=== PATIENT | female | born 1945 | race African-American/Black ===

== ENCOUNTER 2017-01-26 19:53 | Emergency (ER) | payer OTHER ==
[2017-01-26 20:06] VITALS: TEMP 98; BMI 29.7
[2017-01-26] MEDS ORDERED: OXYCODONE/APAP 5/325MG COMBO TABLET PO ONE ×2 (20:45→21:51)
[2017-01-26] MEDS ORDERED: OXYCODONE/APAP 5/325MG COMBO TABLET ONE ×2 (20:48→22:04)
--- NOTE | 2017-01-26 21:12 | PDOC ---
[id number] No Limitations - History of Present Illness Initial Comments: 01/26/17 21:29 The patient is a 71 year old female with past medical history of hypertension, hyperlipidemia, type 2 diabetes, ESRD (on dialysis TTS) who presents to the ED with complaints of left foot pain which began today. She locates the pain to the base of 5th metatarsal. She states she usually experiences left foot pain, but pain that began today is different today. She denies any recent trauma/ surgeries. She denies any recent illness, fever, chills, nausea, vomiting, diarrhea, cough, shortness of breath, chest pain or urinary symptoms. PCP: Shawn Bansal <Mel Mcgowan - Last Filed: 01/26/17 23:08> <Phill Reveles - Last Filed: 02/05/17 01:23> - General Chief Complaint: Pain Stated Complaint: FOOT PAIN Time Seen by Provider: 01/26/17 20:34 Past History <Mel Mcgowan - Last Filed: 01/26/17 23:08> - Past Medical History Anemia: No Asthma: Yes Cancer: No Cardiac Disorders: No CVA: No COPD: No CHF: No Dementia: No Diabetes: Yes (steriod induced) Dialysis: Yes GI Disorders: No Disorders: No HTN: Yes Hypercholesterolemia: No Liver Disease: No Seizures: No Thyroid Disease: No - Surgical History Abdominal Surgery: No Appendectomy: No Cardiac Surgery: No Cholecystectomy: No Lung Surgery: No Neurologic Surgery: No Orthopedic Surgery: No - Immunization History Immunization Up to Date: Yes - Psycho/Social/Smoking Cessation Hx Anxiety: No Suicidal Ideation: No Smoking History: Never smoked Have you smoked in the past 12 months: No Information on smoking cessation initiated: No Hx Alcohol Use: No Drug/Substance Use Hx: No Substance Use Type: None Hx Substance Use Treatment: No <Phill Reveles - Last Filed: 02/05/17 01:23> - Past Medical History Allergies/Adverse Reactions: Allergies Allergy/AdvReac Type Severity Reaction Status Date / Time Penicillins Allergy "UNSURE-I Verified 01/26/17 20:06 WAS A CHILD" ciprofloxacin AdvReac Verified 01/26/17 20:06 Home Medications: Ambulatory Orders Atenolol [Tenormin -] 25 mg PO DAILY 12/14/15 Pantoprazole Sodium [Protonix -] 40 mg PO DAILY 12/14/15 Folic Acid/Vit Bcomp,C [Dialyvite 800 Tablet] 0.8 mg PO DAILY 01/27/16 Sevelamer Carbonate [Renvela] 800 mg PO TID 01/27/16 Cinacalcet HCl [Sensipar] 30 mg PO DAILY 01/26/17 Oxycodone HCl/Acetaminophen [Percocet 10-325 mg Tablet] 1 each PO TID PRN #6 tablet MDD 3 01/26/17 Review of Systems - Review of Systems Able to Perform ROS?: Yes Comments:: 01/26/17 21:29 GENERAL/CONSTITUTIONAL: No fever or chills. No weakness. HEAD, EYES, EARS, NOSE AND THROAT: No change in vision. No ear pain or discharge. No sore throat. CARDIOVASCULAR: No chest pain or shortness of breath. RESPIRATORY: No cough, wheezing, or hemoptysis. GASTROINTESTINAL: No nausea, vomiting, diarrhea or constipation. GENITOURINARY: No dysuria, frequency, or change in urination. MUSCULOSKELETAL: Present: left foot pain No neck or back pain. SKIN: No rash NEUROLOGIC: No headache, vertigo, loss of consciousness, or change in strength/ sensation. ENDOCRINE: No increased thirst. No abnormal weight change. HEMATOLOGIC/LYMPHATIC: No anemia, easy bleeding, or history of blood clots. ALLERGIC/IMMUNOLOGIC: No hives or skin allergy. All Other Systems: Reviewed and Negative <Mel Mcgowan - Last Filed: 01/26/17 23:08> *Physical Exam - Vital Signs Last Vital Signs Temp Pulse Resp BP Pulse Ox 98.0 F 76 17 145/74 99 01/26/17 20:03 01/26/17 20:03 01/26/17 20:03 01/26/17 20:03 01/26/17 20:03 - Physical Exam Comments: 01/26/17 21:30 GENERAL: Awake, alert, and fully oriented, in no acute distress HEAD: No signs of trauma EYES: PERRLA, EOMI, sclera anicteric, conjunctiva clear ENT: Auricles normal inspection, hearing grossly normal, nares patent, oropharynx clear without exudates. Moist mucosa NECK: Normal ROM, supple, no lymphadenopathy, JVD, or masses LUNGS: Breath sounds equal, clear to auscultation bilaterally. No wheezes, and no crackles HEART: Regular rate and rhythm, normal S1 and S2, no murmurs, rubs or gallops ABDOMEN: Soft, nontender, normoactive bowel sounds. No guarding, no rebound. No masses EXTREMITIES: Pain on palpation to 5th metatarsal. Normal range of motion, no edema. No clubbing or cyanosis. No cords, no erythema. NEUROLOGICAL: Cranial nerves II through XII grossly intact. Normal speech, normal gait SKIN: Warm, Dry, normal turgor, no rashes or lesions noted. <Mel Mcgowan - Last Filed: 01/26/17 23:08> - Vital Signs Last Vital Signs Temp Pulse Resp BP Pulse Ox 98.0 F 76 17 145/74 99 01/26/17 20:03 01/26/17 20:03 01/26/17 20:03 01/26/17 20:03 01/26/17 20:03 <Phill Reveles - Last Filed: 02/05/17 01:23> ED Treatment Course - RADIOLOGY Radiograph Interpretation: 01/26/17 23:08 Referring Physician: Phill Reveles Patient Name: Leonela Ricsk THIS IS A PRELIMINARY REPORT FROM IMAGING VIDEOTAPE RECORDING ENGINEER IMAGES: 3 EXAM DATE AND TIME: 21:12:17.0 EXAM: X-RAY LEFT FOOT Periosteal reaction fifth metatarsal and cuboid bone, possibly due to chronic soft tissue inflammation but cannot exclude osteomyelitis. Degenerative chagnes ankle, midfoot and forefoot. Contour deformities multiple toes and metatarsals. Probable amputations fourth and fifth toes. No acute fracture or dislocation. THIS DOCUMENT HAS BEEN ELECTRONICALLY SIGNED Suzette Mcknight M.D. 01/26/2017 22:52 DEJUAN Crawford Please call Imaging Cylinder Sander Operator [phone] ([phone]) with questions. - Medications Given in the ED: ED Medications Discontinued Medications Generic Name Dose Route Start Last Admin Trade Name Freq PRN Reason Stop Dose Admin Oxycodone/Acetaminophen 1 combo 01/26/17 20:45 01/26/17 20:51 Percocet 5/325 - PO 01/26/17 20:46 1 combo ONCE ONE Administration <Mel Mcgowan - Last Filed: 01/26/17 23:08> - RADIOLOGY Radiology Studies Ordered: Category Date Time Status FOOT-LEFT [RAD] Stat Radiology 01/26/17 21:08 Ordered - Medications Given in the ED: ED Medications Discontinued Medications Generic Name Dose Route Start Last Admin Trade Name Cristiana PRN Reason Stop Dose Admin Oxycodone/Acetaminophen 1 combo 01/26/17 20:45 01/26/17 20:51 Percocet 5/325 - PO 01/26/17 20:46 1 combo ONCE ONE Administration <Phill Reveles - Last Filed: 02/05/17 01:23> Medical Decision Making - Medical Decision Making 01/26/17 23:05 This is a 71yo F with h/o leprosy who presents with breakthrough of her chronic pain. She denies trauma and has constitutional symptoms. She reports the pain is identical to her typical breakthrough pain. She is given analgesia with percocet and will be given Rx for same. The image shows significant bony dystruction which is chronic and she has no suggestion clinically or objectively of infection. Also, I have suggested her return if there is any change otherwise and to follow up with the PMD within the next 24 hours for reevaluation. She ambulates well without any assistance. 01/28/17 02:07 She is feeling improved and has no current symptoms; She is given analgesia and instructed to return to the ED if there is any change otherwise in symptoms. The XR shows chronic destruction secondary to remote issue. 02/05/17 01:23 <Phill Reveles - Last Filed: 02/05/17 01:23> *DC/Admit/Observation/Transfer - Attestations Scribe Attestion: 01/26/17 21:36 Documentation prepared by Mel Mcgowan, acting as medical pathologist for Phill Reveles MD. <Mel Mcgowan - Last Filed: 01/26/17 23:08> - Discharge Dispostion Admit: No Decision to Admit order Date/Time: 01/26/17 23:02 <Phill Reveles - Last Filed: 02/05/17 01:23> Diagnosis at time of Disposition: Foot pain, bilateral, Foot pain, left - Discharge Dispostion Disposition: HOME Condition at time of disposition: Good - Prescriptions Prescriptions: Oxycodone HCl/Acetaminophen [Percocet 10-325 mg Tablet] 1 each PO TID PRN #6 tablet MDD 3 PRN Reason: Pain - Referrals Referrals: Shawn Bansal MD [Primary Care Provider] - - Patient Instructions Additional Instructions: At this time, the symptoms are likely breakthrough pain from your chronic foot issues. Please follow up with a laborer [facility] and your PMD within the next 24 hours for reevaluation. If there is any change otherwise in your symptoms, please return immediately to the ED.
[2017-01-26] MEDS ORDERED: traMADol HCL 50 MG TABLET PO ONE (23:03)
[2017-01-26] MEDS ORDERED: traMADol HCL 50 MG TABLET ONE (23:06)
[2017-01-26 23:09] VITALS: BP 138/76; PULSE 77
== END 2017-01-26 23:10 | disposition home or self-care (01) ==
LOC: JER 19:53 → JERFT 19:53 → JER 23:10
DX: M79.672 Pain in left foot (principal); M79.671 Pain in right foot; A30.9 Leprosy, unspecified; J45.909 Unspecified asthma, uncomplicated; I10 Essential (primary) hypertension; Z99.2 Dependence on renal dialysis
CPT/HCPCS: 73630-TC-LT; 99282-25

== ENCOUNTER 2017-03-31 09:47 | Inpatient (IN) | payer OTHER ==
--- NOTE | 2017-03-31 10:49 | PDOC ---
History of Present Illness <Marquita Mason - Last Filed: 03/31/17 12:17> - General History Source: Patient Exam Limitations: No Limitations - History of Present Illness Initial Comments: 03/31/17 10:58 The patient is a 71 year old female with past medical history of hypertension, hyperlipidemia, type 2 diabetes, ESRD (on dialysis TTS) who presents to the ED with a possible upper right extremity fistula clot. She states she was unable to get her dialysis today because the venous needle couldn't flush. She denies fever, chills, nausea, vomiting, diarrhea, dysuria, frequency. Patient has had the right upper arm extremity fistula for 1 year. She recently had a clot extraction for upper vein thrombus 4 days ago. Fistula was working fine after. Patients last dialysis two days ago No fever chills nausea vomiting Vascular surgeon: Dr. Maldonado PCP: Dr. Shawn Bansal <Blaise Beverly - Last Filed: 03/31/17 12:22> - General Chief Complaint: Dialysis Shunt Problem Stated Complaint: AV GRAFT COMPLICATIONS (DIALYSIS) Past History - Past Medical History Anemia: No Asthma: Yes Cancer: No Cardiac Disorders: No CVA: No COPD: No CHF: No Dementia: No Diabetes: Yes (steriod induced) Dialysis: Yes (tues, th, sat) GI Disorders: No Disorders: No HTN: Yes Hypercholesterolemia: No Liver Disease: No Seizures: No Thyroid Disease: No - Surgical History Abdominal Surgery: No Appendectomy: No Cardiac Surgery: No Cholecystectomy: No Lung Surgery: No Neurologic Surgery: No Orthopedic Surgery: Yes (LEFT HAND MANY YEARS AGO) - Immunization History Immunization Up to Date: Yes - Psycho/Social/Smoking Cessation Hx Anxiety: No Suicidal Ideation: No Smoking History: Never smoked Have you smoked in the past 12 months: No Information on smoking cessation initiated: No Hx Alcohol Use: No Drug/Substance Use Hx: No Substance Use Type: None Hx Substance Use Treatment: No <Marquita Mason - Last Filed: 03/31/17 12:17> <Blaise Beverly - Last Filed: 03/31/17 12:22> - Past Medical History Allergies/Adverse Reactions: Allergies Allergy/AdvReac Type Severity Reaction Status Date / Time Penicillins Allergy "UNSURE-I Verified 03/31/17 09:52 WAS A CHILD" ciprofloxacin AdvReac Severe Verified 03/31/17 09:52 Home Medications: Ambulatory Orders Atenolol [Tenormin -] 25 mg PO DAILY 12/14/15 Pantoprazole Sodium [Protonix -] 40 mg PO DAILY 12/14/15 Folic Acid/Vit Bcomp,C [Dialyvite 800 Tablet] 0.8 mg PO DAILY 01/27/16 Sevelamer Carbonate [Renvela] 800 mg PO TID 01/27/16 Cinacalcet HCl [Sensipar] 30 mg PO DAILY 01/26/17 Review of Systems - Review of Systems Able to Perform ROS?: Yes Comments:: 03/31/17 10:58 GENERAL/CONSTITUTIONAL: No fever or chills. No weakness. HEAD, EYES, EARS, NOSE AND THROAT: No change in vision. No ear pain or discharge. No sore throat. CARDIOVASCULAR: No chest pain or shortness of breath. RESPIRATORY: No cough, wheezing, or hemoptysis. GASTROINTESTINAL: No nausea, vomiting, diarrhea or constipation. GENITOURINARY: No dysuria, frequency, or change in urination. MUSCULOSKELETAL: No joint or muscle swelling or pain. No neck or back pain. SKIN: No rash NEUROLOGIC: No headache, vertigo, loss of consciousness, or change in strength/ sensation. ENDOCRINE: No increased thirst. No abnormal weight change. Upper right extremity fistula. HEMATOLOGIC/LYMPHATIC: No anemia, easy bleeding, or history of blood clots. ALLERGIC/IMMUNOLOGIC: No hives or skin allergy. <Blaise Beverly - Last Filed: 03/31/17 12:22> *Physical Exam - Vital Signs Last Vital Signs Temp Pulse Resp BP Pulse Ox 97.5 F L 68 18 156/70 100 03/31/17 09:53 03/31/17 09:53 03/31/17 09:53 03/31/17 09:53 03/31/17 09:53 <Marquita Mason - Last Filed: 03/31/17 12:17> - Vital Signs Last Vital Signs Temp Pulse Resp BP Pulse Ox 97.5 F L 68 18 156/70 100 03/31/17 09:53 03/31/17 09:53 03/31/17 09:53 03/31/17 09:53 03/31/17 09:53 - Physical Exam Comments: 03/31/17 10:59 GENERAL: Awake, alert, and fully oriented, in no acute distress HEAD: No signs of trauma EYES: PERRLA, EOMI, sclera anicteric, conjunctiva clear ENT: Auricles normal inspection, hearing grossly normal, nares patent, oropharynx clear without exudates. Moist mucosa NECK: Normal ROM, supple, no lymphadenopathy, JVD, or masses LUNGS: Breath sounds equal, clear to auscultation bilaterally. No wheezes, and no crackles HEART: Regular rate and rhythm, normal S1 and S2, no murmurs, rubs or gallops ABDOMEN: Soft, nontender, normoactive bowel sounds. No guarding, no rebound. No masses EXTREMITIES: right upper extremity fistula is good, thrill, bruin, no erythema , no palpable clot. Normal range of motion, no edema. No clubbing or cyanosis. No cords, erythema, or tenderness NEUROLOGICAL: Normal speech, normal gait SKIN: Warm, Dry, normal turgor, no rashes or lesions noted. <Blaise Beverly - Last Filed: 03/31/17 12:22> Heart Score/ECG Review - ECG Intrepretation Rhythm: Regular Rhythm Comment:: 03/31/17 12:14 rate 69 bpm, normal axis. no st elevation or depression <Marquita Mason - Last Filed: 03/31/17 12:17> ED Treatment Course - LABORATORY CBC & Chemistry Diagram: 03/31/17 11:20 03/31/17 11:20 <Marquita Mason - Last Filed: 03/31/17 12:17> - LABORATORY CBC & Chemistry Diagram: 03/31/17 11:20 03/31/17 11:20 <Blaise Beverly - Last Filed: 03/31/17 12:22> Medical Decision Making - Medical Decision Making 03/31/17 10:45 71 yo F ESRD TRS here with fistula not working. states had venoplasty on right arm for upper arm clot 4 days ago. fistula was working day following. today not working. no sob. no chills. no n/v last dialysis 2 [address]. vascular surgeon Dr. maldonado on exam awake alert, no acute distress. lungs clear no wheeze. heart RRR no m/r/ b. abd soft nt. skin warm and dry. RUE fistula good bruit, thrill. plan : d/w dr. maldonado, vascular surgeon, r/o hyperkalemia, ekg labs . will possible require us RUQ r/o upper ext DVT. 03/31/17 11:07 03/31/17 12:15 d/w dr. maldonado, believes fistulal working, good bruit, ultrasound shows patent fistula. will d/w dr. mcfarlane, arrange for dialysis today. d/w dr. hzeng for admission <Marquita Mason - Last Filed: 03/31/17 12:17> - Medical Decision Making 03/31/17 11:[address] Stefano Maldonado. <Blaise Beverly - Last Filed: 03/31/17 12:22> *DC/Admit/Observation/Transfer - Discharge Dispostion Admit: Yes <Marquita Mason - Last Filed: 03/31/17 12:17> - Attestations Scribe Attestion: 03/31/17 11:00 Documentation prepared by Blaise Beverly, acting as medical office secretary for Marquita Mason MD, MD. <Blaise Beverly - Last Filed: 03/31/17 12:22> Diagnosis at time of Disposition: AV fistula, Dialysis AV fistula malfunction - Referrals Referrals: Shawn Bansal MD [Primary Care Provider] -
[2017-03-31 11:45] LABS: BASOPHIL 0.7 % (0-2.0); EOSINOPHIL 4.3 % (0-4.5); MCH 34.7 pg (25.7-33.7); MCHC 33.4 g/dl (32.0-36.0); MEAN CELL VOLUME 104.1 fl (80-96); MEAN PLT VOLUME 8.3 fl (7.5-11.1); PLATELET COUNT 179 K/MM3 (134-434); RDW 17.1 % (11.6-15.6); WHITE BLOOD COUNT 5.9 K/mm3 (4.0-10.0)
[2017-03-31 11:55] LABS: CALCIUM 8.4 mg/dL (8.5-10.1)
[2017-03-31 12:01] LABS: ALBUMIN 3.8 g/dl (3.4-5.0); BILIRUBIN,TOTAL 0.7 mg/dL (0.2-1.0); COCKROFT - GAULT 5.678
--- NOTE | 2017-03-31 12:01 | EKG ---
Test Reason : Blood Pressure : / mmHG Vent. Rate : 069 BPM Atrial Rate : 069 BPM P-R Int : 178 ms QRS Dur : 086 ms QT Int : 420 ms P-R-T Axes : 020 009 057 degrees QTc Int : 450 ms NORMAL SINUS RHYTHM NORMAL ECG WHEN COMPARED WITH ECG OF 01-JAN-2016 08:21, NO SIGNIFICANT CHANGE WAS FOUND Confirmed by MD FRANTZ, AFUA ([id number]) on 03/31/2017 12:01:26 PM Referred By: Confirmed By:AFUA LANDRY MD
[2017-03-31 12:06] LABS: CREATININE 10.7 mg/dL (0.55-1.02)
[2017-03-31] MEDS ORDERED: EPOETIN ALFA 10,000 UNIT/1 ML VIAL SQ ONE (12:45)
--- NOTE | 2017-03-31 14:47 | CONSULT ---
Consult Consult Specialty:: Nephrology ( Drs. Rashid/ Giuseppe) Referred by:: Dr. Mason Reason for Consultation:: Malfunctining AV Fistula. The patient came for dialysis to the HD unit, and the AVF was not functioning well. Cannulation was not possible. 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, secondary to ANCA vasculitis ) Infectious Disease: Yes: Other (leprosy at age 18 treated for four years) Musculoskeletal: Yes: Other (digital amp) Dermatology: Yes: Other (leprosy related scarring) - Past Surgical History Past Surgical History: Yes: None - Alcohol/Substance Use Hx Alcohol Use: No History of Substance Use: reports: None - Smoking History Smoking history: Never smoked Have you smoked in the past 12 months: No - Social History Usual Living Arrangement: With Child ADL: Independent History of Recent Travel: No Home Medications - Allergies Allergies/Adverse Reactions: Allergies Allergy/AdvReac Type Severity Reaction Status Date / Time Penicillins Allergy "UNSURE-I Verified 03/31/17 09:52 WAS A CHILD" ciprofloxacin AdvReac Severe Verified 03/31/17 09:52 - Home Medications Home Medications: Ambulatory Orders Atenolol [Tenormin -] 25 mg PO DAILY 12/14/15 Pantoprazole Sodium [Protonix -] 40 mg PO DAILY 12/14/15 Folic Acid/Vit Bcomp,C [Dialyvite 800 Tablet] 0.8 mg PO DAILY 01/27/16 Sevelamer Carbonate [Renvela] 800 mg PO TID 01/27/16 Cinacalcet HCl [Sensipar] 30 mg PO DAILY 01/26/17 Review of Systems - Review of Systems Constitutional: denies: Fever, Lethargy, Loss of Appetite Respiratory: denies: Cough, Hemoptysis Genitourinary: denies: Burning Musculoskeletal: denies: Back Pain Physical Exam Vital Signs: Vital Signs Temperature 97.7 F 03/31/17 13:26 Pulse Rate 62 03/31/17 13:26 Respiratory Rate 20 03/31/17 13:26 Blood Pressure 157/71 03/31/17 13:26 O2 Sat by Pulse Oximetry (%) 100 03/31/17 13:26 Constitutional: Yes: Well Nourished, No Distress HENT: Yes: Normocephalic Neck: Yes: Trachea Midline Cardiovascular: Yes: S1, S2 Respiratory: Yes: CTA Bilaterally. No: Rales, Rhonchi, SOB Gastrointestinal: Yes: Normal Bowel Sounds, Soft Extremities: Yes: Other (right arm AVF with good bruit) Problem List - Problems (1) AV fistula Code(s): I77.0 - ARTERIOVENOUS FISTULA, ACQUIRED (2) Dialysis AV fistula malfunction Code(s): T82.590A - [facility] COMPL OF SURGICALLY CREATED ARTERIOVENOUS FISTULA, INIT (3) Hyperkalemia Code(s): E87.5 - HYPERKALEMIA (4) Suzanne's granulomatosis with renal involvement Code(s): M31.31 - SUZANNE'S GRANULOMATOSIS WITH RENAL INVOLVEMENT (5) End stage chronic kidney disease Code(s): N18.6 - END STAGE RENAL DISEASE Z99.2 - DEPENDENCE ON RENAL DIALYSIS Assessment/Plan 71 y/o female with ESRD, on HD, admitted with malfunctoning right arm AVF. The Patient's AVF was cannulated withoutincident. Most likely problem in the HD unit was vascular spasm , with inability to cannulate the fistula The AVF is working well. The patient receiving HD. Goood blood flow. No objection to discharge after dialysis. Thank you. Joy Rashid MD
[2017-03-31 17:59] VITALS: BMI 30.9
--- NOTE | 2017-03-31 18:40 | HP ---
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, secondary to ANCA vasculitis ) Heme/Onc: Yes: Anemia Infectious Disease: Yes: Other (leprosy at age 18 treated for four years) Musculoskeletal: Yes: Other (digital amp) Dermatology: Yes: Other (leprosy related scarring) - Past Surgical History Past Surgical History: Yes: None - Smoking History Smoking history: Never smoked Have you smoked in the past 12 months: No - Alcohol/Substance Use Hx Alcohol Use: No History of Substance Use: reports: None - Social History ADL: Independent History of Recent Travel: No Home Medications - Allergies Allergies/Adverse Reactions: Allergies Allergy/AdvReac Type Severity Reaction Status Date / Time Penicillins Allergy "UNSURE-I Verified 03/31/17 09:52 WAS A CHILD" ciprofloxacin AdvReac Severe Verified 03/31/17 09:52 - Home Medications Home Medications: Ambulatory Orders Atenolol [Tenormin -] 25 mg PO DAILY 12/14/15 Pantoprazole Sodium [Protonix -] 40 mg PO DAILY 12/14/15 Folic Acid/Vit Bcomp,C [Dialyvite 800 Tablet] 0.8 mg PO DAILY 01/27/16 Sevelamer Carbonate [Renvela] 800 mg PO TID 01/27/16 Cinacalcet HCl [Sensipar] 30 mg PO DAILY 01/26/17 Physical Examination Vital Signs: Vital Signs Temperature 97.6 F 03/31/17 18:00 Pulse Rate 76 03/31/17 18:00 Respiratory Rate 18 03/31/17 18:00 Blood Pressure 114/72 03/31/17 18:00 O2 Sat by Pulse Oximetry (%) 96 03/31/17 17:51
[2017-03-31] MEDS: SEVELAMER CARBONATE 800 MG TAB (FP) PO SCH (21:34)
[2017-04-01] MEDS: SEVELAMER CARBONATE 800 MG TAB (FP) PO SCH (08:15)
[2017-04-01 08:55] VITALS: BP 152/69; PULSE 66; TEMP 98
[2017-04-01] MEDS ORDERED: VITAMIN B COMP W-C 1 EA TABLET PO SCH (10:00)
[2017-04-01] MEDS ORDERED: CINACALCET HCL 30 MG TAB (FP) PO SCH (10:00)
[2017-04-01] MEDS ORDERED: PANTOPRAZOLE 40 MG TABLET (FP) PO SCH (10:00)
[2017-04-02 14:12] LABS: HEP B SURFACE AB Reactive (.)
== END 2017-04-01 09:14 | disposition home or self-care (01) | DRG 314 ==
LOC: JER 09:47 → JERBED 12:20 → J5S 18:13
PROVIDERS: ADMIT Internal Medicine; ATTEND Internal Medicine
PROC: 5A1D00Z (ICD-10-PCS; principal; 2017-03-31)
DX: T82.590A Other mechanical complication of surgically created arteriovenous fistula, initial encounter (principal); N18.6 End stage renal disease; M31.31 Wegener's granulomatosis with renal involvement; I12.0 Hypertensive chronic kidney disease with stage 5 chronic kidney disease or end stage renal disease; Y83.8 Other surgical procedures as the cause of abnormal reaction of the patient, or of later complication, without mention of misadventure at the time of the procedure; Y92.89 Other specified places as the place of occurrence of the external cause; K21.9 Gastro-esophageal reflux disease without esophagitis; D64.9 Anemia, unspecified; E78.5 Hyperlipidemia, unspecified; E09.9 Drug or chemical induced diabetes mellitus without complications; T38.0X5A Adverse effect of glucocorticoids and synthetic analogues, initial encounter; Z99.2 Dependence on renal dialysis; Z89.029 Acquired absence of unspecified finger(s)
CPT/HCPCS: 36415; 80053; 85025; 86704; 86706; 86708; 86803; 87340; 93005; 93010; 93971; 94760; 99284-25; J0885

== ENCOUNTER 2017-12-05 05:46 | Emergency (ER) | payer OTHER ==
[2017-12-05 06:31] VITALS: TEMP 97.9; BMI 30.3
--- NOTE | 2017-12-05 07:37 | PDOC ---
History of Present Illness - General History Source: Patient Exam Limitations: No Limitations - History of Present Illness Initial Comments: 12/05/17 08:11 The patient is a 71 year old female, with a significant past medical history of asthma, diabetes, hypertension, ESRD(on dialysis T, , S, last completed dialysis yesterday; blood work was done which was negative), who presents to the emergency department complaining of nose bleeds for approximately 4 days. The patient reports intermittent nose bleeds for the past 4 days with episodes lasting about 15 minutes. However, this morning patient reports sudden onset of epistaxis when she woke up and her episode lasted about 45 minutes. She describes her bleeding as clots from the left nostril. Patient reports she has been applying pressure to her nose, ice to her forehead, and nasal saline solution with mild relief of symptoms. She denies any associated fever, chills, cough, headache, dizziness, or lightheadedness. She denies any nausea, vomiting , hemoptysis, diarrhea, or constipation. Patient reports her room gets really warm at night and she occasionally experiences a dried nose. She denies any recent trauma. She denies any chest pain, shortness of breath, diaphoresis, or palpitations. She denies any recent travel or sick contacts. Allergies: Penicillins, Ciprofloxacin Past Surgical History: Amputation of left hand metacarpals Social History: Non smoker. No ETOH or recreational drug use. PCP: Dr. Bansal <Nehal Welch - Last Filed: 12/05/17 08:11> - General History Source: Patient Exam Limitations: No Limitations <Marcy Wharton - Last Filed: 12/05/17 11:40> - General Chief Complaint: Nasal Bleeding Stated Complaint: NOSEBLEED Time Seen by Provider: 12/05/17 07:36 Past History <Nehal Welch - Last Filed: 12/05/17 08:11> - Past Medical History Anemia: No Asthma: Yes Cancer: No Cardiac Disorders: No CVA: No COPD: No CHF: No Dementia: No Diabetes: Yes (steriod induced) Dialysis: Yes (, , sun) GI Disorders: No Disorders: No HTN: Yes Hypercholesterolemia: No Liver Disease: No Seizures: No Thyroid Disease: No - Surgical History Abdominal Surgery: No Appendectomy: No Cardiac Surgery: No Cholecystectomy: No Lung Surgery: No Neurologic Surgery: No Orthopedic Surgery: Yes (LEFT HAND MANY YEARS AGO) - Immunization History Immunization Up to Date: Yes - Suicide/Smoking/Psychosocial Hx Smoking History: Never smoked Have you smoked in the past 12 months: No Information on smoking cessation initiated: No Hx Alcohol Use: No Drug/Substance Use Hx: No Substance Use Type: None Hx Substance Use Treatment: No <Marcy Wharton - Last Filed: 12/05/17 11:40> - Past Medical History Allergies/Adverse Reactions: Allergies Allergy/AdvReac Type Severity Reaction Status Date / Time Penicillins Allergy "UNSURE-I Verified 12/05/17 06:28 WAS A CHILD" ciprofloxacin AdvReac Severe Verified 12/05/17 06:28 Home Medications: Ambulatory Orders Pantoprazole Sodium [Protonix -] 40 mg PO DAILY 12/14/15 Sevelamer Carbonate [Renvela -] 800 mg PO TID 01/27/16 Cinacalcet HCl [Sensipar] 30 mg PO DAILY 01/26/17 Review of Systems - Review of Systems Able to Perform ROS?: Yes Comments:: 12/05/17 08:11 GENERAL/CONSTITUTIONAL: No: fever, chills, weakness, loss of appetite. HEAD, EYES, EARS, NOSE AND THROAT: Yes: epistaxis. No: change in vision, ear pain, discharge, sore throat, throat swelling. CARDIOVASCULAR: No: chest pain, lightheadedness, palpitations, syncope RESPIRATORY: No: cough, shortness of breath, wheezing, hemoptysis, stridor. GASTROINTESTINAL: No: nausea, vomiting, abdominal cramping, diarrhea, rectal bleeding, constipation. GENITOURINARY: No: dysuria, hematuria, frequency, urgency, flank pain. MUSCULOSKELETAL: No: back pain, neck pain, joint pain, muscle swelling or pain SKIN AND BREASTS: No: lesions, pallor, rash or easy bruising. NEUROLOGIC: No: headache, vertigo, paresthesias, weakness ENDOCRINE: No: unexplained weight gain or loss HEMATOLOGIC/LYMPHATIC: No: anemia, easy bleeding, swelling nodes <Welch,Giomilsy - Last Filed: 12/05/17 08:11> *Physical Exam - Vital Signs Last Vital Signs Temp Pulse Resp BP Pulse Ox 97.9 F 85 14 150/87 100 12/05/17 06:29 12/05/17 06:29 12/05/17 06:29 12/05/17 06:29 12/05/17 06:29 - Physical Exam Comments: 12/05/17 08:11 GENERAL: The patient is in no acute distress. HEAD: Normal with no signs of trauma. EYES: PERRLA, EOMI, sclera anicteric, conjunctiva clear. ENT: Dried blood in the left nares. No blood in the pharynx, Ears normal, oropharynx clear without exudates. NECK: Normal range of motion, supple without lymphadenopathy, JVD, or masses. LUNGS: Breath sounds equal, clear to auscultation bilaterally. No wheezes, and no crackles. HEART:Regular rate and rhythm, normal S1 and S2 without murmur, rub or gallop. ABDOMEN: Soft, nontender, normoactive bowel sounds. No guarding, no rebound. EXTREMITIES: Normal range of motion, no edema. No clubbing or cyanosis. No erythema, or tenderness. NEUROLOGICAL: Cranial nerves II through XII grossly intact. Normal speech. No focal neurological deficits. MUSCULOSKELETAL: Back non-tender to palpation, no CVA tenderness SKIN: Warm, Dry, normal turgor, no rashes or lesions noted. <Nehal Welch - Last Filed: 12/05/17 08:11> - Vital Signs Last Vital Signs Temp Pulse Resp BP Pulse Ox 97.9 F 85 14 150/87 100 12/05/17 06:29 12/05/17 06:29 12/05/17 06:29 12/05/17 06:29 12/05/17 06:29 <Marcy Wharton - Last Filed: 12/05/17 11:40> ED Treatment Course - LABORATORY CBC & Chemistry Diagram: 12/05/17 08:30 12/05/17 08:30 <Marcy Wharton - Last Filed: 12/05/17 11:40> Medical Decision Making - Medical Decision Making 12/05/17 10:18 71-year-old female, history of Kelly's disease, history of end-stage renal disease on dialysis Tuesdays, , Saturdays Patient has had recurrent nosebleeds which spontaneously stopped himself. This morning her nosebleed lasted probably 45 minutes. No headache, no trauma Bleeding is mostly from the left naris Differential diagnosis: Thrombocytosis, rated INR, uremia, trauma Kesselbach's plexus Patient repeatedly assessed in emergency department. No bleeding noted. 12/05/17 10:26 Laboratory Tests 12/05/17 12/05/17 08:30 08:30 WBC 7.1 RBC 3.65 Hgb 11.9 Hct 37.0 Plt Count 190 Neutrophils % 67.9 Lymphocytes % 19.1 D INR 0.96 12/05/17 10:27 Into to be discharge. Will ask patient follow up with ENT Pt also should use humidifier 12/05/17 11:28 No additional bleeding noted Will discharge to home ENT appointment made for tomorrow morning Clinical Impression: epistaxis, initial presentation <Marcy Wharton - Last Filed: 12/05/17 11:40> *DC/Admit/Observation/Transfer - Attestations Scribe Attestion: 12/05/17 08:12 Documentation prepared by Nehal Welch, acting as senior medical technologist for Marcy Wharton MD. <Nehal Welch - Last Filed: 12/05/17 08:11> - Discharge Dispostion Admit: No <Marcy Wharton - Last Filed: 12/05/17 11:40> Diagnosis at time of Disposition: Epistaxis - Discharge Dispostion Disposition: HOME Condition at time of disposition: Stable - Referrals Referrals: Shawn Bansal MD [Primary Care Provider] - Phill Meraz MD [Staff Physician] - - Patient Instructions Printed Discharge Instructions: DI for Nosebleed, Nosebleeds (Alternative Therapy), Nosebleed Additional Instructions: Ms. Ricks Thanks for coming in to the ER today Please avoid blowing your nose Please return to the ER for any bleeding, dizziness, lightheadedness, any other concerns or complaints Please be sure to go to your appointment with the ENT doctor tomorrow - Post Discharge Activity
[2017-12-05 08:21] VITALS: PULSE 83
[2017-12-05 09:06] LABS: BASO % 0.8 % (0-2.0); EOS % 3.3 % (0-4.5); HEMOGLOBIN 11.9 GM/dL (10.7-15.3); LYMPH % 19.1 % (8-40); MCH 32.5 pg (25.7-33.7); MCHC 32.1 g/dl (32.0-36.0); MEAN CELL VOLUME 101.4 fl (80-96); MEAN PLT VOLUME 8.8 fl (7.5-11.1); MONO % 8.9 % (3.8-10.2); NEUT % 67.9 % (42.8-82.8); PLATELET COUNT 190 K/MM3 (134-434); RBC 3.65 M/mm3 (3.60-5.2); RDW 15.6 % (11.6-15.6); WHITE BLOOD COUNT 7.1 K/mm3 (4.0-10.0)
[2017-12-05 09:25] LABS: INR 0.96 (0.82-1.09); PROTHROMBIN TIME (PATIENT) 10.9 SEC (9.98-11.88)
[2017-12-05 09:39] LABS: ANION GAP 12 (8-16); BILIRUBIN,TOTAL 0.6 mg/dL (0.2-1.0); BLOOD UREA NITROGEN 50 mg/dL (7-18); CALCIUM 8.7 mg/dL (8.5-10.1); CHLORIDE 98 mmol/L (98-107); CO2 27 mmol/L (21-32); GLUCOSE,RANDOM 105 mg/dL (74-106); POTASSIUM 5.1 mmol/L (3.5-5.1); SGOT/AST 12 U/L (15-37); SGPT/ALT 17 U/L (12-78); SODIUM 137 mmol/L (136-145); TOT PROT 7.5 g/dl (6.4-8.2)
[2017-12-05 11:01] LABS: CREATININE 8.5 mg/dL (0.55-1.02)
[2017-12-05 11:11] LABS: ALK PHOS 161 U/L (45-117)
[2017-12-05 11:59] VITALS: BP 156/85
== END 2017-12-05 11:59 | disposition home or self-care (01) ==
LOC: JER 05:46
DX: R04.0 Epistaxis (principal); I12.0 Hypertensive chronic kidney disease with stage 5 chronic kidney disease or end stage renal disease; E09.22 Drug or chemical induced diabetes mellitus with diabetic chronic kidney disease; N18.6 End stage renal disease; T38.0X5A Adverse effect of glucocorticoids and synthetic analogues, initial encounter; N17.8 Other acute kidney failure; Z99.2 Dependence on renal dialysis; J45.909 Unspecified asthma, uncomplicated; Z89.112 Acquired absence of left hand; A30 Leprosy [Hansen's disease]
CPT/HCPCS: 36415; 80053; 85025; 85610; 99284-25

== ENCOUNTER 2018-02-23 16:48 | Inpatient (IN) | payer OTHER ==
[2018-02-24 00:49] VITALS: BMI 28.1
[2018-03-04 10:38] VITALS: BP 151/70; PULSE 90; TEMP 98.5
== END 2018-03-04 14:03 | disposition home or self-care (01) | DRG 871 ==
LOC: JER 16:48 → JERBED 19:41 → J8W 23:27
PROVIDERS: ADMIT Internal Medicine; ATTEND Nurse Practitioner Family
PROC: 5A1D70Z Performance of Urinary Filtration, Intermittent, Less than 6 Hours Per Day (ICD-10-PCS; principal; 2018-02-26)
DX: A41.9 Sepsis, unspecified organism (principal); N18.6 End stage renal disease; I12.0 Hypertensive chronic kidney disease with stage 5 chronic kidney disease or end stage renal disease; M86.8X7 Other osteomyelitis, ankle and foot; A30.9 Leprosy, unspecified; J45.909 Unspecified asthma, uncomplicated; Z88.0 Allergy status to penicillin; E11.22 Type 2 diabetes mellitus with diabetic chronic kidney disease; Z99.2 Dependence on renal dialysis; E78.5 Hyperlipidemia, unspecified; L03.032 Cellulitis of left toe; Z89.421 Acquired absence of other right toe(s); M06.9 Rheumatoid arthritis, unspecified; I73.9 Peripheral vascular disease, unspecified; M79.672 Pain in left foot; E11.51 Type 2 diabetes mellitus with diabetic peripheral angiopathy without gangrene; E11.69 Type 2 diabetes mellitus with other specified complication
CPT/HCPCS: 36415; 71045-TC-FY; 73718-LT; 75635-TC; 80048; 80053; 82565; 82803; 83605; 83735; 84100; 84484; 84520; 85025; 85027; 85610; 85651; 85730; 86704; 86706; 86708; 87040; 87070; 87186; 87205; 87340; 93005; 93010; 99284-25; G0480; J0885; J1644

== ENCOUNTER 2019-02-24 19:13 | Emergency (ER) | payer OTHER ==
--- NOTE | 2019-02-24 19:29 | PDOC ---
Rapid Medical Evaluation Time Seen by Provider: 02/24/19 19:26 Medical Evaluation: Allergies Allergy/AdvReac Type Severity Reaction Status Date / Time Penicillins Allergy "UNSURE-I Verified 02/23/18 16:58 WAS A CHILD" ciprofloxacin AdvReac Severe Verified 02/23/18 16:58 02/24/19 19:26 I have performed a brief in-person evaluation of this patient. The patient presents with a chief complaint of: left toe pain Pertinent physical exam findings: multiple toe amputations to left foot. Hematoma to 3rd digit stump. I have ordered the following: xray The patient will proceed to the ED for further evaluation. Discharge Disposition - Diagnosis Swelling of foot joint - Referrals - Patient Instructions - Post Discharge Activity
[2019-02-24 19:30] VITALS: BP 121/92; PULSE 92; TEMP 98; BMI 28.6
--- NOTE | 2019-02-24 20:06 | PDOC ---
History of Present Illness - General Chief Complaint: Injury Stated Complaint: SWOLLEN TOE Time Seen by Provider: 02/24/19 19:26 - History of Present Illness Initial Comments: 02/24/19 20:03 73-year-old female with a past medical history significant for leprosy presents for evaluation of a blister on her left stump fourth toe. This is been present for one day. She has no systemic symptoms. She is a kidney transplant patient. Past History - Past Medical History Allergies/Adverse Reactions: Allergies Allergy/AdvReac Type Severity Reaction Status Date / Time Penicillins Allergy "UNSURE-I Verified 02/24/19 19:29 WAS A CHILD" ciprofloxacin AdvReac Severe Verified 02/24/19 19:29 Home Medications: Ambulatory Orders Pantoprazole Sodium [Protonix -] 40 mg PO DAILY 12/14/15 Sevelamer Carbonate [Renvela -] 1,600 mg PO TID 01/27/16 Cinacalcet HCl [Sensipar] 30 mg PO HS 01/26/17 Folic Acid/Vit B Complex and C [Dialyvite 800 Tablet] 0.8 mg PO DAILY 02/23/18 Budesonide/Formeterol Fumarate [SYMBICORT 160/4.5mcg -] 1 puff PO BID 02/25/18 Benzethonium Chloride [Saline Wound Wash] 210 ml TP DAILY #1 cleanser 03/04/18 Gauze Bandage 1 each TP DAILY #1 box 03/04/18 Anemia: No Asthma: Yes CVA: No COPD: No CHF: No Dementia: No Diabetes: No Dialysis: Yes GI Disorders: No Disorders: No HTN: Yes Hypercholesterolemia: No Liver Disease: No Seizures: No Thyroid Disease: No - Surgical History Abdominal Surgery: No Appendectomy: No Cardiac Surgery: No Cholecystectomy: No Lung Surgery: No Neurologic Surgery: No Orthopedic Surgery: No - Immunization History Immunization Up to Date: Yes - Suicide/Smoking/Psychosocial Hx Smoking History: Never smoked Have you smoked in the past 12 months: No Hx Alcohol Use: No Drug/Substance Use Hx: No Substance Use Type: None Hx Substance Use Treatment: No Review of Systems - Review of Systems Integumentary: Yes: See HPI *Physical Exam - Vital Signs Last Vital Signs Temp Pulse Resp BP Pulse Ox 98.0 F 92 H 18 121/92 100 02/24/19 19:27 02/24/19 19:27 02/24/19 19:27 02/24/19 19:27 02/24/19 19:27 - Physical Exam Comments: 02/24/19 20:04 With the exception of the great toe the remainder of the digits are stumped or absent. There is a small blister at the tip of the stump of the third toe with normal surrounding skin color and temperature. The blisters closed. Medical Decision Making - Medical Decision Making 02/24/19 20:05 Nothing to do. I've advised the patient to keep the area clean and dry and leave the blister as it is and follow-up with her kidney doctor. *DC/Admit/Observation/Transfer Diagnosis at time of Disposition: Blister Diagnosis at time of Disposition: (Ruled Out): Swelling of foot joint - Discharge Dispostion Disposition: HOME Condition at time of disposition: Stable Decision to Admit order: No - Referrals Referrals: Shawn Bansal MD [Primary Care Provider] - - Patient Instructions Additional Instructions: Please keep the blister covered and protected. Do not pop the blister. Please follow-up with your security nurse in one to 2 days for further evaluation and treatment options. There is no indication of infection today. - Post Discharge Activity
== END 2019-02-24 20:15 | disposition home or self-care (01) ==
LOC: JERFT 19:13
DX: S90.425A Blister (nonthermal), left lesser toe(s), initial encounter (principal); X58.XXXA Exposure to other specified factors, initial encounter; Y93.89 Activity, other specified; Y92.018 Other place in single-family (private) house as the place of occurrence of the external cause; Y99.8 Other external cause status; Z89.422 Acquired absence of other left toe(s); B92 Sequelae of leprosy
CPT/HCPCS: 73630-TC-LT; 99281-25

== ENCOUNTER 2019-12-01 12:57 | Inpatient (IN) | payer OTHER ==
--- NOTE | 2019-12-01 13:00 | PDOC ---
Rapid Medical Evaluation Time Seen by Provider: 12/01/19 13:00 Medical Evaluation: Allergies Allergy/AdvReac Type Severity Reaction Status Date / Time Penicillins Allergy "UNSURE-I Verified 12/01/19 12:59 WAS A CHILD" ciprofloxacin AdvReac Severe Verified 12/01/19 12:59 12/01/19 13:01 I performed a brief in-person evaluation of this patient. 73-year-old female with ESRD s/p kidney transplant at [facility] 11/2018, NIDDM, leprosy , rheumatic fever, HLD, asthma, HTN, and b/l foot infections with amp of Rt 5th toe, Lt 4/5th toe presenting with ulcer to plantar aspect of left foot for 3 wks , concerned because of temp 99.1 at home. Pertinent physical exam findings: Alert, oriented, no distress. Afebrile but mildly tachycardic to 109 bpm. I have ordered the following: Basic labs, blood cultures Foot xray Patient to proceed to ED for further evaluation. Discharge Disposition - Diagnosis Foot ulcer, Immunocompromised - Referrals - Patient Instructions - Post Discharge Activity
[2019-12-01 14:30] LABS: BASO % 0.4 % (0-2.0); EOS % 0.1 % (0-4.5); HEMOGLOBIN 10.4 GM/dL (10.7-15.3); LYMPH % 3.4 % (8-40); MCH 30.7 pg (25.7-33.7); MCHC 32.6 g/dl (32.0-36.0); MEAN CELL VOLUME 94.3 fl (80-96); MONO % 5.7 % (3.8-10.2); NEUT % 90.4 % (42.8-82.8); PLATELET COUNT 325 K/MM3 (134-434); WHITE BLOOD COUNT 15.3 K/mm3 (4.0-10.0)
[2019-12-01 14:49] LABS: ALBUMIN 3.4 g/dl (3.4-5.0); BILIRUBIN,TOTAL 0.5 mg/dL (0.2-1); CALCIUM 9.3 mg/dL (8.5-10.1); CREATININE 1.4 mg/dL (0.55-1.3); POTASSIUM 4.6 mmol/L (3.5-5.1)
[2019-12-01] MEDS ORDERED: VANCOMYCIN 1,000 MG in DEXTROSE 5%-WATER - 250 ML IVPB ONE (14:50)
--- NOTE | 2019-12-01 15:08 | PDOC ---
History of Present Illness - General Chief Complaint: Wound Stated Complaint: LT FOOT WOUND Time Seen by Provider: 12/01/19 13:00 History Source: Patient, Family Exam Limitations: No Limitations - History of Present Illness Initial Comments: 73F PMH ESRD s/p R Renal Transplant (11/2018, [facility]; prograft, myfortic), NIDDM , Asthma sent in by jewel supervisor for foot ulcer. left foot ulcer present for approximately 1 month now. Pt endorses mild swelling of the foot but no pain. There is no pain radiating up the leg or edema or streaking of the leg. Pt states she had a temperature of 99F this AM but denies f/c. Denies joint pain. Denies cp/sob, n/v, abd pain, dysuria, diarrhea. PCP - Dr Shawn Bansal Renal - Dr Chin Cardiology - Dr. Brewster Podiatry - Dr. Kurt Conway Allergies to PCN (childhood, unknown), ciprofloxacin Denies tobacco, etoh, and drugs Past History - Past Medical History Allergies/Adverse Reactions: Allergies Allergy/AdvReac Type Severity Reaction Status Date / Time Penicillins Allergy "UNSURE-I Verified 12/01/19 12:59 WAS A CHILD" ciprofloxacin AdvReac Severe Verified 12/01/19 12:59 Home Medications: Ambulatory Orders Pantoprazole Sodium [Protonix -] 40 mg PO DAILY 12/14/15 Cinacalcet HCl [Sensipar] 30 mg PO HS 01/26/17 Budesonide/Formeterol Fumarate [SYMBICORT 160/4.5mcg -] 1 puff PO BID 02/25/18 Aspirin 81 mg PO DAILY 12/01/19 Atovaquone 10 ml PO DAILY 12/01/19 Gentamicin Sulfate 1 appful TD BID 12/01/19 Mycophenolate Sodium [Myfortic] 360 mg PO ASDIR 12/01/19 Nifedipine ER [Procardia Xl -] 30 mg PO DAILY 12/01/19 Pravastatin Sodium 10 mg PO HS 12/01/19 Prednisone 5 mg PO DAILY 12/01/19 Sitagliptin Phosphate [Januvia] 50 mg PO DAILY 12/01/19 Tacrolimus 5 mg PO BID 12/01/19 Atovaquone [Mepron Oral Solution -] 1,500 mg PO DAILY 12/03/19 Anemia: No Asthma: Yes CVA: No COPD: No CHF: No Dementia: No Diabetes: Yes (DUE TO STEROIDS) Dialysis: Yes (NO LONGER ON) GI Disorders: No Disorders: No HTN: Yes Hypercholesterolemia: No Liver Disease: No Seizures: No Thyroid Disease: No - Surgical History Abdominal Surgery: Yes (renal transplant 2019) Appendectomy: No Cardiac Surgery: No Cholecystectomy: No Lung Surgery: No Neurologic Surgery: No Orthopedic Surgery: No - Immunization History Immunization Up to Date: Yes - Psycho Social/Smoking Cessation Hx Smoking History: Never smoked Have you smoked in the past 12 months: No Hx Alcohol Use: No Drug/Substance Use Hx: No Substance Use Type: None Hx Substance Use Treatment: No Review of Systems - Review of Systems Able to Perform ROS?: Yes Comments:: CONSTITUTIONAL: Denies F / C HEENT: Denies sore throat, rhinorrhea RESP: Denies SOB, cough CARD: Denies chest pain GI: Denies N / V / D, abdominal pain, bloody stool, inability to tolerate PO : Denies dysuria SKIN: Endorses ulcer NEURO: Denies numbness, tingling, weakness MSK: Denies foot, joint pain Is the patient limited Romanian proficient: No *Physical Exam - Vital Signs Last Vital Signs Temp Pulse Resp BP Pulse Ox 97.8 F 109 H 18 122/74 100 12/01/19 12:59 12/01/19 12:59 12/01/19 12:59 12/01/19 12:59 12/01/19 12:59 - Physical Exam GEN: Well appearing, NAD, comfortable. AAOx3. HEENT: NC/AT. Normal voice. Supple neck w/ FROM. CV: S1/S2, RRR, no m/r/g LUNG: CTAB, no wheezes, crackles, rales, rhonchi. GI: Soft, ndnt, +BS, no guarding, no rebound. EXTREMITIES: left foot is s/p multiple digital amputations. There is a small approximately 2-3mm ulcer of the base of the foot (medial-lateral, ball), ulcer has minimal drainage (?purulent?). No tenderness of the area. Pt has deformities of her fingers and toes that appear chronic in nature. SKIN: Warm, no streaking, erythema. PSYCH: Normal mood and affect. NEURO: Moving all extremities. Ambulates w/ normal gait. Sensation intact. ED Treatment Course - LABORATORY CBC & Chemistry Diagram: 12/08/19 08:00 12/08/19 08:00 - ADDITIONAL ORDERS Additional order review: Laboratory Results 12/01/19 14:00 Sodium 137 Potassium 4.6 Chloride 107 Carbon Dioxide 22 Anion Gap 8 BUN 25.0 H Creatinine 1.4 H Est GFR (CKD-EPI)AfAm 43.70 Est GFR (CKD-EPI)NonAf 37.71 Random Glucose 184 H Calcium 9.3 Total Bilirubin 0.5 AST 8 L ALT 16 Alkaline Phosphatase 94 Total Protein 7.0 Albumin 3.4 12/01/19 14:00 RBC 3.40 L MCV 94.3 MCHC 32.6 RDW 13.0 D MPV 8.0 Neutrophils % 90.4 H Lymphocytes % 3.4 L D Monocytes % 5.7 Eosinophils % 0.1 D Basophils % 0.4 Medical Decision Making - Medical Decision Making 12/01/19 14:53 73F PMH ESRD s/p R Renal Transplant (11/2018, [facility]; prograft, myalexic) sent in by jewel supervisor for admission and evaluation of the foot ulcer. 2-3 mm ulcer with minimal drainage (?purulent). Nontender exam. DDx - OM, cellulitis - CBC, CMP, ESR, CRP - CX - ID c/s - Podiatry c/s - admit d/w Dr. Vernon - admitted d/w Dr. Mason regarding allergies and appropriate coverage - he will eval pt ADMITTED Discharge - Discharge Information Problems reviewed: Yes Clinical Impression/Diagnosis: Immunocompromised Foot ulcer Qualifiers: Laterality: unspecified laterality Non-pressure ulcer stage: unspecified non- pressure ulcer stage Qualified Code(s): L97.509 - Non-pressure chronic ulcer of other part of unspecified foot with unspecified severity - Admission Yes - Follow up/Referral - Patient Discharge Instructions - Post Discharge Activity
[2019-12-01] MEDS ORDERED: VANCOMYCIN 1 GRAM (PRE-DOCKED) 1,000 MG/250 ML BAG IVPB ONE (15:31)
--- NOTE | 2019-12-01 16:43 | PDOC ---
Attending Attestation - Resident Resident Name: Glen Cox - ED Attending Attestation I have performed the following: I have examined & evaluated the patient, The case was reviewed & discussed with the resident, I agree w/resident's findings & plan, Exceptions are as noted - HPI HPI: 12/05/19 14:51 Agree with residents PE - Physicial Exam PE: 12/05/19 14:52 Agree with residents PE - Medical Decision Making 12/01/19 16:43 73 years old kidney transplant immunocompromised sent for small foot ulcer for antibiotics ID consultation MRI and podiatry consultation We will admit to medicine for further evaluation
[2019-12-01] MEDS ORDERED: MYCOPHENOLATE SODIUM 360 MG PO SCH (21:30)
[2019-12-01] MEDS: ATORVASTATIN CA 10 MG TABLET (FP) PO SCH (22:46)
[2019-12-01] MEDS: HEPARIN NA (PORCINE) 5,000 UNITS/ML 1ML VIAL SQ SCH (22:46)
[2019-12-01] MEDS: INSULIN SLIDING SCALE (NOVOLOG) 1 VIAL SQ SCH (22:47)
[2019-12-01] MEDS: BUDESONIDE/FORMETEROL FUMARATE 160/4.5 mcg INHALER IH SCH (22:47)
[2019-12-01] MEDS: TACROLIMUS ANHYDROUS 5 MG CAPSULE PO SCH (22:48)
[2019-12-01] MEDS: CINACALCET HCL 30 MG TAB (FP) PO SCH (22:49)
[2019-12-02] MEDS ORDERED: VANCOMYCIN 1 GRAM (PRE-DOCKED) 1,000 MG/250 ML BAG IVPB ONE (03:00)
[2019-12-02] MEDS: sitaGLIPtin PHOSPHATE 50 MG TABLET PO SCH (06:19)
[2019-12-02] MEDS: INSULIN SLIDING SCALE (NOVOLOG) 1 VIAL SQ SCH ×4 (06:20→21:27)
[2019-12-02] MEDS ORDERED: PT OWN MED DRAWER 7, Y5N ONE (09:15)
[2019-12-02 09:19] LABS: BASO % 0.5 % (0-2.0); EOS % 0.6 % (0-4.5); HEMATOCRIT 31.8 % (32.4-45.2); HEMOGLOBIN 10.4 GM/dL (10.7-15.3); LYMPH % 5.8 % (8-40); MCH 30.9 pg (25.7-33.7); MCHC 32.7 g/dl (32.0-36.0); MEAN CELL VOLUME 94.7 fl (80-96); MONO % 8.7 % (3.8-10.2); NEUT % 84.4 % (42.8-82.8); PLATELET COUNT 304 K/MM3 (134-434); RBC 3.36 M/mm3 (3.60-5.2); RDW 13.1 % (11.6-15.6); WHITE BLOOD COUNT 10.5 K/mm3 (4.0-10.0)
[2019-12-02] MEDS: ASPIRIN 81 MG CHEWABLE TABLETS PO SCH (09:26)
[2019-12-02] MEDS: PANTOPRAZOLE 40 MG TABLET PO SCH (09:26)
[2019-12-02] MEDS: HEPARIN NA (PORCINE) 5,000 UNITS/ML 1ML VIAL SQ SCH ×2 (09:41→21:28)
[2019-12-02] MEDS: predniSONE 5 MG TABLET (UD) PO SCH (09:41)
[2019-12-02] MEDS: BUDESONIDE/FORMETEROL FUMARATE 160/4.5 mcg INHALER IH SCH ×2 (09:43→21:28)
[2019-12-02] MEDS: TACROLIMUS ANHYDROUS 5 MG CAPSULE PO SCH ×2 (09:43→21:26)
[2019-12-02 09:56] LABS: ALBUMIN 3.1 g/dl (3.4-5.0); BILIRUBIN,TOTAL 0.6 mg/dL (0.2-1); BLOOD UREA NITROGEN 20.4 mg/dL (7-18); CALCIUM 9.4 mg/dL (8.5-10.1); CREATININE 1.4 mg/dL (0.55-1.3); POTASSIUM 4.1 mmol/L (3.5-5.1); TOT PROT 6.5 g/dl (6.4-8.2)
[2019-12-02] MEDS ORDERED: NIFEdipine E.R. 30 MG TABLET PO SCH ×2 (10:00→22:00)
--- NOTE | 2019-12-02 12:09 | HP ---
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, secondary to ANCA vasculitis ) ...: No Heme/Onc: Yes: Anemia Infectious Disease: Yes: Other (leprosy at age 18 treated for four years) Musculoskeletal: Yes: Other (digital amp) Dermatology: Yes: Other (leprosy related scarring) - Past Surgical History Past Surgical History: Yes: None - Smoking History Smoking history: Never smoked Have you smoked in the past 12 months: No - Alcohol/Substance Use Hx Alcohol Use: No History of Substance Use: reports: None - Social History ADL: Independent History of Recent Travel: No Home Medications - Allergies Allergies/Adverse Reactions: Allergies Allergy/AdvReac Type Severity Reaction Status Date / Time Penicillins Allergy "UNSURE-I Verified 12/01/19 12:59 WAS A CHILD" ciprofloxacin AdvReac Severe Verified 12/01/19 12:59 - Home Medications Home Medications: Ambulatory Orders Pantoprazole Sodium [Protonix -] 40 mg PO DAILY 12/14/15 Cinacalcet HCl [Sensipar] 30 mg PO HS 01/26/17 Budesonide/Formeterol Fumarate [SYMBICORT 160/4.5mcg -] 1 puff PO BID 02/25/18 Aspirin 81 mg PO DAILY 12/01/19 Atovaquone 10 ml PO DAILY 12/01/19 Gentamicin Sulfate 1 appful TD BID 12/01/19 Mycophenolate Sodium [Myfortic] 360 mg PO ASDIR 12/01/19 Nifedipine ER [Procardia Xl -] 30 mg PO DAILY 12/01/19 Pravastatin Sodium 10 mg PO HS 12/01/19 Prednisone 5 mg PO DAILY 12/01/19 Sitagliptin Phosphate [Januvia] 50 mg PO DAILY 12/01/19 Tacrolimus 5 mg PO BID 12/01/19 Physical Examination Vital Signs: Vital Signs Temperature 98.5 F 12/02/19 07:43 Pulse Rate 94 H 12/02/19 07:43 Respiratory Rate 18 12/02/19 07:43 Blood Pressure 146/79 12/02/19 07:43 O2 Sat by Pulse Oximetry (%) 100 12/02/19 04:01 Labs: CBC, BMP 12/02/19 08:54 12/02/19 08:54
--- NOTE | 2019-12-02 12:35 | CON.ID ---
Consult Consult Specialty:: infectious diseases Referred by:: Reason for Consultation:: foot ulcer - History of Present Illness Chief Complaint: non healing ulcer of the foot History of Present Illness: 73F PMH ESRD s/p R Renal Transplant (11/2018, [facility]; [facility], [facility]), NIDDM , Asthma sent in by thermoplastic technician for foot ulcer. left foot ulcer present for approximately 1 month now. Pt endorses mild swelling of the foot but no pain. There is no pain radiating up the leg or edema or streaking of the leg. Pt states she had a temperature of 99F . Denies joint pain. Denies cp/sob, n/v, abd pain, dysuria, diarrhea. 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) Musculoskeletal: Yes: Other (digital amp) Dermatology: Yes: Other (leprosy related scarring) - Past Surgical History Past Surgical History: Yes: None - Alcohol/Substance Use Hx Alcohol Use: No History of Substance Use: reports: None - Smoking History Smoking history: Never smoked Have you smoked in the past 12 months: No - Social History Usual Living Arrangement: With Child ADL: Independent History of Recent Travel: No Home Medications - Allergies Allergies/Adverse Reactions: Allergies Allergy/AdvReac Type Severity Reaction Status Date / Time Penicillins Allergy "UNSURE-I Verified 12/01/19 12:59 WAS A CHILD" ciprofloxacin AdvReac Severe Verified 12/01/19 12:59 - Home Medications Home Medications: Ambulatory Orders Pantoprazole Sodium [Protonix -] 40 mg PO DAILY 12/14/15 Cinacalcet HCl [Sensipar] 30 mg PO HS 01/26/17 Budesonide/Formeterol Fumarate [SYMBICORT 160/4.5mcg -] 1 puff PO BID 02/25/18 Aspirin 81 mg PO DAILY 12/01/19 Atovaquone 10 ml PO DAILY 12/01/19 Gentamicin Sulfate 1 appful TD BID 12/01/19 Mycophenolate Sodium [Myfortic] 360 mg PO ASDIR 12/01/19 Nifedipine ER [Procardia Xl -] 30 mg PO DAILY 12/01/19 Pravastatin Sodium 10 mg PO HS 12/01/19 Prednisone 5 mg PO DAILY 12/01/19 Sitagliptin Phosphate [Januvia] 50 mg PO DAILY 12/01/19 Tacrolimus 5 mg PO BID 12/01/19 Review of Systems - Review of Systems Constitutional: reports: No Symptoms Eyes: reports: No Symptoms HENT: reports: No Symptoms Neck: reports: No Symptoms Cardiovascular: reports: No Symptoms Respiratory: reports: No Symptoms Gastrointestinal: reports: No Symptoms Musculoskeletal: reports: Other Integumentary: reports: Wound Neurological: reports: No Symptoms Endocrine: reports: No Symptoms Hematology/Lymphatic: reports: No Symptoms Psychiatric: reports: No Symptoms Physical Exam Vital Signs: Vital Signs Temperature 98.5 F 12/02/19 07:43 Pulse Rate 94 H 12/02/19 07:43 Respiratory Rate 18 12/02/19 07:43 Blood Pressure 146/79 12/02/19 07:43 O2 Sat by Pulse Oximetry (%) 100 12/02/19 04:01 Constitutional: Yes: Well Nourished, Calm, Mild Distress Cardiovascular: Yes: Regular Rate and Rhythm Respiratory: Yes: Regular, CTA Bilaterally Gastrointestinal: Yes: Normal Bowel Sounds, Soft Musculoskeletal: Yes: WNL Extremities: Yes: Erythema (of the foot), Other Wound/Incision: Yes: Dressing Removed, Draining Neurological: Yes: Alert, Oriented Psychiatric: Yes: Alert, Oriented Labs: CBC, BMP 12/02/19 08:54 12/02/19 08:54 Imaging - Results X-ray: Report Reviewed, Image Reviewed Assessment/Plan this patient with kidney transplant coming in with drainage from the foot wound i think patient has osteo patient has received vanco will start ceftriaxone from tomorrow with vanco
--- NOTE | 2019-12-02 12:39 | PN ---
Progress Note, Physician History of Present Illness: wound evaluated wound goes deep pus expressed from the wound send for culture - Current Medication List Current Medications: Active Medications Aspirin (Asa -) 81 mg PO DAILY [facility] Last Admin: 12/02/19 09:26 Dose: 81 mg Atorvastatin Calcium (Lipitor -) 10 mg PO HS [facility] Last Admin: 12/01/19 22:46 Dose: Not Given Budesonide/Formoterol Fumarate (Symbicort 160/4.5mcg -) 1 puff IH BID [facility] Last Admin: 12/02/19 09:43 Dose: 1 puff Cinacalcet (Sensipar -) 30 mg PO HS [facility] Last Admin: 12/01/19 22:49 Dose: Not Given Heparin Sodium (Porcine) (Heparin -) 5,000 unit SQ BID [facility] Last Admin: 12/02/19 09:41 Dose: Not Given Vancomycin HCl (Vancomycin 1 Gm Premix -) 1 gm in 200 mls @ 133.333 mls/hr IVPB Q12H [facility] Insulin Aspart (Novolog Vial Sliding Scale -) 1 vial SQ ACHS [facility]; Protocol Last Admin: 12/02/19 12:05 Dose: Not Given Nifedipine (Procardia Xl -) 30 mg PO DAILY [facility] Last Admin: 12/02/19 09:44 Dose: Not Given Non-Formulary Medication (Mycophenolate Sodium [Myfortic]) 360 mg PO ASDIR [facility] Pantoprazole Sodium (Protonix -) 40 mg PO DAILY [facility] Last Admin: 12/02/19 09:26 Dose: 40 mg Prednisone (Deltasone -) 5 mg PO DAILY [facility] Last Admin: 12/02/19 09:41 Dose: Not Given Sitagliptin Phosphate (Januvia -) 50 mg PO DAILY@0700 [facility] Last Admin: 12/02/19 06:19 Dose: 50 mg Tacrolimus (Prograf) 5 mg PO BID [facility] Last Admin: 12/02/19 09:43 Dose: Not Given - Objective Vital Signs: Vital Signs Temperature 98.5 F 12/02/19 07:43 Pulse Rate 94 H 12/02/19 07:43 Respiratory Rate 18 12/02/19 07:43 Blood Pressure 146/79 12/02/19 07:43 O2 Sat by Pulse Oximetry (%) 100 12/02/19 04:01 Constitutional: Yes: No Distress, Calm Cardiovascular: Yes: S1, S2 Respiratory: Yes: Regular, CTA Bilaterally Gastrointestinal: Yes: Normal Bowel Sounds, Soft Musculoskeletal: Yes: WNL Extremities: Yes: Other Wound/Incision: Yes: Draining (pus drained from the foot cx ordered) Neurological: Yes: Alert, Oriented Psychiatric: Yes: Alert, Oriented Labs: CBC, BMP 12/02/19 08:54 12/02/19 08:54 Assessment/Plan pus expressed from the foot send for cx await for cx report patient going for mri will see the findings
[2019-12-02] MEDS: VANCOMYCIN 1 GM PREMIX - 1 GM/200 ML BAG IVPB SCH (13:37)
[2019-12-02] MEDS ORDERED: DEXTROSE 5%-WATER - 50 ML IVPB ONE (15:27)
[2019-12-02] MEDS ORDERED: cefTRIAXone SODIUM 1 GM VIAL ONE (15:27)
[2019-12-02] MEDS: CEFTRIAXONE 1 GM in DEXTROSE 5%-WATER - 50 ML IVPB SCH (15:37)
--- NOTE | 2019-12-02 19:37 | CONSULT ---
Consult Consult Specialty:: Podiatric surgery Reason for Consultation:: draining wound left foot - History of Present Illness History of Present Illness: pt of dr garsia. referred to me for tx of infection and possible surgical intervention. 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) Musculoskeletal: Yes: Other (digital amp) Dermatology: Yes: Other (leprosy related scarring) - Past Surgical History Past Surgical History: Yes: None - Alcohol/Substance Use Hx Alcohol Use: No History of Substance Use: reports: None - Smoking History Smoking history: Never smoked Have you smoked in the past 12 months: No - Social History Usual Living Arrangement: With Child ADL: Independent History of Recent Travel: No Home Medications - Allergies Allergies/Adverse Reactions: Allergies Allergy/AdvReac Type Severity Reaction Status Date / Time Penicillins Allergy "UNSURE-I Verified 12/01/19 12:59 WAS A CHILD" ciprofloxacin AdvReac Severe Verified 12/01/19 12:59 - Home Medications Home Medications: Ambulatory Orders Pantoprazole Sodium [Protonix -] 40 mg PO DAILY 12/14/15 Cinacalcet HCl [Sensipar] 30 mg PO HS 01/26/17 Budesonide/Formeterol Fumarate [SYMBICORT 160/4.5mcg -] 1 puff PO BID 02/25/18 Aspirin 81 mg PO DAILY 12/01/19 Atovaquone 10 ml PO DAILY 12/01/19 Gentamicin Sulfate 1 appful TD BID 12/01/19 Mycophenolate Sodium [Myfortic] 360 mg PO ASDIR 12/01/19 Nifedipine ER [Procardia Xl -] 30 mg PO DAILY 12/01/19 Pravastatin Sodium 10 mg PO HS 12/01/19 Prednisone 5 mg PO DAILY 12/01/19 Sitagliptin Phosphate [Januvia] 50 mg PO DAILY 12/01/19 Tacrolimus 5 mg PO BID 12/01/19 Physical Exam Vital Signs: Vital Signs Temperature 99.0 F 12/02/19 14:50 Pulse Rate 95 H 12/02/19 14:50 Respiratory Rate 20 01/21/20 14:50 Blood Pressure 133/59 L 12/02/19 14:50 O2 Sat by Pulse Oximetry (%) 100 12/02/19 12:30 Extremities: Yes: Other (+draining wound plantar left foot, -mal odor, abscess? , om?) Labs: CBC, BMP 12/02/19 08:54 12/02/19 08:54 Imaging - Results X-ray: Image Reviewed (+exostosis 3rd toe left,) Assessment/Plan exostosis abscess om? Discussed with patient and daughter Eryn. Possible I&D with debridement of bone and soft tissue. Awaiting MRI. Awaiting vascular eval. Will follow. Betadine dressing left foot.
[2019-12-02] MEDS: ATORVASTATIN CA 10 MG TABLET (FP) PO SCH (21:26)
[2019-12-02] MEDS: CINACALCET HCL 30 MG TAB (FP) PO SCH ×2 (21:27→21:32)
[2019-12-02] MEDS: NIFEdipine E.R. 30 MG TABLET PO SCH (22:32)
[2019-12-03] MEDS: VANCOMYCIN 1 GRAM (PRE-DOCKED) 1,000 MG/250 ML BAG IVPB SCH (02:17)
[2019-12-03] MEDS: INSULIN SLIDING SCALE (NOVOLOG) 1 VIAL SQ SCH ×4 (06:48→22:06)
[2019-12-03] MEDS: sitaGLIPtin PHOSPHATE 50 MG TABLET PO SCH (06:49)
[2019-12-03] MEDS ORDERED: PT OWN MED DRAWER 7, Y5N ONE (09:30)
[2019-12-03] MEDS ORDERED: cefTRIAXone SODIUM 1 GM VIAL ONE (09:30)
[2019-12-03] MEDS ORDERED: DEXTROSE 5%-WATER - 50 ML IVPB ONE (09:30)
[2019-12-03] MEDS: CEFTRIAXONE 1 GM in DEXTROSE 5%-WATER - 50 ML IVPB SCH (09:52)
[2019-12-03] MEDS: ASPIRIN 81 MG CHEWABLE TABLETS PO SCH (09:54)
[2019-12-03] MEDS: NIFEdipine E.R. 30 MG TABLET PO SCH ×2 (09:54→22:02)
[2019-12-03] MEDS: PANTOPRAZOLE 40 MG TABLET PO SCH (09:54)
[2019-12-03] MEDS: HEPARIN NA (PORCINE) 5,000 UNITS/ML 1ML VIAL SQ SCH ×2 (09:54→22:00)
[2019-12-03] MEDS: predniSONE 5 MG TABLET (UD) PO SCH (09:55)
[2019-12-03] MEDS: TACROLIMUS ANHYDROUS 5 MG CAPSULE PO SCH ×2 (09:55→22:02)
[2019-12-03] MEDS: BUDESONIDE/FORMETEROL FUMARATE 160/4.5 mcg INHALER IH SCH ×2 (09:55→22:03)
--- NOTE | 2019-12-03 11:06 | PN ---
Progress Note, Physician History of Present Illness: stable 'no new issues wound growing staph awaiting for mri result - Current Medication List Current Medications: Active Medications Aspirin (Asa -) 81 mg PO DAILY [facility] Last Admin: 12/03/19 09:54 Dose: 81 mg Atorvastatin Calcium (Lipitor -) 10 mg PO HS [facility] Last Admin: 12/02/19 21:26 Dose: 10 mg Budesonide/Formoterol Fumarate (Symbicort 160/4.5mcg -) 1 puff IH BID [facility] Last Admin: 12/03/19 09:55 Dose: 1 puff Heparin Sodium (Porcine) (Heparin -) 5,000 unit SQ BID [facility] Last Admin: 12/03/19 09:54 Dose: Not Given Ceftriaxone Sodium 1 gm/ (Dextrose) 50 mls @ 100 mls/hr IVPB DAILY [facility]; Protocol Last Admin: 12/03/19 09:52 Dose: 100 mls/hr Vancomycin HCl (Vancomycin (Pre-Docked)) 1,000 mg in 250 mls @ 200 mls/hr IVPB Q24H [facility]; Protocol Last Admin: 12/03/19 02:17 Dose: 200 mls/hr Insulin Aspart (Novolog Vial Sliding Scale -) 1 vial SQ ACHS [facility]; Protocol Last Admin: 12/03/19 06:48 Dose: Not Given Nifedipine (Procardia Xl -) 30 mg PO BID [facility] Last Admin: 12/03/19 09:54 Dose: 30 mg Non-Formulary Medication (Mycophenolate Sodium [Myfortic]) 360 mg PO ASDIR [facility] Pantoprazole Sodium (Protonix -) 40 mg PO DAILY [facility] Last Admin: 12/03/19 09:54 Dose: 40 mg Prednisone (Deltasone -) 5 mg PO DAILY [facility] Last Admin: 12/03/19 09:55 Dose: 5 mg Sitagliptin Phosphate (Januvia -) 50 mg PO DAILY@0700 [facility] Last Admin: 12/03/19 06:49 Dose: 50 mg Tacrolimus (Prograf) 5 mg PO BID [facility] Last Admin: 12/03/19 09:55 Dose: 5 mg - Objective Vital Signs: Vital Signs Temperature 98.2 F 12/03/19 06:00 Pulse Rate 97 H 12/03/19 06:00 Respiratory Rate 18 12/03/19 06:00 Blood Pressure 145/66 12/03/19 06:00 O2 Sat by Pulse Oximetry (%) 100 12/02/19 21:00 Constitutional: Yes: No Distress, Calm Cardiovascular: Yes: S1, S2 Respiratory: Yes: Regular, CTA Bilaterally Gastrointestinal: Yes: Normal Bowel Sounds, Soft Musculoskeletal: Yes: WNL Extremities: Yes: Other Neurological: Yes: Alert, Oriented Psychiatric: Yes: Alert, Oriented Labs: CBC, BMP 12/02/19 08:54 12/02/19 08:54 Assessment/Plan await for cx report await for mri conitnue abx podiatry on case
--- NOTE | 2019-12-03 12:04 | PN ---
Progress Note, Physician History of Present Illness: pt of dr garsia. referred to me for tx of infection and possible surgical intervention. - Current Medication List Current Medications: Active Medications Aspirin (Asa -) 81 mg PO DAILY [facility] Last Admin: 12/03/19 09:54 Dose: 81 mg Atorvastatin Calcium (Lipitor -) 10 mg PO HS [facility] Last Admin: 12/02/19 21:26 Dose: 10 mg Budesonide/Formoterol Fumarate (Symbicort 160/4.5mcg -) 1 puff IH BID [facility] Last Admin: 12/03/19 09:55 Dose: 1 puff Heparin Sodium (Porcine) (Heparin -) 5,000 unit SQ BID [facility] Last Admin: 12/03/19 09:54 Dose: Not Given Ceftriaxone Sodium 1 gm/ (Dextrose) 50 mls @ 100 mls/hr IVPB DAILY [facility]; Protocol Last Admin: 12/03/19 09:52 Dose: 100 mls/hr Vancomycin HCl (Vancomycin (Pre-Docked)) 1,000 mg in 250 mls @ 200 mls/hr IVPB Q24H [facility]; Protocol Last Admin: 12/03/19 02:17 Dose: 200 mls/hr Insulin Aspart (Novolog Vial Sliding Scale -) 1 vial SQ ACHS [facility]; Protocol Last Admin: 12/03/19 11:16 Dose: Not Given Nifedipine (Procardia Xl -) 30 mg PO BID [facility] Last Admin: 12/03/19 09:54 Dose: 30 mg Non-Formulary Medication (Mycophenolate Sodium [Myfortic]) 360 mg PO ASDIR [facility] Pantoprazole Sodium (Protonix -) 40 mg PO DAILY [facility] Last Admin: 12/03/19 09:54 Dose: 40 mg Prednisone (Deltasone -) 5 mg PO DAILY [facility] Last Admin: 12/03/19 09:55 Dose: 5 mg Sitagliptin Phosphate (Januvia -) 50 mg PO DAILY@0700 [facility] Last Admin: 12/03/19 06:49 Dose: 50 mg Tacrolimus (Prograf) 5 mg PO BID [facility] Last Admin: 12/03/19 09:55 Dose: 5 mg - Objective Vital Signs: Vital Signs Temperature 98.2 F 12/03/19 06:00 Pulse Rate 97 H 12/03/19 06:00 Respiratory Rate 18 12/03/19 06:00 Blood Pressure 145/66 12/03/19 06:00 O2 Sat by Pulse Oximetry (%) 100 12/02/19 21:00 Extremities: Yes: Other (+draining wound left foot with OM 3rd toe stump,) Labs: CBC, BMP 12/02/19 08:54 12/02/19 08:54 Assessment/Plan exostosis abscess om I&D with debridement of bone and soft tissue tomorrow. Please maximize for OR. Awaiting vascular eval. Will follow. Betadine dressing left foot. Pt to be consented for I&D and debridement of bone and soft tissue left foot. NPO after midnight. INR ordered.
[2019-12-03] MEDS: ATORVASTATIN CA 10 MG TABLET (FP) PO SCH (22:01)
--- NOTE | 2019-12-03 23:42 | PN ---
Progress Note, Physician History of Present Illness: No new complaints - Current Medication List Current Medications: Active Medications Aspirin (Asa -) 81 mg PO DAILY [facility] Last Admin: 12/03/19 09:54 Dose: 81 mg Atorvastatin Calcium (Lipitor -) 10 mg PO HS [facility] Last Admin: 12/03/19 22:01 Dose: 10 mg Budesonide/Formoterol Fumarate (Symbicort 160/4.5mcg -) 1 puff IH BID [facility] Last Admin: 12/03/19 22:03 Dose: 1 puff Heparin Sodium (Porcine) (Heparin -) 5,000 unit SQ BID [facility] Last Admin: 12/03/19 22:00 Dose: Not Given Ceftriaxone Sodium 1 gm/ (Dextrose) 50 mls @ 100 mls/hr IVPB DAILY [facility]; Protocol Last Admin: 12/03/19 09:52 Dose: 100 mls/hr Vancomycin HCl (Vancomycin (Pre-Docked)) 1,000 mg in 250 mls @ 200 mls/hr IVPB Q24H [facility]; Protocol Last Admin: 12/03/19 02:17 Dose: 200 mls/hr Insulin Aspart (Novolog Vial Sliding Scale -) 1 vial SQ ACHS [facility]; Protocol Last Admin: 12/03/19 22:06 Dose: Not Given Nifedipine (Procardia Xl -) 30 mg PO BID [facility] Last Admin: 12/03/19 22:02 Dose: 30 mg Non-Formulary Medication (Mycophenolate Sodium [Myfortic]) 360 mg PO ASDIR [facility] Pantoprazole Sodium (Protonix -) 40 mg PO DAILY [facility] Last Admin: 12/03/19 09:54 Dose: 40 mg Prednisone (Deltasone -) 5 mg PO DAILY [facility] Last Admin: 12/03/19 09:55 Dose: 5 mg Sitagliptin Phosphate (Januvia -) 50 mg PO DAILY@0700 [facility] Last Admin: 12/03/19 06:49 Dose: 50 mg Tacrolimus (Prograf) 5 mg PO BID [facility] Last Admin: 12/03/19 22:02 Dose: 5 mg - Objective Vital Signs: Vital Signs Temperature 98.8 F 12/03/19 22:00 Pulse Rate 92 H 12/03/19 22:00 Respiratory Rate 20 12/03/19 22:00 Blood Pressure 148/73 12/03/19 22:00 O2 Sat by Pulse Oximetry (%) 100 12/03/19 09:00 Neck: Yes: WNL, Supple Cardiovascular: Yes: WNL, Regular Rate and Rhythm Respiratory: Yes: WNL, Regular, CTA Bilaterally Gastrointestinal: Yes: WNL, Normal Bowel Sounds, Soft Extremities: Yes: WNL, Other (Lt foot in dressing) Edema: No Labs: CBC, BMP 12/02/19 08:54 12/02/19 08:54 Problem List - Problems (1) Osteomyelitis Assessment/Plan: Cont IV vanco/ceftriaxone MRI showed osteo of 3rd toe No medical contraindication for surgery at this time Code(s): M86.9 - OSTEOMYELITIS, UNSPECIFIED (2) Kidney transplant recipient Assessment/Plan: Renal consult Code(s): Z94.0 - KIDNEY TRANSPLANT STATUS (3) Asthma Assessment/Plan: Cont inhalers Code(s): J45.909 - UNSPECIFIED ASTHMA, UNCOMPLICATED Qualifiers: Asthma severity: mild intermittent (4) Diabetes Assessment/Plan: Cont januvia Cont sliding scale w/ coverage Code(s): E11.9 - TYPE 2 DIABETES MELLITUS WITHOUT COMPLICATIONS Qualifiers: Diabetes mellitus complication status: with diabetic arthropathy (5) Hyperlipidemia Assessment/Plan: Cont lipitor Code(s): E78.5 - HYPERLIPIDEMIA, UNSPECIFIED (6) Rheumatoid arthritis Code(s): M06.9 - RHEUMATOID ARTHRITIS, UNSPECIFIED
[2019-12-04] MEDS: VANCOMYCIN 1 GRAM (PRE-DOCKED) 1,000 MG/250 ML BAG IVPB SCH (03:44)
[2019-12-04] MEDS: INSULIN SLIDING SCALE (NOVOLOG) 1 VIAL SQ SCH ×4 (06:15→22:16)
[2019-12-04] MEDS: sitaGLIPtin PHOSPHATE 50 MG TABLET PO SCH (07:50)
[2019-12-04 08:50] LABS: BASO % 0.3 % (0-2.0); EOS % 0.9 % (0-4.5); HEMATOCRIT 32.9 % (32.4-45.2); HEMOGLOBIN 10.6 GM/dL (10.7-15.3); LYMPH % 6.3 % (8-40); MCH 30.4 pg (25.7-33.7); MCHC 32.3 g/dl (32.0-36.0); MEAN CELL VOLUME 94.1 fl (80-96); MEAN PLT VOLUME 7.8 fl (7.5-11.1); MONO % 7.6 % (3.8-10.2); NEUT % 84.9 % (42.8-82.8); PLATELET COUNT 332 K/MM3 (134-434); RBC 3.49 M/mm3 (3.60-5.2); RDW 13.1 % (11.6-15.6); WHITE BLOOD COUNT 8.3 K/mm3 (4.0-10.0)
[2019-12-04 09:15] LABS: ALBUMIN 3.2 g/dl (3.4-5.0); BILIRUBIN,TOTAL 0.7 mg/dL (0.2-1); BLOOD UREA NITROGEN 19.1 mg/dL (7-18); CALCIUM 9.5 mg/dL (8.5-10.1); CREATININE 1.3 mg/dL (0.55-1.3); POTASSIUM 4.3 mmol/L (3.5-5.1); TOT PROT 6.9 g/dl (6.4-8.2)
[2019-12-04 09:24] LABS: INR 1.06 (0.83-1.09); PROTHROMBIN TIME (PATIENT) 12.5 SEC (9.7-13.0)
--- NOTE | 2019-12-04 09:45 | CONSULT ---
Consultation: REQUESTING PROVIDER: Dr Vernon CONSULT REQUEST: history of renal transplant HISTORY OF PRESENT ILLNESS: 73 y.o female with PMH of renal transplant (1 yr ago at [facility]) HTN HLD GERD presents with complaints of a left toe wound that has been present for the last 3 weeks- patient states that she has had wounds before but never this severe she noticed increasing redness and drainage of the third toe on the left foot so she came to the ED- MRI shows cellulitis of the left foot and third toe with osteomyelitis fragmentation of the phalanges of 3rd toe- patient started on ceftriaxone/vanc and will be going to the OR today for I and D . patients baseline Cr is 1.3-1.4 and this AM Cr was 1.3 REVIEW OF SYSTEMS: CONSTITUTIONAL: Absent: fever, chills, diaphoresis, generalized weakness, malaise, loss of appetite, weight change HEENT: Absent: rhinorrhea, nasal congestion, throat pain, throat swelling, difficulty swallowing, mouth swelling, ear pain, eye pain, visual changes CARDIOVASCULAR: Absent: chest pain, syncope, palpitations, irregular heart rate, lightheadedness , peripheral edema RESPIRATORY: Absent: cough, shortness of breath, dyspnea with exertion, orthopnea, wheezing, stridor, hemoptysis GASTROINTESTINAL: Absent: abdominal pain, abdominal distension, nausea, vomiting, diarrhea, constipation, melena, hematochezia GENITOURINARY: Absent: dysuria, frequency, urgency, hesitancy, hematuria, flank pain, genital pain MUSCULOSKELETAL: Absent: myalgia, arthralgia, joint swelling, back pain, neck pain SKIN: Absent: rash, itching, pallor HEMATOLOGIC/IMMUNOLOGIC: Absent: easy bleeding, easy bruising, lymphadenopathy, frequent infections ENDOCRINE: Absent: unexplained weight gain, unexplained weight loss, heat intolerance, cold intolerance NEUROLOGIC: Absent: headache, focal weakness or paresthesias, dizziness, unsteady gait, seizure, mental status changes, bladder or bowel incontinence PSYCHIATRIC: Absent: anxiety, depression, suicidal or homicidal ideation, hallucinations. PHYSICAL EXAMINATION Vital Signs - 24 hr 12/03/19 12/03/19 12/03/19 10:00 14:00 18:00 Temperature 98.1 F 98.2 F 98 F Pulse Rate 84 105 H 97 H Respiratory 20 20 20 Rate Blood Pressure 141/66 133/71 141/66 O2 Sat by Pulse Oximetry (%) 12/03/19 12/03/19 12/04/19 21:00 22:00 07:04 Temperature 98.8 F 98.3 F Pulse Rate 92 H 99 H Respiratory 20 20 Rate Blood Pressure 148/73 161/70 O2 Sat by Pulse 100 Oximetry (%) GENERAL: Awake, alert, and fully oriented, in no acute distress. EYES: PEERLA:EOMI no scleral icterus NECK: no JVD; no lymphadenopathy LUNGS: CTA B/L; no rales, rhonchi or wheezing HEART: RRR s1; s2 no murmurs/rubs/gallops ABDOMEN: Soft, NT/ND +BS in all 4 quadrants MUSCULOSKELETAL:no CVA tenderness EXTREMITIES: warm; well-perfused no clubbing/cyanosis or edema- Left foot dressing c/d/i PSYCHIATRIC: Cooperative. Good eye contact. Appropriate mood and affect. SKIN: Warm, dry, normal turgor, no rashes or lesions noted. Laboratory Results - last 24 hr 12/03/19 12/03/19 12/03/19 11:15 16:59 22:06 WBC RBC Hgb Hct MCV MCH MCHC RDW Plt Count MPV Absolute Neuts (auto) Neutrophils % Lymphocytes % Monocytes % Eosinophils % Basophils % Nucleated RBC % PT with INR INR Sodium Potassium Chloride Carbon Dioxide Anion Gap BUN Creatinine Est GFR (CKD-EPI)AfAm Est GFR (CKD-EPI)NonAf POC Glucometer 159 171 112 Random Glucose Calcium Total Bilirubin AST ALT Alkaline Phosphatase Total Protein Albumin 12/04/19 12/04/19 12/04/19 06:13 08:20 08:20 WBC 8.3 RBC 3.49 L Hgb 10.6 L Hct 32.9 MCV 94.1 MCH 30.4 MCHC 32.3 RDW 13.1 Plt Count 332 MPV 7.8 Absolute Neuts (auto) 7.1 Neutrophils % 84.9 H Lymphocytes % 6.3 L Monocytes % 7.6 Eosinophils % 0.9 Basophils % 0.3 Nucleated RBC % 0 PT with INR 12.50 INR 1.06 Sodium Potassium Chloride Carbon Dioxide Anion Gap BUN Creatinine Est GFR (CKD-EPI)AfAm Est GFR (CKD-EPI)NonAf POC Glucometer 172 Random Glucose Calcium Total Bilirubin AST ALT Alkaline Phosphatase Total Protein Albumin 12/04/19 08:20 WBC RBC Hgb Hct MCV MCH MCHC RDW Plt Count MPV Absolute Neuts (auto) Neutrophils % Lymphocytes % Monocytes % Eosinophils % Basophils % Nucleated RBC % PT with INR INR Sodium 137 Potassium 4.3 Chloride 107 Carbon Dioxide 21 Anion Gap 9 BUN 19.1 H Creatinine 1.3 Est GFR (CKD-EPI)AfAm 47.80 Est GFR (CKD-EPI)NonAf 41.24 POC Glucometer Random Glucose 157 H Calcium 9.5 Total Bilirubin 0.7 AST 9 L ALT 16 Alkaline Phosphatase 87 Total Protein 6.9 Albumin 3.2 L Active Medications Generic Name Dose Route Start Last Admin Trade Name Freq PRN Reason Stop Dose Admin Aspirin 81 mg 12/02/19 10:00 12/03/19 09:54 Asa - PO 81 mg DAILY [facility] Administration Atorvastatin Calcium 10 mg 12/01/19 22:00 12/03/19 22:01 Lipitor - PO 10 mg HS [facility] Administration Budesonide/Formoterol Fumarate 1 puff 12/01/19 22:00 12/03/19 22:03 Symbicort 160/4.5mcg - IH 1 puff BID [facility] Administration Heparin Sodium (Porcine) 5,000 unit 12/01/19 22:00 12/03/19 22:00 Heparin - SQ Not Given BID [facility] Ceftriaxone Sodium 1 gm/ 50 mls @ 100 mls/hr 12/02/19 14:15 12/03/19 09:52 Dextrose IVPB 100 mls/hr DAILY [facility] Administration Protocol Vancomycin HCl 1,000 mg in 250 mls @ 200 mls/hr 12/03/19 03:00 12/04/19 03:44 Vancomycin (Pre-Docked) IVPB 200 mls/hr Q24H [facility] Administration Protocol Insulin Aspart 1 vial 12/01/19 22:00 12/04/19 06:15 Novolog Vial Sliding Scale - SQ Not Given ACHS [facility] Protocol Nifedipine 30 mg 12/02/19 22:00 12/03/19 22:02 Procardia Xl - PO 30 mg BID [facility] Administration Non-Formulary Medication 360 mg 12/01/19 21:30 Mycophenolate Sodium [Myfortic] PO ASDIR [facility] Pantoprazole Sodium 40 mg 12/02/19 10:00 12/03/19 09:54 Protonix - PO 40 mg DAILY [facility] Administration Prednisone 5 mg 12/02/19 10:00 12/03/19 09:55 Deltasone - PO 5 mg DAILY [facility] Administration Sitagliptin Phosphate 50 mg 12/02/19 07:00 12/04/19 07:50 Januvia - PO Not Given DAILY@0700 [facility] Tacrolimus 5 mg 12/01/19 22:00 12/03/19 22:02 Prograf PO 5 mg BID [facility] Administration ASSESSMENT/PLAN: 73 y.o female with PMH of renal transplant (1 yr ago at [facility]) HTN HLD GERD presents with complaints of a left toe wound that has been present for the last 3 weeks found to have osteomyelitis of left third toe #Renal transplant #Osteomyelitis hold mycophenolate mofetil; c/w tacrolimus and prednisone IV abx monitor BMP in AM avoid nephrotoxic drugs; avoid NSAIDS Dispo: We will continue to follow the patient. Thank you for this consultative opportunity. Problem List - Problems (1) Foot ulcer Code(s): L97.509 - NON-PRESSURE CHRONIC ULCER OTH PRT UNSP FOOT W UNSP SEVERITY (2) Immunocompromised Code(s): D89.9 - DISORDER INVOLVING THE IMMUNE MECHANISM, UNSPECIFIED (3) Kidney transplant recipient Code(s): Z94.0 - KIDNEY TRANSPLANT STATUS (4) Osteomyelitis Code(s): M86.9 - OSTEOMYELITIS, UNSPECIFIED Visit type - Emergency Visit Emergency Visit: Yes ED Registration Date: 12/01/19 Care time: The patient presented to the Emergency Department on the above date and was hospitalized for further evaluation of their emergent condition. - New Patient This patient is new to me today: Yes Date on this admission: 12/04/19 - Critical Care Critical Care patient: No ATTENDING PHYSICIAN STATEMENT I saw and evaluated the patient. I reviewed the resident's note and discussed the case with the resident. I agree with the resident's findings and plan as documented. SUBJECTIVE: OBJECTIVE: ASSESSMENT AND PLAN:
--- NOTE | 2019-12-04 09:52 | PN ---
Progress Note (short form) - Note Progress Note: Vascular Surgery Pt seen and examined. Pt's left foot is warm, and pink. Pt has dopplerable DP pulse. Pt is cleared for podiatry intervention. Stefano Torres DO
[2019-12-04] MEDS ORDERED: MIDAZOLAM HCL 2 MG/2 ML SINGLE DOSE VIAL ONE ×3 (09:55→10:14)
[2019-12-04] MEDS ORDERED: LIDOCAINE HCL 1%, 10 MG/ML (20ML VIAL) PNB ONE (09:56)
[2019-12-04] MEDS ORDERED: BUPIVACAINE HCL/PF 0.5% (5 MG/ML) 30 ML VIAL IJ ONE (09:56)
[2019-12-04] MEDS ORDERED: BACITRACIN 50,000 UNITS VIAL TP ONE (09:58)
[2019-12-04] MEDS ORDERED: LIDOCAINE HCL 1%, 10 MG/ML (20ML VIAL) ONE (10:02)
--- NOTE | 2019-12-04 10:29 | PN ---
Progress Note, Physician History of Present Illness: stable no new issues - Current Medication List Current Medications: Active Medications Aspirin (Asa -) 81 mg PO DAILY [facility] Last Admin: 12/03/19 09:54 Dose: 81 mg Atorvastatin Calcium (Lipitor -) 10 mg PO HS [facility] Last Admin: 12/03/19 22:01 Dose: 10 mg Budesonide/Formoterol Fumarate (Symbicort 160/4.5mcg -) 1 puff IH BID [facility] Last Admin: 12/03/19 22:03 Dose: 1 puff Heparin Sodium (Porcine) (Heparin -) 5,000 unit SQ BID [facility] Last Admin: 12/03/19 22:00 Dose: Not Given Ceftriaxone Sodium 1 gm/ (Dextrose) 50 mls @ 100 mls/hr IVPB DAILY [facility]; Protocol Last Admin: 12/03/19 09:52 Dose: 100 mls/hr Vancomycin HCl (Vancomycin (Pre-Docked)) 1,000 mg in 250 mls @ 200 mls/hr IVPB Q24H [facility]; Protocol Last Admin: 12/04/19 03:44 Dose: 200 mls/hr Insulin Aspart (Novolog Vial Sliding Scale -) 1 vial SQ ACHS [facility]; Protocol Last Admin: 12/04/19 06:15 Dose: Not Given Nifedipine (Procardia Xl -) 30 mg PO BID [facility] Last Admin: 12/03/19 22:02 Dose: 30 mg Non-Formulary Medication (Mycophenolate Sodium [Myfortic]) 360 mg PO ASDIR [facility] Pantoprazole Sodium (Protonix -) 40 mg PO DAILY [facility] Last Admin: 12/03/19 09:54 Dose: 40 mg Prednisone (Deltasone -) 5 mg PO DAILY [facility] Last Admin: 12/03/19 09:55 Dose: 5 mg Sitagliptin Phosphate (Januvia -) 50 mg PO DAILY@0700 [facility] Last Admin: 12/04/19 07:50 Dose: Not Given Tacrolimus (Prograf) 5 mg PO BID [facility] Last Admin: 12/03/19 22:02 Dose: 5 mg - Objective Vital Signs: Vital Signs Temperature 98.3 F 12/04/19 07:04 Pulse Rate 99 H 12/04/19 07:04 Respiratory Rate 20 12/04/19 07:04 Blood Pressure 161/70 12/04/19 07:04 O2 Sat by Pulse Oximetry (%) 100 12/03/19 21:00 Constitutional: Yes: No Distress, Calm Cardiovascular: Yes: S1, S2 Respiratory: Yes: Regular, CTA Bilaterally Gastrointestinal: Yes: Normal Bowel Sounds, Soft Musculoskeletal: Yes: WNL Extremities: Yes: Erythema, Other Neurological: Yes: Alert, Oriented Psychiatric: Yes: Alert, Oriented Labs: CBC, BMP 12/04/19 08:20 12/04/19 08:20 INR, PTT INR 1.06 (0.83-1.09) 12/04/19 08:20 Assessment/Plan Problem List - Problems (1) Osteomyelitis Code(s): M86.9 - OSTEOMYELITIS, UNSPECIFIED (2) Kidney transplant recipient Code(s): Z94.0 - KIDNEY TRANSPLANT STATUS (3) Asthma Code(s): J45.909 - UNSPECIFIED ASTHMA, UNCOMPLICATED Qualifiers: Asthma severity: mild intermittent (4) Diabetes Code(s): E11.9 - TYPE 2 DIABETES MELLITUS WITHOUT COMPLICATIONS Qualifiers: Diabetes mellitus complication status: with diabetic arthropathy (5) Hyperlipidemia Code(s): E78.5 - HYPERLIPIDEMIA, UNSPECIFIED (6) Rheumatoid arthritis Code(s): M06.9 - RHEUMATOID ARTHRITIS, UNSPECIFIED plan continue abx mri results noted osteo cx sensitivities awaited rest as per the team
[2019-12-04 12:01] LABS: MAGNESIUM 1.8 mg/dL (1.8-2.4); PHOSPHOROUS 3.7 mg/dL (2.5-4.9)
--- NOTE | 2019-12-04 12:03 | PN ---
Progress Note, Physician Chief Complaint: follow up left foot - Current Medication List Current Medications: Active Medications Aspirin (Asa -) 81 mg PO DAILY [facility] Last Admin: 12/03/19 09:54 Dose: 81 mg Atorvastatin Calcium (Lipitor -) 10 mg PO HS [facility] Last Admin: 12/03/19 22:01 Dose: 10 mg Budesonide/Formoterol Fumarate (Symbicort 160/4.5mcg -) 1 puff IH BID [facility] Last Admin: 12/03/19 22:03 Dose: 1 puff Heparin Sodium (Porcine) (Heparin -) 5,000 unit SQ BID [facility] Last Admin: 12/03/19 22:00 Dose: Not Given Ceftriaxone Sodium 1 gm/ (Dextrose) 50 mls @ 100 mls/hr IVPB DAILY [facility]; Protocol Last Admin: 12/03/19 09:52 Dose: 100 mls/hr Vancomycin HCl (Vancomycin (Pre-Docked)) 1,000 mg in 250 mls @ 200 mls/hr IVPB Q24H [facility]; Protocol Last Admin: 12/04/19 03:44 Dose: 200 mls/hr Insulin Aspart (Novolog Vial Sliding Scale -) 1 vial SQ ACHS [facility]; Protocol Last Admin: 12/04/19 06:15 Dose: Not Given Nifedipine (Procardia Xl -) 30 mg PO BID [facility] Last Admin: 12/03/19 22:02 Dose: 30 mg Non-Formulary Medication (Mycophenolate Sodium [Myfortic]) 360 mg PO ASDIR [facility] Pantoprazole Sodium (Protonix -) 40 mg PO DAILY [facility] Last Admin: 12/03/19 09:54 Dose: 40 mg Prednisone (Deltasone -) 5 mg PO DAILY [facility] Last Admin: 12/03/19 09:55 Dose: 5 mg Sitagliptin Phosphate (Januvia -) 50 mg PO DAILY@0700 [facility] Last Admin: 12/04/19 07:50 Dose: Not Given Tacrolimus (Prograf) 5 mg PO BID [facility] Last Admin: 12/03/19 22:02 Dose: 5 mg - Objective Vital Signs: Vital Signs Temperature 98.3 F 12/04/19 07:04 Pulse Rate 99 H 12/04/19 07:04 Respiratory Rate 20 12/04/19 07:04 Blood Pressure 161/70 12/04/19 07:04 O2 Sat by Pulse Oximetry (%) 100 12/03/19 21:00 Extremities: Yes: Other (+om with wound plantar left 3rd metatrsal) Labs: CBC, BMP 12/04/19 08:20 12/04/19 08:20 INR, PTT INR 1.06 (0.83-1.09) 12/04/19 08:20 Assessment/Plan exostosis abscess om I&D with debridement of bone and soft tissue today. Please maximize for OR. Vascular clearance done. Pt consented for I&D and debridement of bone and soft tissue left foot with resection 3rd met head. Pt and daughter Eryn fully understood all risks benefits and alternatives and consented to surgical intervention today. Reviewed xray with pt and daughter.
--- NOTE | 2019-12-04 12:07 | OP ---
Operative Note - Note: Operative Date: 12/04/19 Pre-Operative Diagnosis: OM and wound with abscess left foot Operation: Amputation of proximal phalanx with partial met head resection left 3rd mpj. Revision of wound and /" iodoform packing and retention sutures.. Findings: soft bone and necrotic tissue Post-Operative Diagnosis: Same as Pre-op Surgeon: [employer] Supervisor: Yvon Bowden Anesthesia: Local, MAC Specimens Removed: bone soft tissue Estimated Blood Loss (mls): 20 Instrument used (Debridements only): 15 blade Operative Report Dictated: No
[2019-12-04] MEDS ORDERED: cefTRIAXone SODIUM 1 GM VIAL ONE (12:17)
[2019-12-04] MEDS ORDERED: PT OWN MED DRAWER 7, Y5N ONE ×2 (12:17→21:41)
[2019-12-04] MEDS ORDERED: DEXTROSE 5%-WATER - 50 ML IVPB ONE (12:17)
[2019-12-04] MEDS: HEPARIN NA (PORCINE) 5,000 UNITS/ML 1ML VIAL SQ SCH ×2 (12:21→22:08)
[2019-12-04] MEDS: predniSONE 5 MG TABLET (UD) PO SCH (12:21)
[2019-12-04] MEDS: NIFEdipine E.R. 30 MG TABLET PO SCH ×2 (12:21→22:09)
[2019-12-04] MEDS: ASPIRIN 81 MG CHEWABLE TABLETS PO SCH (12:21)
[2019-12-04] MEDS: PANTOPRAZOLE 40 MG TABLET PO SCH (12:21)
[2019-12-04] MEDS: TACROLIMUS ANHYDROUS 5 MG CAPSULE PO SCH ×2 (12:22→22:09)
[2019-12-04] MEDS: CEFTRIAXONE 1 GM in DEXTROSE 5%-WATER - 50 ML IVPB SCH (12:22)
[2019-12-04] MEDS: BUDESONIDE/FORMETEROL FUMARATE 160/4.5 mcg INHALER IH SCH ×2 (12:22→22:10)
[2019-12-04] MEDS ORDERED: MYCOPHENOLATE SODIUM 360 MG PO SCH (12:29)
--- NOTE | 2019-12-04 15:32 | PN ---
Progress Note (short form) - Note Progress Note: Post op check. Pt seen sitting in chair against medical advice. +dressing clean dry and intact, Violeta post op Advised to go back to bed. No BRP. Do not remove dressing. Will be changed on Sunday by Podiatry. Dr. Bowden covering this weekend.
--- NOTE | 2019-12-04 18:46 | PN ---
Teaching Attending Note Name of Resident: Luh Araujo (Nephrology) ATTENDING PHYSICIAN STATEMENT I saw and evaluated the patient. I reviewed the resident's note and discussed the case with the resident. I agree with the resident's findings and plan as documented. Renal Pt is a 73 year old female with pmhx of kidney transplant about 1 year ago who presents to the ER with left toe wound that she has had for 3 weeks. SHe had low grade fevers at home. She denies chills. She was taken to the OR for I and D. 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 pmhx kidney transplant htn hld gerd alleriges pcn cipro fam hx non contrib social hx neg ros neg Laboratory Tests 12/04/19 08:20 BUN 19.1 H Creatinine 1.3 Current Medications Generic Name Dose Route Start Last Admin Trade Name Freq PRN Reason Stop Dose Admin Aspirin 81 mg 12/05/19 10:00 Asa - PO DAILY [facility] Atorvastatin Calcium 10 mg 12/04/19 22:00 Lipitor - PO HS [facility] Atovaquone 750 mg 12/05/19 10:00 Mepron - PO DAILY [facility] Budesonide/Formoterol Fumarate 1 puff 12/04/19 22:00 Symbicort 160/4.5mcg - IH BID [facility] Heparin Sodium (Porcine) 5,000 unit 12/04/19 22:00 Heparin - SQ BID [facility] Ceftriaxone Sodium 1 gm/ 50 mls @ 100 mls/hr 12/05/19 10:00 Dextrose IVPB DAILY [facility] Protocol Vancomycin HCl 1,000 mg in 250 mls @ 200 mls/hr 12/05/19 03:00 Vancomycin (Pre-Docked) IVPB Q24H [facility] Protocol Insulin Aspart 1 vial 12/04/19 16:30 12/04/19 17:33 Novolog Vial Sliding Scale - SQ Not Given ACHS [facility] Protocol Nifedipine 30 mg 12/04/19 22:00 Procardia Xl - PO BID [facility] Non-Formulary Medication 360 mg 12/04/19 12:29 Mycophenolate Sodium [Myfortic] PO ASDIR [facility] Pantoprazole Sodium 40 mg 12/05/19 10:00 Protonix - PO DAILY [facility] Prednisone 5 mg 12/05/19 10:00 Deltasone - PO DAILY [facility] Sitagliptin Phosphate 50 mg 12/05/19 07:00 Januvia - PO DAILY@0700 [facility] Tacrolimus 5 mg 12/04/19 22:00 Prograf PO BID [facility] cardio s1s2 pulm cleat GI soft gu graft soft and non tender, neg bruit ext neg edema, chonic hand deformity neuro awake and alert Impression 1. kidney transplant 2. htn 3. hld 4. gerd 5. cellulitis 6. s/p part left toe ampuation Plan - cont tacrolimus and mycophenylate - cont prednisone - monitor renal function - check ua - check prograf level - pt was seen by Dr Chin in the past, I called him and will change consult over to him
[2019-12-04] MEDS: ATORVASTATIN CA 10 MG TABLET (FP) PO SCH (22:08)
[2019-12-04] MEDS ORDERED: ACETAMINOPHEN 325 MG TABLET (FP) PO PRN (22:49)
--- NOTE | 2019-12-04 22:50 | PN ---
Progress Note, Physician History of Present Illness: Pt tolerated surgery - Current Medication List Current Medications: Active Medications Aspirin (Asa -) 81 mg PO DAILY [facility] Atorvastatin Calcium (Lipitor -) 10 mg PO HS [facility] Last Admin: 12/04/19 22:08 Dose: 10 mg Atovaquone (Mepron -) 750 mg PO DAILY [facility] Budesonide/Formoterol Fumarate (Symbicort 160/4.5mcg -) 1 puff IH BID [facility] Last Admin: 12/04/19 22:10 Dose: 1 puff Heparin Sodium (Porcine) (Heparin -) 5,000 unit SQ BID [facility] Last Admin: 12/04/19 22:08 Dose: Not Given Ceftriaxone Sodium 1 gm/ (Dextrose) 50 mls @ 100 mls/hr IVPB DAILY [facility]; Protocol Vancomycin HCl (Vancomycin (Pre-Docked)) 1,000 mg in 250 mls @ 200 mls/hr IVPB Q24H [facility]; Protocol Insulin Aspart (Novolog Vial Sliding Scale -) 1 vial SQ ACHS [facility]; Protocol Last Admin: 12/04/19 22:16 Dose: Not Given Nifedipine (Procardia Xl -) 30 mg PO BID [facility] Last Admin: 12/04/19 22:09 Dose: 30 mg Non-Formulary Medication (Mycophenolate Sodium [Myfortic]) 360 mg PO ASDIR [facility] Pantoprazole Sodium (Protonix -) 40 mg PO DAILY [facility] Prednisone (Deltasone -) 5 mg PO DAILY [facility] Sitagliptin Phosphate (Januvia -) 50 mg PO DAILY@0700 [facility] Tacrolimus (Prograf) 5 mg PO BID [facility] Last Admin: 12/04/19 22:09 Dose: 5 mg - Objective Vital Signs: Vital Signs Temperature 98.0 F 12/04/19 22:00 Pulse Rate 91 H 12/04/19 22:00 Respiratory Rate 18 12/04/19 22:00 Blood Pressure 142/79 12/04/19 22:00 O2 Sat by Pulse Oximetry (%) 100 12/04/19 15:39 Cardiovascular: Yes: WNL, Regular Rate and Rhythm Respiratory: Yes: WNL, Regular, CTA Bilaterally Gastrointestinal: Yes: WNL, Normal Bowel Sounds, Soft Extremities: Yes: Other ((+) LT foot in dressing) Labs: CBC, BMP 12/04/19 08:20 12/04/19 08:20 INR, PTT INR 1.06 (0.83-1.09) 12/04/19 08:20 Problem List - Problems (1) Osteomyelitis Assessment/Plan: Cont IV vanco/ceftriaxone MRI showed osteo of 3rd toe S/P amputation/debridement/resection of 3rd lt toe Code(s): M86.9 - OSTEOMYELITIS, UNSPECIFIED (2) Kidney transplant recipient Assessment/Plan: Renal consult noted Cont prednisone/myfortic/prograf Code(s): Z94.0 - KIDNEY TRANSPLANT STATUS (3) Asthma Assessment/Plan: Cont inhalers Code(s): J45.909 - UNSPECIFIED ASTHMA, UNCOMPLICATED Qualifiers: Asthma severity: mild intermittent (4) Diabetes Assessment/Plan: Cont januvia Cont sliding scale w/ coverage Code(s): E11.9 - TYPE 2 DIABETES MELLITUS WITHOUT COMPLICATIONS Qualifiers: Diabetes mellitus complication status: with diabetic arthropathy (5) Hyperlipidemia Assessment/Plan: Cont lipitor Code(s): E78.5 - HYPERLIPIDEMIA, UNSPECIFIED (6) Rheumatoid arthritis Code(s): M06.9 - RHEUMATOID ARTHRITIS, UNSPECIFIED
[2019-12-05] MEDS: VANCOMYCIN 1 GRAM (PRE-DOCKED) 1,000 MG/250 ML BAG IVPB SCH ×2 (03:32→15:37)
[2019-12-05] MEDS: INSULIN SLIDING SCALE (NOVOLOG) 1 VIAL SQ SCH ×4 (06:49→22:36)
[2019-12-05] MEDS: sitaGLIPtin PHOSPHATE 50 MG TABLET PO SCH (06:50)
[2019-12-05] MEDS ORDERED: PT OWN MED DRAWER 7, Y5N ONE ×2 (07:50→09:05)
--- NOTE | 2019-12-05 08:46 | PN ---
Progress Note (short form) - Note Progress Note: 73F s/p Left foot debridement under MAC. No new c/o. Vital Signs Temp 98.8 F 12/05/19 06:53 Pulse 94 H 12/05/19 06:53 Resp 18 12/05/19 06:53 BP 109/70 12/05/19 06:53 Pulse Ox 100 12/04/19 21:00 Intake & Output 12/04/19 12/04/19 12/05/19 11:59 23:59 11:59 Intake Total 500 50 Output Total 0 Balance 500 50 Intake: IV 250 IVPB 250 50 Output: Urine 0 Other: Voiding Method Bedside Commode Bedside Commode # Unmeasured Voids Void 2 1 1 Bowel Movement No No Current Medications Generic Name Dose Route Start Last Admin Trade Name Freq PRN Reason Stop Dose Admin Acetaminophen 650 mg 12/04/19 22:49 Tylenol - PO Q6H PRN PAIN LEVEL 1 - 3 Aspirin 81 mg 12/05/19 10:00 Asa - PO DAILY [facility] Atorvastatin Calcium 10 mg 12/04/19 22:00 12/04/19 22:08 Lipitor - PO 10 mg HS [facility] Administration Atovaquone 750 mg 12/05/19 10:00 Mepron - PO DAILY [facility] Budesonide/Formoterol Fumarate 1 puff 12/04/19 22:00 12/04/19 22:10 Symbicort 160/4.5mcg - IH 1 puff BID [facility] Administration Heparin Sodium (Porcine) 5,000 unit 12/04/19 22:00 12/04/19 22:08 Heparin - SQ Not Given BID [facility] Ceftriaxone Sodium 1 gm/ 50 mls @ 100 mls/hr 12/05/19 10:00 Dextrose IVPB DAILY [facility] Protocol Vancomycin HCl 1,000 mg in 250 mls @ 200 mls/hr 12/05/19 03:00 Vancomycin (Pre-Docked) IVPB Q24H [facility] Protocol Insulin Aspart 1 vial 12/04/19 16:30 12/05/19 06:49 Novolog Vial Sliding Scale - SQ Not Given ACHS [facility] Protocol Nifedipine 30 mg 12/04/19 22:00 12/04/19 22:09 Procardia Xl - PO 30 mg BID [facility] Administration Non-Formulary Medication 360 mg 12/04/19 12:29 Mycophenolate Sodium [Myfortic] PO ASDIR [facility] Pantoprazole Sodium 40 mg 12/05/19 10:00 Protonix - PO DAILY [facility] Prednisone 5 mg 12/05/19 10:00 Deltasone - PO DAILY [facility] Sitagliptin Phosphate 50 mg 12/05/19 07:00 12/05/19 06:50 Januvia - PO 50 mg DAILY@0700 [facility] Administration Tacrolimus 5 mg 12/04/19 22:00 12/04/19 22:09 Prograf PO 5 mg BID [facility] Administration AM Labs pending - No anesthesia complications
[2019-12-05 08:50] LABS: BASO % 0.2 % (0-2.0); EOS % 0.7 % (0-4.5); HEMATOCRIT 30.8 % (32.4-45.2); LYMPH % 7.1 % (8-40); MCH 30.6 pg (25.7-33.7); MCHC 32.6 g/dl (32.0-36.0); MEAN CELL VOLUME 93.7 fl (80-96); MEAN PLT VOLUME 7.7 fl (7.5-11.1); MONO % 7.7 % (3.8-10.2); NEUT % 84.3 % (42.8-82.8); PLATELET COUNT 294 K/MM3 (134-434); RBC 3.28 M/mm3 (3.60-5.2); RDW 13.1 % (11.6-15.6); WHITE BLOOD COUNT 7.9 K/mm3 (4.0-10.0)
[2019-12-05] MEDS ORDERED: cefTRIAXone SODIUM 1 GM VIAL ONE (09:06)
[2019-12-05] MEDS ORDERED: DEXTROSE 5%-WATER - 50 ML IVPB ONE (09:07)
[2019-12-05] MEDS: PANTOPRAZOLE 40 MG TABLET PO SCH (09:11)
[2019-12-05] MEDS: ASPIRIN 81 MG CHEWABLE TABLETS PO SCH (09:11)
[2019-12-05] MEDS: NIFEdipine E.R. 30 MG TABLET PO SCH ×2 (09:11→22:29)
[2019-12-05] MEDS: HEPARIN NA (PORCINE) 5,000 UNITS/ML 1ML VIAL SQ SCH ×2 (09:12→22:36)
[2019-12-05] MEDS: predniSONE 5 MG TABLET (UD) PO SCH (09:12)
[2019-12-05 09:13] LABS: ALBUMIN 2.8 g/dl (3.4-5.0); BILIRUBIN,TOTAL 0.5 mg/dL (0.2-1); BLOOD UREA NITROGEN 23.3 mg/dL (7-18); CALCIUM 9.2 mg/dL (8.5-10.1); CREATININE 1.3 mg/dL (0.55-1.3); POTASSIUM 4.3 mmol/L (3.5-5.1); TOT PROT 6.1 g/dl (6.4-8.2)
[2019-12-05] MEDS: TACROLIMUS ANHYDROUS 5 MG CAPSULE PO SCH ×2 (09:13→22:29)
[2019-12-05] MEDS: ATOVAQUONE 750 MG/5 ML (UNIT-DOSE PACKAGING) PO SCH (09:18)
[2019-12-05] MEDS: CEFTRIAXONE 1 GM in DEXTROSE 5%-WATER - 50 ML IVPB SCH (11:05)
[2019-12-05] MEDS: BUDESONIDE/FORMETEROL FUMARATE 160/4.5 mcg INHALER IH SCH ×2 (11:05→22:41)
--- NOTE | 2019-12-05 11:32 | PN ---
Progress Note, Physician Chief Complaint: Patient seen at bedside and feels good Pre-op OM and wound with abscess left foot.Post op- Amputation of proximal phalanx with partial met head resection left 3rd mpj Dressing dry, clean and intact Patient told to stay in bed Will follow Dr Bowden - Current Medication List Current Medications: Active Medications Acetaminophen (Tylenol -) 650 mg PO Q6H PRN PRN Reason: PAIN LEVEL 1 - 3 Aspirin (Asa -) 81 mg PO DAILY [facility] Last Admin: 12/05/19 09:11 Dose: 81 mg Atorvastatin Calcium (Lipitor -) 10 mg PO HS [facility] Last Admin: 12/04/19 22:08 Dose: 10 mg Atovaquone (Mepron -) 750 mg PO DAILY [facility] Last Admin: 12/05/19 09:18 Dose: 750 mg Budesonide/Formoterol Fumarate (Symbicort 160/4.5mcg -) 1 puff IH BID [facility] Last Admin: 12/05/19 11:05 Dose: Not Given Heparin Sodium (Porcine) (Heparin -) 5,000 unit SQ BID [facility] Last Admin: 12/05/19 09:12 Dose: Not Given Ceftriaxone Sodium 1 gm/ (Dextrose) 50 mls @ 100 mls/hr IVPB DAILY [facility]; Protocol Last Admin: 12/05/19 11:05 Dose: Not Given Vancomycin HCl (Vancomycin (Pre-Docked)) 1,000 mg in 250 mls @ 200 mls/hr IVPB Q24H [facility]; Protocol Insulin Aspart (Novolog Vial Sliding Scale -) 1 vial SQ ACHS [facility]; Protocol Last Admin: 12/05/19 11:02 Dose: Not Given Nifedipine (Procardia Xl -) 30 mg PO BID [facility] Last Admin: 12/05/19 09:11 Dose: 30 mg Non-Formulary Medication (Mycophenolate Sodium [Myfortic]) 360 mg PO ASDIR [facility] Pantoprazole Sodium (Protonix -) 40 mg PO DAILY [facility] Last Admin: 12/05/19 09:11 Dose: 40 mg Prednisone (Deltasone -) 5 mg PO DAILY [facility] Last Admin: 12/05/19 09:12 Dose: 5 mg Sitagliptin Phosphate (Januvia -) 50 mg PO DAILY@0700 [facility] Last Admin: 12/05/19 06:50 Dose: 50 mg Tacrolimus (Prograf) 5 mg PO BID [facility] Last Admin: 12/05/19 09:13 Dose: 5 mg - Objective Vital Signs: Vital Signs Temperature 98.8 F 12/05/19 06:53 Pulse Rate 94 H 12/05/19 06:53 Respiratory Rate 18 12/05/19 06:53 Blood Pressure 109/70 12/05/19 06:53 O2 Sat by Pulse Oximetry (%) 100 12/04/19 21:00 Labs: CBC, BMP 12/05/19 07:45 12/05/19 07:45 INR, PTT INR 1.06 (0.83-1.09) 12/04/19 08:20
--- NOTE | 2019-12-05 11:53 | PN ---
Progress Note, Physician History of Present Illness: stable no new issues - Current Medication List Current Medications: Active Medications Acetaminophen (Tylenol -) 650 mg PO Q6H PRN PRN Reason: PAIN LEVEL 1 - 3 Aspirin (Asa -) 81 mg PO DAILY [facility] Last Admin: 12/05/19 09:11 Dose: 81 mg Atorvastatin Calcium (Lipitor -) 10 mg PO HS [facility] Last Admin: 12/04/19 22:08 Dose: 10 mg Atovaquone (Mepron -) 750 mg PO DAILY [facility] Last Admin: 12/05/19 09:18 Dose: 750 mg Budesonide/Formoterol Fumarate (Symbicort 160/4.5mcg -) 1 puff IH BID [facility] Last Admin: 12/05/19 11:05 Dose: Not Given Heparin Sodium (Porcine) (Heparin -) 5,000 unit SQ BID [facility] Last Admin: 12/05/19 09:12 Dose: Not Given Ceftriaxone Sodium 1 gm/ (Dextrose) 50 mls @ 100 mls/hr IVPB DAILY [facility]; Protocol Last Admin: 12/05/19 11:05 Dose: Not Given Vancomycin HCl (Vancomycin (Pre-Docked)) 1,000 mg in 250 mls @ 200 mls/hr IVPB Q24H [facility]; Protocol Insulin Aspart (Novolog Vial Sliding Scale -) 1 vial SQ ACHS [facility]; Protocol Last Admin: 12/05/19 11:02 Dose: Not Given Nifedipine (Procardia Xl -) 30 mg PO BID [facility] Last Admin: 12/05/19 09:11 Dose: 30 mg Non-Formulary Medication (Mycophenolate Sodium [Myfortic]) 360 mg PO ASDIR [facility] Pantoprazole Sodium (Protonix -) 40 mg PO DAILY [facility] Last Admin: 12/05/19 09:11 Dose: 40 mg Prednisone (Deltasone -) 5 mg PO DAILY [facility] Last Admin: 12/05/19 09:12 Dose: 5 mg Sitagliptin Phosphate (Januvia -) 50 mg PO DAILY@0700 [facility] Last Admin: 12/05/19 06:50 Dose: 50 mg Tacrolimus (Prograf) 5 mg PO BID [facility] Last Admin: 12/05/19 09:13 Dose: 5 mg - Objective Vital Signs: Vital Signs Temperature 98.8 F 12/05/19 06:53 Pulse Rate 94 H 12/05/19 06:53 Respiratory Rate 18 12/05/19 06:53 Blood Pressure 109/70 12/05/19 06:53 O2 Sat by Pulse Oximetry (%) 100 12/04/19 21:00 Constitutional: Yes: No Distress, Calm Cardiovascular: Yes: S1, S2 Respiratory: Yes: Regular, CTA Bilaterally Gastrointestinal: Yes: Normal Bowel Sounds, Soft Musculoskeletal: Yes: WNL Extremities: Yes: Other Wound/Incision: Yes: Dressing Dry and Intact Neurological: Yes: Alert, Oriented Psychiatric: Yes: Alert, Oriented Labs: CBC, BMP 12/05/19 07:45 12/05/19 07:45 INR, PTT INR 1.06 (0.83-1.09) 12/04/19 08:20 Assessment/Plan Problem List - Problems (1) Osteomyelitis Code(s): M86.9 - OSTEOMYELITIS, UNSPECIFIED (2) Kidney transplant recipient Code(s): Z94.0 - KIDNEY TRANSPLANT STATUS (3) Asthma Code(s): J45.909 - UNSPECIFIED ASTHMA, UNCOMPLICATED Qualifiers: Asthma severity: mild intermittent (4) Diabetes Code(s): E11.9 - TYPE 2 DIABETES MELLITUS WITHOUT COMPLICATIONS Qualifiers: Diabetes mellitus complication status: with diabetic arthropathy (5) Hyperlipidemia Code(s): E78.5 - HYPERLIPIDEMIA, UNSPECIFIED (6) Rheumatoid arthritis Code(s): M06.9 - RHEUMATOID ARTHRITIS, UNSPECIFIED plan continue abx await for bone results rest as per the team
--- NOTE | 2019-12-05 12:57 | PN ---
Progress Note (short form) - Note Progress Note: Renal follow up for Renal transplant Seen and examined at the bedside offers no acute complaints denies any chest pain, fever, chills no pain in foot making urine Vital Signs Temperature 98.8 F 12/05/19 06:53 Pulse Rate 94 H 12/05/19 06:53 Respiratory Rate 18 12/05/19 06:53 Blood Pressure 109/70 12/05/19 06:53 O2 Sat by Pulse Oximetry (%) 100 12/04/19 21:00 Intake & Output 12/02/19 12/03/19 12/04/19 12/05/19 23:59 23:59 23:59 23:59 Intake Total 1200 250 550 Output Total 0 Balance 1200 250 550 Weight 84.55 kg NAD awake and alert neck supple RRR CTA soft NT/ND no LE edema foot in dressing CBC, BMP 12/05/19 07:45 12/05/19 07:45 Current Medications Acetaminophen (Tylenol -) 650 mg PO Q6H PRN PRN Reason: PAIN LEVEL 1 - 3 Aspirin (Asa -) 81 mg PO DAILY [facility] Last Admin: 12/05/19 09:11 Dose: 81 mg Atorvastatin Calcium (Lipitor -) 10 mg PO HS [facility] Last Admin: 12/04/19 22:08 Dose: 10 mg Atovaquone (Mepron -) 750 mg PO DAILY [facility] Last Admin: 12/05/19 09:18 Dose: 750 mg Budesonide/Formoterol Fumarate (Symbicort 160/4.5mcg -) 1 puff IH BID [facility] Last Admin: 12/05/19 11:05 Dose: Not Given Heparin Sodium (Porcine) (Heparin -) 5,000 unit SQ BID [facility] Last Admin: 12/05/19 09:12 Dose: Not Given Ceftriaxone Sodium 1 gm/ (Dextrose) 50 mls @ 100 mls/hr IVPB DAILY [facility]; Protocol Last Admin: 12/05/19 11:05 Dose: Not Given Insulin Aspart (Novolog Vial Sliding Scale -) 1 vial SQ ACHS [facility]; Protocol Last Admin: 12/05/19 11:02 Dose: Not Given Nifedipine (Procardia Xl -) 30 mg PO BID [facility] Last Admin: 12/05/19 09:11 Dose: 30 mg Non-Formulary Medication (Mycophenolate Sodium [Myfortic]) 360 mg PO ASDIR [facility] Pantoprazole Sodium (Protonix -) 40 mg PO DAILY [facility] Last Admin: 12/05/19 09:11 Dose: 40 mg Prednisone (Deltasone -) 5 mg PO DAILY [facility] Last Admin: 12/05/19 09:12 Dose: 5 mg Sitagliptin Phosphate (Januvia -) 50 mg PO DAILY@0700 [facility] Last Admin: 12/05/19 06:50 Dose: 50 mg Tacrolimus (Prograf) 5 mg PO BID [facility] Last Admin: 12/05/19 09:13 Dose: 5 mg 73 year old woman with ESRD s/p renal transplant 11/2018 at [facility], NIDDM, hx of leoprosty, rheumatic fecver, hypertension presented with lower leg ulcer and found to have cellulitis and osteomylitis. 1. Osteomylitis of lower extremity r/p amputation 2. ESRD s/p Renal transplant 3. Hypertension 4. DM Renal function stable and at baseline continue tacrolimus 5mg BID,myfortic 360mg BID check Vanco levels daily if to be continued on daily vancomycin Continue remainder of antibiotics per ID Wound care no signs of sepsis to warrant deescalation of immunosuppressive medications will follow up as needed Thank you Ricky Chin DO
--- NOTE | 2019-12-05 21:37 | PN ---
Progress Note, Physician - Current Medication List Current Medications: Active Medications Acetaminophen (Tylenol -) 650 mg PO Q6H PRN PRN Reason: PAIN LEVEL 1 - 3 Aspirin (Asa -) 81 mg PO DAILY [facility] Last Admin: 12/05/19 09:11 Dose: 81 mg Atorvastatin Calcium (Lipitor -) 10 mg PO HS [facility] Last Admin: 12/04/19 22:08 Dose: 10 mg Atovaquone (Mepron -) 750 mg PO DAILY [facility] Last Admin: 12/05/19 09:18 Dose: 750 mg Budesonide/Formoterol Fumarate (Symbicort 160/4.5mcg -) 1 puff IH BID [facility] Last Admin: 12/05/19 11:05 Dose: Not Given Heparin Sodium (Porcine) (Heparin -) 5,000 unit SQ BID [facility] Last Admin: 12/05/19 09:12 Dose: Not Given Ceftriaxone Sodium 1 gm/ (Dextrose) 50 mls @ 100 mls/hr IVPB DAILY [facility]; Protocol Last Admin: 12/05/19 11:05 Dose: Not Given Insulin Aspart (Novolog Vial Sliding Scale -) 1 vial SQ ACHS [facility]; Protocol Last Admin: 12/05/19 17:55 Dose: Not Given Nifedipine (Procardia Xl -) 30 mg PO BID [facility] Last Admin: 12/05/19 09:11 Dose: 30 mg Non-Formulary Medication (Mycophenolate Sodium [Myfortic]) 360 mg PO ASDIR [facility] Pantoprazole Sodium (Protonix -) 40 mg PO DAILY [facility] Last Admin: 12/05/19 09:11 Dose: 40 mg Prednisone (Deltasone -) 5 mg PO DAILY [facility] Last Admin: 12/05/19 09:12 Dose: 5 mg Sitagliptin Phosphate (Januvia -) 50 mg PO DAILY@0700 [facility] Last Admin: 12/05/19 06:50 Dose: 50 mg Tacrolimus (Prograf) 5 mg PO BID [facility] Last Admin: 12/05/19 09:13 Dose: 5 mg - Objective Vital Signs: Vital Signs Temperature 98.4 F 12/05/19 18:00 Pulse Rate 105 H 12/05/19 18:00 Respiratory Rate 20 12/05/19 18:00 Blood Pressure 144/80 12/05/19 18:00 O2 Sat by Pulse Oximetry (%) 100 12/05/19 09:00 Labs: CBC, BMP 12/05/19 07:45 12/05/19 07:45 INR, PTT INR 1.06 (0.83-1.09) 12/04/19 08:20 Problem List - Problems (1) Osteomyelitis Code(s): M86.9 - OSTEOMYELITIS, UNSPECIFIED (2) Kidney transplant recipient Code(s): Z94.0 - KIDNEY TRANSPLANT STATUS (3) Asthma Code(s): J45.909 - UNSPECIFIED ASTHMA, UNCOMPLICATED Qualifiers: Asthma severity: mild intermittent (4) Diabetes Code(s): E11.9 - TYPE 2 DIABETES MELLITUS WITHOUT COMPLICATIONS Qualifiers: Diabetes mellitus complication status: with diabetic arthropathy (5) Hyperlipidemia Code(s): E78.5 - HYPERLIPIDEMIA, UNSPECIFIED (6) Rheumatoid arthritis Code(s): M06.9 - RHEUMATOID ARTHRITIS, UNSPECIFIED
[2019-12-05] MEDS: ATORVASTATIN CA 10 MG TABLET (FP) PO SCH (22:29)
[2019-12-06] MEDS: INSULIN SLIDING SCALE (NOVOLOG) 1 VIAL SQ SCH ×4 (06:14→22:07)
[2019-12-06] MEDS: sitaGLIPtin PHOSPHATE 50 MG TABLET PO SCH (06:14)
[2019-12-06] MEDS ORDERED: cefTRIAXone SODIUM 1 GM VIAL ONE (10:04)
[2019-12-06] MEDS ORDERED: PT OWN MED DRAWER 7, Y5N ONE (10:04)
[2019-12-06] MEDS ORDERED: DEXTROSE 5%-WATER - 50 ML IVPB ONE (10:04)
[2019-12-06] MEDS: CEFTRIAXONE 1 GM in DEXTROSE 5%-WATER - 50 ML IVPB SCH (10:32)
[2019-12-06] MEDS: NIFEdipine E.R. 30 MG TABLET PO SCH ×2 (10:32→22:06)
[2019-12-06] MEDS: PANTOPRAZOLE 40 MG TABLET PO SCH (10:33)
[2019-12-06] MEDS: ASPIRIN 81 MG CHEWABLE TABLETS PO SCH (10:33)
[2019-12-06] MEDS: HEPARIN NA (PORCINE) 5,000 UNITS/ML 1ML VIAL SQ SCH ×2 (10:33→22:07)
[2019-12-06] MEDS: predniSONE 5 MG TABLET (UD) PO SCH (10:34)
[2019-12-06] MEDS: ATOVAQUONE 750 MG/5 ML (UNIT-DOSE PACKAGING) PO SCH (10:34)
[2019-12-06] MEDS: TACROLIMUS ANHYDROUS 5 MG CAPSULE PO SCH ×2 (10:34→22:06)
[2019-12-06] MEDS: BUDESONIDE/FORMETEROL FUMARATE 160/4.5 mcg INHALER IH SCH ×2 (10:35→22:07)
--- NOTE | 2019-12-06 12:00 | PN ---
Progress Note, Physician History of Present Illness: stable no new issues - Current Medication List Current Medications: Active Medications Acetaminophen (Tylenol -) 650 mg PO Q6H PRN PRN Reason: PAIN LEVEL 1 - 3 Aspirin (Asa -) 81 mg PO DAILY [facility] Last Admin: 12/06/19 10:33 Dose: 81 mg Atorvastatin Calcium (Lipitor -) 10 mg PO HS [facility] Last Admin: 12/05/19 22:29 Dose: 10 mg Atovaquone (Mepron -) 750 mg PO DAILY [facility] Last Admin: 12/06/19 10:34 Dose: 750 mg Budesonide/Formoterol Fumarate (Symbicort 160/4.5mcg -) 1 puff IH BID [facility] Last Admin: 12/06/19 10:35 Dose: 1 puff Heparin Sodium (Porcine) (Heparin -) 5,000 unit SQ BID [facility] Last Admin: 12/06/19 10:33 Dose: Not Given Ceftriaxone Sodium 1 gm/ (Dextrose) 50 mls @ 100 mls/hr IVPB DAILY [facility]; Protocol Last Admin: 12/06/19 10:32 Dose: 100 mls/hr Insulin Aspart (Novolog Vial Sliding Scale -) 1 vial SQ ACHS [facility]; Protocol Last Admin: 12/06/19 06:14 Dose: Not Given Nifedipine (Procardia Xl -) 30 mg PO BID [facility] Last Admin: 12/06/19 10:32 Dose: 30 mg Non-Formulary Medication (Mycophenolate Sodium [Myfortic]) 360 mg PO ASDIR [facility] Pantoprazole Sodium (Protonix -) 40 mg PO DAILY [facility] Last Admin: 12/06/19 10:33 Dose: 40 mg Prednisone (Deltasone -) 5 mg PO DAILY [facility] Last Admin: 12/06/19 10:34 Dose: 5 mg Sitagliptin Phosphate (Januvia -) 50 mg PO DAILY@0700 [facility] Last Admin: 12/06/19 06:14 Dose: 50 mg Tacrolimus (Prograf) 5 mg PO BID [facility] Last Admin: 12/06/19 10:34 Dose: 5 mg - Objective Vital Signs: Vital Signs Temperature 98.4 F 12/06/19 06:00 Pulse Rate 100 H 12/06/19 06:00 Respiratory Rate 20 12/06/19 06:00 Blood Pressure 108/64 12/06/19 06:00 O2 Sat by Pulse Oximetry (%) 100 12/05/19 21:00 Constitutional: Yes: No Distress, Calm Cardiovascular: Yes: S1, S2 Respiratory: Yes: Regular, CTA Bilaterally Gastrointestinal: Yes: Normal Bowel Sounds, Soft Musculoskeletal: Yes: WNL Extremities: Yes: WNL Neurological: Yes: Alert, Oriented Psychiatric: Yes: Alert, Oriented Labs: CBC, BMP 12/05/19 07:45 12/05/19 07:45 INR, PTT INR 1.06 (0.83-1.09) 12/04/19 08:20 Assessment/Plan Problem List - Problems (1) Osteomyelitis Code(s): M86.9 - OSTEOMYELITIS, UNSPECIFIED (2) Kidney transplant recipient Code(s): Z94.0 - KIDNEY TRANSPLANT STATUS (3) Asthma Code(s): J45.909 - UNSPECIFIED ASTHMA, UNCOMPLICATED Qualifiers: Asthma severity: mild intermittent (4) Diabetes Code(s): E11.9 - TYPE 2 DIABETES MELLITUS WITHOUT COMPLICATIONS Qualifiers: Diabetes mellitus complication status: with diabetic arthropathy (5) Hyperlipidemia Code(s): E78.5 - HYPERLIPIDEMIA, UNSPECIFIED (6) Rheumatoid arthritis Code(s): M06.9 - RHEUMATOID ARTHRITIS, UNSPECIFIED plan continue abx bone cx noted rest as per the team will need 6 weeks of iv abx
--- NOTE | 2019-12-06 13:36 | PN ---
Progress Note (short form) - Note Progress Note: Post op ampution left foot 3rd digit and partial met head resection Patient feels good Patient is keeping her foot elevated Will take off bandage Sunday Dressing dry and intact will follow
--- NOTE | 2019-12-06 22:03 | PN ---
Progress Note, Physician - Current Medication List Current Medications: Active Medications Acetaminophen (Tylenol -) 650 mg PO Q6H PRN PRN Reason: PAIN LEVEL 1 - 3 Aspirin (Asa -) 81 mg PO DAILY [facility] Last Admin: 12/06/19 10:33 Dose: 81 mg Atorvastatin Calcium (Lipitor -) 10 mg PO HS [facility] Last Admin: 12/05/19 22:29 Dose: 10 mg Atovaquone (Mepron -) 750 mg PO DAILY [facility] Last Admin: 12/06/19 10:34 Dose: 750 mg Budesonide/Formoterol Fumarate (Symbicort 160/4.5mcg -) 1 puff IH BID [facility] Last Admin: 12/06/19 10:35 Dose: 1 puff Heparin Sodium (Porcine) (Heparin -) 5,000 unit SQ BID [facility] Last Admin: 12/06/19 10:33 Dose: Not Given Ceftriaxone Sodium 1 gm/ (Dextrose) 50 mls @ 100 mls/hr IVPB DAILY [facility]; Protocol Last Admin: 12/06/19 10:32 Dose: 100 mls/hr Insulin Aspart (Novolog Vial Sliding Scale -) 1 vial SQ ACHS [facility]; Protocol Last Admin: 12/06/19 16:41 Dose: Not Given Nifedipine (Procardia Xl -) 30 mg PO BID [facility] Last Admin: 12/06/19 10:32 Dose: 30 mg Non-Formulary Medication (Mycophenolate Sodium [Myfortic]) 360 mg PO ASDIR [facility] Pantoprazole Sodium (Protonix -) 40 mg PO DAILY [facility] Last Admin: 12/06/19 10:33 Dose: 40 mg Prednisone (Deltasone -) 5 mg PO DAILY [facility] Last Admin: 12/06/19 10:34 Dose: 5 mg Sitagliptin Phosphate (Januvia -) 50 mg PO DAILY@0700 [facility] Last Admin: 12/06/19 06:14 Dose: 50 mg Tacrolimus (Prograf) 5 mg PO BID [facility] Last Admin: 12/06/19 10:34 Dose: 5 mg - Objective Vital Signs: Vital Signs Temperature 99 F 12/06/19 18:00 Pulse Rate 101 H 12/06/19 18:00 Respiratory Rate 20 12/06/19 18:00 Blood Pressure 127/54 L 12/06/19 18:00 O2 Sat by Pulse Oximetry (%) 98 12/06/19 09:00 Labs: CBC, BMP 12/05/19 07:45 12/05/19 07:45 INR, PTT INR 1.06 (0.83-1.09) 12/04/19 08:20 Problem List - Problems (1) Osteomyelitis Code(s): M86.9 - OSTEOMYELITIS, UNSPECIFIED (2) Kidney transplant recipient Code(s): Z94.0 - KIDNEY TRANSPLANT STATUS (3) Asthma Code(s): J45.909 - UNSPECIFIED ASTHMA, UNCOMPLICATED Qualifiers: Asthma severity: mild intermittent (4) Diabetes Code(s): E11.9 - TYPE 2 DIABETES MELLITUS WITHOUT COMPLICATIONS Qualifiers: Diabetes mellitus complication status: with diabetic arthropathy (5) Hyperlipidemia Code(s): E78.5 - HYPERLIPIDEMIA, UNSPECIFIED (6) Rheumatoid arthritis Code(s): M06.9 - RHEUMATOID ARTHRITIS, UNSPECIFIED
[2019-12-06] MEDS: ATORVASTATIN CA 10 MG TABLET (FP) PO SCH (22:06)
[2019-12-07] MEDS: INSULIN SLIDING SCALE (NOVOLOG) 1 VIAL SQ SCH ×4 (06:53→21:21)
[2019-12-07] MEDS: sitaGLIPtin PHOSPHATE 50 MG TABLET PO SCH (06:53)
[2019-12-07] MEDS ORDERED: DEXTROSE 5%-WATER - 50 ML IVPB ONE (10:21)
[2019-12-07] MEDS ORDERED: cefTRIAXone SODIUM 1 GM VIAL ONE (10:21)
[2019-12-07] MEDS: NIFEdipine E.R. 30 MG TABLET PO SCH ×2 (10:25→21:22)
[2019-12-07] MEDS: PANTOPRAZOLE 40 MG TABLET PO SCH (10:25)
[2019-12-07] MEDS: ASPIRIN 81 MG CHEWABLE TABLETS PO SCH (10:25)
[2019-12-07] MEDS: predniSONE 5 MG TABLET (UD) PO SCH (10:26)
[2019-12-07] MEDS: ATOVAQUONE 750 MG/5 ML (UNIT-DOSE PACKAGING) PO SCH (10:26)
[2019-12-07] MEDS: HEPARIN NA (PORCINE) 5,000 UNITS/ML 1ML VIAL SQ SCH ×2 (10:26→21:13)
[2019-12-07] MEDS: TACROLIMUS ANHYDROUS 5 MG CAPSULE PO SCH ×2 (10:26→21:22)
[2019-12-07] MEDS: CEFTRIAXONE 1 GM in DEXTROSE 5%-WATER - 50 ML IVPB SCH (10:26)
[2019-12-07] MEDS: BUDESONIDE/FORMETEROL FUMARATE 160/4.5 mcg INHALER IH SCH ×2 (10:30→21:23)
--- NOTE | 2019-12-07 11:02 | PN ---
Progress Note (short form) - Note Progress Note: Patient seen at bedside feeling good . Dressing dry and intact Post op amputation left foot 3rd digit and partial met head resection Wbc is normal and pathology came back staph aureus Left foot is healing well Betadine and dsd was applied Continue ivabx as per Infectious Dr Dr Kerr will follow
--- NOTE | 2019-12-07 12:22 | PN ---
Progress Note, Physician History of Present Illness: stable no new issues - Current Medication List Current Medications: Active Medications Acetaminophen (Tylenol -) 650 mg PO Q6H PRN PRN Reason: PAIN LEVEL 1 - 3 Aspirin (Asa -) 81 mg PO DAILY [facility] Last Admin: 12/07/19 10:25 Dose: 81 mg Atorvastatin Calcium (Lipitor -) 10 mg PO HS [facility] Last Admin: 12/06/19 22:06 Dose: 10 mg Atovaquone (Mepron -) 750 mg PO DAILY [facility] Last Admin: 12/07/19 10:26 Dose: 750 mg Budesonide/Formoterol Fumarate (Symbicort 160/4.5mcg -) 1 puff IH BID [facility] Last Admin: 12/07/19 10:30 Dose: 1 puff Heparin Sodium (Porcine) (Heparin -) 5,000 unit SQ BID [facility] Last Admin: 12/07/19 10:26 Dose: Not Given Ceftriaxone Sodium 1 gm/ (Dextrose) 50 mls @ 100 mls/hr IVPB DAILY [facility]; Protocol Last Admin: 12/07/19 10:26 Dose: 100 mls/hr Insulin Aspart (Novolog Vial Sliding Scale -) 1 vial SQ ACHS [facility]; Protocol Last Admin: 12/07/19 12:09 Dose: Not Given Nifedipine (Procardia Xl -) 30 mg PO BID [facility] Last Admin: 12/07/19 10:25 Dose: 30 mg Non-Formulary Medication (Mycophenolate Sodium [Myfortic]) 360 mg PO ASDIR [facility] Pantoprazole Sodium (Protonix -) 40 mg PO DAILY [facility] Last Admin: 12/07/19 10:25 Dose: 40 mg Prednisone (Deltasone -) 5 mg PO DAILY [facility] Last Admin: 12/07/19 10:26 Dose: 5 mg Sitagliptin Phosphate (Januvia -) 50 mg PO DAILY@0700 [facility] Last Admin: 12/07/19 06:53 Dose: 50 mg Tacrolimus (Prograf) 5 mg PO BID [facility] Last Admin: 12/07/19 10: Dose: 5 mg - Objective Vital Signs: Vital Signs Temperature 98.5 F 12/07/19 10:00 Pulse Rate 96 H 12/07/19 10:00 Respiratory Rate 20 12/07/19 10:00 Blood Pressure 115/70 12/07/19 10:00 O2 Sat by Pulse Oximetry (%) 100 12/06/19 21:00 Constitutional: Yes: No Distress, Calm Cardiovascular: Yes: S1, S2 Respiratory: Yes: Regular, CTA Bilaterally Gastrointestinal: Yes: Normal Bowel Sounds, Soft Musculoskeletal: Yes: WNL Extremities: Yes: WNL Neurological: Yes: Alert, Oriented Psychiatric: Yes: Alert, Oriented Labs: CBC, BMP 12/05/19 07:45 12/05/19 07:45 INR, PTT INR 1.06 (0.83-1.09) 12/04/19 08:20 Assessment/Plan Problem List - Problems (1) Osteomyelitis Code(s): M86.9 - OSTEOMYELITIS, UNSPECIFIED (2) Kidney transplant recipient Code(s): Z94.0 - KIDNEY TRANSPLANT STATUS (3) Asthma Code(s): J45.909 - UNSPECIFIED ASTHMA, UNCOMPLICATED Qualifiers: Asthma severity: mild intermittent (4) Diabetes Code(s): E11.9 - TYPE 2 DIABETES MELLITUS WITHOUT COMPLICATIONS Qualifiers: Diabetes mellitus complication status: with diabetic arthropathy (5) Hyperlipidemia Code(s): E78.5 - HYPERLIPIDEMIA, UNSPECIFIED (6) Rheumatoid arthritis Code(s): M06.9 - RHEUMATOID ARTHRITIS, UNSPECIFIED plan continue abx bone cx noted rest as per the team will need 6 weeks of iv abx
--- NOTE | 2019-12-07 20:46 | PN ---
Progress Note, Physician History of Present Illness: No new complaints - Current Medication List Current Medications: Active Medications Acetaminophen (Tylenol -) 650 mg PO Q6H PRN PRN Reason: PAIN LEVEL 1 - 3 Aspirin (Asa -) 81 mg PO DAILY [facility] Last Admin: 12/07/19 10:25 Dose: 81 mg Atorvastatin Calcium (Lipitor -) 10 mg PO HS [facility] Last Admin: 12/06/19 22:06 Dose: 10 mg Atovaquone (Mepron -) 750 mg PO DAILY [facility] Last Admin: 12/07/19 10:26 Dose: 750 mg Budesonide/Formoterol Fumarate (Symbicort 160/4.5mcg -) 1 puff IH BID [facility] Last Admin: 12/07/19 10:30 Dose: 1 puff Heparin Sodium (Porcine) (Heparin -) 5,000 unit SQ BID [facility] Last Admin: 12/07/19 10:26 Dose: Not Given Ceftriaxone Sodium 1 gm/ (Dextrose) 50 mls @ 100 mls/hr IVPB DAILY [facility]; Protocol Last Admin: 12/07/19 10:26 Dose: 100 mls/hr Insulin Aspart (Novolog Vial Sliding Scale -) 1 vial SQ ACHS [facility]; Protocol Last Admin: 12/07/19 16:38 Dose: Not Given Nifedipine (Procardia Xl -) 30 mg PO BID [facility] Last Admin: 12/07/19 10:25 Dose: 30 mg Non-Formulary Medication (Mycophenolate Sodium [Myfortic]) 360 mg PO ASDIR [facility] Pantoprazole Sodium (Protonix -) 40 mg PO DAILY [facility] Last Admin: 12/07/19 10:25 Dose: 40 mg Prednisone (Deltasone -) 5 mg PO DAILY [facility] Last Admin: 12/07/19 10:26 Dose: 5 mg Sitagliptin Phosphate (Januvia -) 50 mg PO DAILY@0700 [facility] Last Admin: 12/07/19 06:53 Dose: 50 mg Tacrolimus (Prograf) 5 mg PO BID [facility] Last Admin: 12/07/19 10:26 Dose: 5 mg - Objective Vital Signs: Vital Signs Temperature 98.8 F 12/07/19 20:18 Pulse Rate 93 H 12/07/19 20:18 Respiratory Rate 18 12/07/19 20:18 Blood Pressure 100/71 12/07/19 20:18 O2 Sat by Pulse Oximetry (%) 100 12/07/19 09:00 Cardiovascular: Yes: WNL, Regular Rate and Rhythm Respiratory: Yes: WNL, Regular, CTA Bilaterally Gastrointestinal: Yes: WNL, Normal Bowel Sounds, Soft Extremities: Yes: Other (Lt foot in dressing) Labs: CBC, BMP 12/05/19 07:45 12/05/19 07:45 INR, PTT INR 1.06 (0.83-1.09) 12/04/19 08:20 Problem List - Problems (1) Osteomyelitis Assessment/Plan: Cont IV vanco/ceftriaxone MRI showed osteo of 3rd toe S/P amputation/debridement/resection of 3rd lt toe Wound care as per podiatry Wound culture showed Staph aureus Pt will need 6 weeks of IV antibxs Code(s): M86.9 - OSTEOMYELITIS, UNSPECIFIED (2) Kidney transplant recipient Assessment/Plan: Renal consult noted Cont prednisone/myfortic/prograf Code(s): Z94.0 - KIDNEY TRANSPLANT STATUS (3) Asthma Assessment/Plan: Cont inhalers Code(s): J45.909 - UNSPECIFIED ASTHMA, UNCOMPLICATED Qualifiers: Asthma severity: mild intermittent (4) Diabetes Assessment/Plan: Cont januvia Cont sliding scale w/ coverage Code(s): E11.9 - TYPE 2 DIABETES MELLITUS WITHOUT COMPLICATIONS Qualifiers: Diabetes mellitus complication status: with diabetic arthropathy (5) Hyperlipidemia Assessment/Plan: Cont lipitor Code(s): E78.5 - HYPERLIPIDEMIA, UNSPECIFIED (6) Rheumatoid arthritis Code(s): M06.9 - RHEUMATOID ARTHRITIS, UNSPECIFIED
[2019-12-07] MEDS: ATORVASTATIN CA 10 MG TABLET (FP) PO SCH (21:22)
[2019-12-08] MEDS: INSULIN SLIDING SCALE (NOVOLOG) 1 VIAL SQ SCH ×4 (06:11→22:48)
[2019-12-08] MEDS: sitaGLIPtin PHOSPHATE 50 MG TABLET PO SCH (06:22)
[2019-12-08 09:01] LABS: BASO % 0.4 % (0-2.0); EOS % 1.5 % (0-4.5); HEMATOCRIT 33.9 % (32.4-45.2); HEMOGLOBIN 10.9 GM/dL (10.7-15.3); LYMPH % 7.8 % (8-40); MCH 30.5 pg (25.7-33.7); MCHC 32.3 g/dl (32.0-36.0); MEAN CELL VOLUME 94.4 fl (80-96); MEAN PLT VOLUME 8.6 fl (7.5-11.1); MONO % 8.5 % (3.8-10.2); NEUT % 81.8 % (42.8-82.8); PLATELET COUNT 366 K/MM3 (134-434); RBC 3.59 M/mm3 (3.60-5.2); RDW 13.4 % (11.6-15.6); WHITE BLOOD COUNT 7.9 K/mm3 (4.0-10.0)
[2019-12-08 09:28] LABS: BLOOD UREA NITROGEN 24.9 mg/dL (7-18); CALCIUM 9.6 mg/dL (8.5-10.1); CREATININE 1.3 mg/dL (0.55-1.3); POTASSIUM 4.4 mmol/L (3.5-5.1)
[2019-12-08] MEDS ORDERED: DEXTROSE 5%-WATER - 50 ML IVPB ONE (10:24)
[2019-12-08] MEDS ORDERED: cefTRIAXone SODIUM 1 GM VIAL ONE (10:24)
[2019-12-08] MEDS ORDERED: PT OWN MED DRAWER 7, Y5N ONE (10:24)
[2019-12-08] MEDS: NIFEdipine E.R. 30 MG TABLET PO SCH ×2 (10:47→22:49)
[2019-12-08] MEDS: HEPARIN NA (PORCINE) 5,000 UNITS/ML 1ML VIAL SQ SCH ×2 (10:47→22:51)
[2019-12-08] MEDS: ASPIRIN 81 MG CHEWABLE TABLETS PO SCH (10:47)
[2019-12-08] MEDS: PANTOPRAZOLE 40 MG TABLET PO SCH (10:47)
[2019-12-08] MEDS: ATOVAQUONE 750 MG/5 ML (UNIT-DOSE PACKAGING) PO SCH (10:48)
[2019-12-08] MEDS: TACROLIMUS ANHYDROUS 5 MG CAPSULE PO SCH ×2 (10:48→23:02)
[2019-12-08] MEDS: CEFTRIAXONE 1 GM in DEXTROSE 5%-WATER - 50 ML IVPB SCH (10:49)
[2019-12-08] MEDS: predniSONE 5 MG TABLET (UD) PO SCH (10:55)
[2019-12-08] MEDS: BUDESONIDE/FORMETEROL FUMARATE 160/4.5 mcg INHALER IH SCH ×2 (10:57→22:51)
--- NOTE | 2019-12-08 11:46 | PN ---
Progress Note, Physician History of Present Illness: stable no new issues - Current Medication List Current Medications: Active Medications Acetaminophen (Tylenol -) 650 mg PO Q6H PRN PRN Reason: PAIN LEVEL 1 - 3 Aspirin (Asa -) 81 mg PO DAILY [facility] Last Admin: 12/08/19 10:47 Dose: 81 mg Atorvastatin Calcium (Lipitor -) 10 mg PO HS [facility] Last Admin: 12/07/19 21:22 Dose: 10 mg Atovaquone (Mepron -) 750 mg PO DAILY [facility] Last Admin: 12/08/19 10:48 Dose: 750 mg Budesonide/Formoterol Fumarate (Symbicort 160/4.5mcg -) 1 puff IH BID [facility] Last Admin: 12/08/19 10:57 Dose: 1 puff Heparin Sodium (Porcine) (Heparin -) 5,000 unit SQ BID [facility] Last Admin: 12/08/19 10:47 Dose: Not Given Ceftriaxone Sodium 1 gm/ (Dextrose) 50 mls @ 100 mls/hr IVPB DAILY [facility]; Protocol Last Admin: 12/08/19 10:49 Dose: 100 mls/hr Insulin Aspart (Novolog Vial Sliding Scale -) 1 vial SQ ACHS [facility]; Protocol Last Admin: 12/08/19 11:45 Dose: Not Given Nifedipine (Procardia Xl -) 30 mg PO BID [facility] Last Admin: 12/08/19 10:47 Dose: 30 mg Non-Formulary Medication (Mycophenolate Sodium [Myfortic]) 360 mg PO ASDIR [facility] Pantoprazole Sodium (Protonix -) 40 mg PO DAILY [facility] Last Admin: 12/08/19 10:47 Dose: 40 mg Prednisone (Deltasone -) 5 mg PO DAILY [facility] Last Admin: 12/08/19 10:55 Dose: 5 mg Sitagliptin Phosphate (Januvia -) 50 mg PO DAILY@0700 [facility] Last Admin: 12/08/19 06:22 Dose: 50 mg Tacrolimus (Prograf) 5 mg PO BID [facility] Last Admin: 12/08/19 10:48 Dose: 5 mg - Objective Vital Signs: Vital Signs Temperature 98.6 F 12/08/19 06:00 Pulse Rate 90 12/08/19 10:00 Respiratory Rate 18 12/08/19 10:00 Blood Pressure 141/71 12/08/19 10:00 O2 Sat by Pulse Oximetry (%) 100 12/07/19 21:00 Constitutional: Yes: No Distress, Calm Cardiovascular: Yes: S1, S2 Respiratory: Yes: Regular, CTA Bilaterally Gastrointestinal: Yes: Normal Bowel Sounds, Soft Musculoskeletal: Yes: WNL Extremities: Yes: Other Wound/Incision: Yes: Clean/Dry, Dressing Dry and Intact Neurological: Yes: Alert, Oriented Psychiatric: Yes: Alert, Oriented Labs: CBC, BMP 12/08/19 08:00 12/08/19 08:00 INR, PTT INR 1.06 (0.83-1.09) 12/04/19 08:20 Assessment/Plan Problem List - Problems (1) Osteomyelitis Code(s): M86.9 - OSTEOMYELITIS, UNSPECIFIED (2) Kidney transplant recipient Code(s): Z94.0 - KIDNEY TRANSPLANT STATUS (3) Asthma Code(s): J45.909 - UNSPECIFIED ASTHMA, UNCOMPLICATED Qualifiers: Asthma severity: mild intermittent (4) Diabetes Code(s): E11.9 - TYPE 2 DIABETES MELLITUS WITHOUT COMPLICATIONS Qualifiers: Diabetes mellitus complication status: with diabetic arthropathy (5) Hyperlipidemia Code(s): E78.5 - HYPERLIPIDEMIA, UNSPECIFIED (6) Rheumatoid arthritis Code(s): M06.9 - RHEUMATOID ARTHRITIS, UNSPECIFIED plan continue abx bone cx noted 5 more weeks rest as per the team
--- NOTE | 2019-12-08 12:00 | PN ---
Progress Note (short form) - Note Progress Note: pod 4. no pain. vss, +packing intact, +granulation, +retention sutures intact, wbc=7.9 normal post op packing pulled. betadine dressing change daily. will follow. ivabx at home. ptr to [facility] upon dc.
--- NOTE | 2019-12-08 12:05 | PN ---
Progress Note (short form) - Note Progress Note: Renal follow up for Renal transplant Seen and examined at the bedside offers no acute complaints no fevers, chills, shortness of breath, N/V/D making urine on IV Abx Vital Signs Temperature 98.6 F 12/08/19 06:00 Pulse Rate 90 12/08/19 10:00 Respiratory Rate 18 12/08/19 10:00 Blood Pressure 141/71 12/08/19 10:00 O2 Sat by Pulse Oximetry (%) 100 12/07/19 21:00 Intake & Output 12/05/19 12/06/19 12/07/19 12/08/19 23:59 23:59 23:59 23:59 Intake Total 650 250 910 250 Output Total 2 2 Balance 650 248 908 250 NAD awake and alert neck supple RRR CTA soft NT/ND no LE edema foot in dressing CBC, BMP 12/08/19 08:00 12/08/19 08:00 Current Medications Acetaminophen (Tylenol -) 650 mg PO Q6H PRN PRN Reason: PAIN LEVEL 1 - 3 Aspirin (Asa -) 81 mg PO DAILY [facility] Last Admin: 12/08/19 10:47 Dose: 81 mg Atorvastatin Calcium (Lipitor -) 10 mg PO HS [facility] Last Admin: 12/07/19 21:22 Dose: 10 mg Atovaquone (Mepron -) 750 mg PO DAILY [facility] Last Admin: 12/08/19 10:48 Dose: 750 mg Budesonide/Formoterol Fumarate (Symbicort 160/4.5mcg -) 1 puff IH BID [facility] Last Admin: 12/08/19 10:57 Dose: 1 puff Heparin Sodium (Porcine) (Heparin -) 5,000 unit SQ BID [facility] Last Admin: 12/08/19 10:47 Dose: Not Given Ceftriaxone Sodium 1 gm/ (Dextrose) 50 mls @ 100 mls/hr IVPB DAILY [facility]; Protocol Last Admin: 12/08/19 10:49 Dose: 100 mls/hr Insulin Aspart (Novolog Vial Sliding Scale -) 1 vial SQ ACHS [facility]; Protocol Last Admin: 12/08/19 11:45 Dose: Not Given Nifedipine (Procardia Xl -) 30 mg PO BID [facility] Last Admin: 12/08/19 10:47 Dose: 30 mg Non-Formulary Medication (Mycophenolate Sodium [Myfortic]) 360 mg PO ASDIR [facility] Pantoprazole Sodium (Protonix -) 40 mg PO DAILY [facility] Last Admin: 12/08/19 10:47 Dose: 40 mg Prednisone (Deltasone -) 5 mg PO DAILY [facility] Last Admin: 12/08/19 10:55 Dose: 5 mg Sitagliptin Phosphate (Januvia -) 50 mg PO DAILY@0700 [facility] Last Admin: 12/08/19 06:22 Dose: 50 mg Tacrolimus (Prograf) 5 mg PO BID [facility] Last Admin: 12/08/19 10:48 Dose: 5 mg 73 year old woman with ESRD s/p renal transplant 11/2018 at [facility], NIDDM, hx of leoprosty, rheumatic fecver, hypertension presented with lower leg ulcer and found to have cellulitis and osteomylitis. 1. Osteomylitis of lower extremity r/p amputation 2. ESRD s/p Renal transplant 3. Hypertension 4. DM Renal function stable and at baseline continue tacrolimus 5mg BID,myfortic 360mg BID, Prednisone 5mg Daily Given Bone Cx showed osteomyliits will require abx for total of 6 weeks will need tunneled central line vs. PICC line for Abx To get treated with Ceftriaxone as per ID Wound care no signs of sepsis to warrant deescalation of immunosuppressive medications Stable for discharge from renal perspective. Thank you Ricky Chin DO
[2019-12-08 12:51] VITALS: BMI 29.9
--- NOTE | 2019-12-08 16:42 | PATH ---
Surgical Pathology Report Patient Name: LOUIS POPE [facility]. Rec. #: [id number] /Age/Gender: 1945 (Age: 73) / F Account: [id number] Location: [address] [place] [address]/[facility] Taken: 12/04/2019 Received: 12/04/2019 Reported: 12/08/2019 Physicians: Teena Vernon M.D. Specimen(s) Received A: NECROTIC TISSUE LEFT FOOT B: PROXIMAL PHALANX LEFT FOOT C: METATARSAL HEAD LEFT FOOT Clinical History Osteomyelitis Final Diagnosis A. NECROTIC TISSUE LEFT FOOT, BIOPSY: SKIN AND SUBCUTANEOUS TISSUE SHOWING ACUTE AND CHRONIC INFLAMMATION, GRANULATION TISSUE FORMATION AND RECENT HEMORRHAGE. PORTION OF BONE WITH ACUTE AND FOCALLY CHRONIC OSTEOMYELITIS. B. PROXIMAL PHALANX LEFT FOOT, EXCISION: PORTION OF BONE WITH ACUTE AND FOCALLY CHRONIC OSTEOMYELITIS, MARKED REMODELING AND REACTIVE CHANGE. C. METATARSAL HEAD LEFT FOOT, EXCISION: PORTION OF BONE WITH FOCAL ACUTE OSTEOMYELITIS, MARKED REMODELING AND REACTIVE CHANGE. Electronically Signed Nadege Taylor M.D. Gross Description A. Received in formalin labeled "necrotic tissue left foot," is a 2.5 x 1.5 x 0.4 cm aggregate of multiple unoriented portions of pickard-rosales skin and soft tissue. Freedom Of Information Officer sections are submitted in one cassette. B. Received in formalin labeled "proximal phalanx left foot osteomyelitis," is a 1.9 x 1.3 x 0.6 cm pickard, irregular portion of bone. The specimen is serially sectioned and entirely submitted in one cassette, following decalcification. C. Received in formalin labeled "metatarsal head left foot," is a 1.8 x 1.5 x 0.7 cm pickard-yellow, irregular portion of bone. The specimen is bisected and entirely submitted in one cassette, following decalcification. DL/12/05/2019 saudi/12/05/2019
--- NOTE | 2019-12-08 22:31 | PN ---
Progress Note, Physician History of Present Illness: No new complaints - Current Medication List Current Medications: Active Medications Acetaminophen (Tylenol -) 650 mg PO Q6H PRN PRN Reason: PAIN LEVEL 1 - 3 Aspirin (Asa -) 81 mg PO DAILY [facility] Last Admin: 12/08/19 10:47 Dose: 81 mg Atorvastatin Calcium (Lipitor -) 10 mg PO HS [facility] Last Admin: 12/07/19 21:22 Dose: 10 mg Atovaquone (Mepron -) 750 mg PO DAILY [facility] Last Admin: 12/08/19 10:48 Dose: 750 mg Budesonide/Formoterol Fumarate (Symbicort 160/4.5mcg -) 1 puff IH BID [facility] Last Admin: 12/08/19 10:57 Dose: 1 puff Heparin Sodium (Porcine) (Heparin -) 5,000 unit SQ BID [facility] Last Admin: 12/08/19 10:47 Dose: Not Given Ceftriaxone Sodium 1 gm/ (Dextrose) 50 mls @ 100 mls/hr IVPB DAILY [facility]; Protocol Last Admin: 12/08/19 10:49 Dose: 100 mls/hr Insulin Aspart (Novolog Vial Sliding Scale -) 1 vial SQ ACHS [facility]; Protocol Last Admin: 12/08/19 18:00 Dose: Not Given Nifedipine (Procardia Xl -) 30 mg PO BID [facility] Last Admin: 12/08/19 10:47 Dose: 30 mg Non-Formulary Medication (Mycophenolate Sodium [Myfortic]) 360 mg PO ASDIR [facility] Pantoprazole Sodium (Protonix -) 40 mg PO DAILY [facility] Last Admin: 12/08/19 10:47 Dose: 40 mg Prednisone (Deltasone -) 5 mg PO DAILY [facility] Last Admin: 12/08/19 10:55 Dose: 5 mg Sitagliptin Phosphate (Januvia -) 50 mg PO DAILY@0700 [facility] Last Admin: 12/08/19 06:22 Dose: 50 mg Tacrolimus (Prograf) 5 mg PO BID [facility] Last Admin: 12/08/19 10:48 Dose: 5 mg - Objective Vital Signs: Vital Signs Temperature 98 F 12/08/19 18:00 Pulse Rate 96 H 12/08/19 18:00 Respiratory Rate 18 12/08/19 18:00 Blood Pressure 123/64 12/08/19 18:00 O2 Sat by Pulse Oximetry (%) 100 12/08/19 09:00 Cardiovascular: Yes: WNL, Regular Rate and Rhythm Respiratory: Yes: WNL, Regular, CTA Bilaterally Gastrointestinal: Yes: WNL, Normal Bowel Sounds, Soft Extremities: Yes: Other (Lt foot w/ dry dressing) Labs: CBC, BMP 12/08/19 08:00 12/08/19 08:00 INR, PTT INR 1.06 (0.83-1.09) 12/04/19 08:20 Problem List - Problems (1) Osteomyelitis Assessment/Plan: Cont IV vanco/ceftriaxone MRI showed osteo of 3rd toe S/P amputation/debridement/resection of 3rd lt toe Wound care as per podiatry Wound culture showed Staph aureus Pt will need 6 weeks of IV antibxs Dressing changed as per podiatry DC planning for am PICC line and outpt antibxs Code(s): M86.9 - OSTEOMYELITIS, UNSPECIFIED (2) Kidney transplant recipient Assessment/Plan: Renal consult noted Cont prednisone/myfortic/prograf Code(s): Z94.0 - KIDNEY TRANSPLANT STATUS (3) Asthma Assessment/Plan: Cont inhalers Code(s): J45.909 - UNSPECIFIED ASTHMA, UNCOMPLICATED Qualifiers: Asthma severity: mild intermittent (4) Diabetes Assessment/Plan: Cont januvia Cont sliding scale w/ coverage Code(s): E11.9 - TYPE 2 DIABETES MELLITUS WITHOUT COMPLICATIONS Qualifiers: Diabetes mellitus complication status: with diabetic arthropathy (5) Hyperlipidemia Assessment/Plan: Cont lipitor Code(s): E78.5 - HYPERLIPIDEMIA, UNSPECIFIED (6) Rheumatoid arthritis Code(s): M06.9 - RHEUMATOID ARTHRITIS, UNSPECIFIED
[2019-12-08] MEDS: ATORVASTATIN CA 10 MG TABLET (FP) PO SCH (22:48)
[2019-12-08] MEDS: TACROLIMUS ANHYDROUS 1 MG CAPSULE PO SCH (23:03)
[2019-12-09] MEDS: INSULIN SLIDING SCALE (NOVOLOG) 1 VIAL SQ SCH ×3 (06:44→17:26)
[2019-12-09] MEDS: sitaGLIPtin PHOSPHATE 50 MG TABLET PO SCH (06:44)
[2019-12-09] MEDS ORDERED: DEXTROSE 5%-WATER - 50 ML IVPB ONE (09:21)
[2019-12-09] MEDS ORDERED: PT OWN MED DRAWER 7, Y5N ONE (09:21)
[2019-12-09] MEDS ORDERED: cefTRIAXone SODIUM 1 GM VIAL ONE (09:21)
[2019-12-09] MEDS: NIFEdipine E.R. 30 MG TABLET PO SCH (09:34)
[2019-12-09] MEDS: ASPIRIN 81 MG CHEWABLE TABLETS PO SCH (09:34)
[2019-12-09] MEDS: ATOVAQUONE 750 MG/5 ML (UNIT-DOSE PACKAGING) PO SCH (09:34)
[2019-12-09] MEDS: PANTOPRAZOLE 40 MG TABLET PO SCH (09:34)
[2019-12-09] MEDS: CEFTRIAXONE 1 GM in DEXTROSE 5%-WATER - 50 ML IVPB SCH (09:35)
[2019-12-09] MEDS: predniSONE 5 MG TABLET (UD) PO SCH (09:35)
[2019-12-09] MEDS: HEPARIN NA (PORCINE) 5,000 UNITS/ML 1ML VIAL SQ SCH (09:35)
[2019-12-09] MEDS: BUDESONIDE/FORMETEROL FUMARATE 160/4.5 mcg INHALER IH SCH (09:36)
[2019-12-09] MEDS: TACROLIMUS ANHYDROUS 1 MG CAPSULE PO SCH (09:37)
--- NOTE | 2019-12-09 11:15 | PN ---
Progress Note (short form) - Note Progress Note: pod 5. no pain. vss, +granulation, +retention sutures intact normal post op betadine dressing change daily. will follow. ivabx at home. ptr to [facility] and home upon dc.
--- NOTE | 2019-12-09 11:55 | PN ---
Progress Note (short form) - Note Progress Note: Renal follow up for Renal transplant Seen and examined at the bedside offers no acute complaints no fevers, chills, shortness of breath, N/V/D for discharge home today Vital Signs Temperature 98.5 F 12/09/19 09:48 Pulse Rate 93 H 12/09/19 09:48 Respiratory Rate 16 12/09/19 09:48 Blood Pressure 124/79 12/09/19 09:48 O2 Sat by Pulse Oximetry (%) 100 12/08/19 21:00 Intake & Output 12/06/19 12/07/19 12/08/19 12/09/19 23:59 23:59 23:59 23:59 Intake Total 250 910 250 240 Output Total 2 2 Balance 248 908 250 240 Weight 84.368 kg NAD awake and alert neck supple RRR CTA soft NT/ND no LE edema foot in dressing CBC, BMP 12/08/19 08:00 12/08/19 08:00 Current Medications Acetaminophen (Tylenol -) 650 mg PO Q6H PRN PRN Reason: PAIN LEVEL 1 - 3 Aspirin (Asa -) 81 mg PO DAILY [facility] Last Admin: 12/09/19 09:34 Dose: 81 mg Atorvastatin Calcium (Lipitor -) 10 mg PO HS [facility] Last Admin: 12/08/19 22:48 Dose: 10 mg Atovaquone (Mepron -) 750 mg PO DAILY [facility] Last Admin: 12/09/19 09:34 Dose: 750 mg Budesonide/Formoterol Fumarate (Symbicort 160/4.5mcg -) 1 puff IH BID [facility] Last Admin: 12/09/19 09:36 Dose: 1 puff Heparin Sodium (Porcine) (Heparin -) 5,000 unit SQ BID [facility] Last Admin: 12/09/19 09:35 Dose: Not Given Ceftriaxone Sodium 1 gm/ (Dextrose) 50 mls @ 100 mls/hr IVPB DAILY [facility]; Protocol Last Admin: 12/09/19 09:35 Dose: 100 mls/hr Insulin Aspart (Novolog Vial Sliding Scale -) 1 vial SQ ACHS [facility]; Protocol Last Admin: 12/09/19 06:44 Dose: Not Given Nifedipine (Procardia Xl -) 30 mg PO BID [facility] Last Admin: 12/09/19 09:34 Dose: 30 mg Non-Formulary Medication (Mycophenolate Sodium [Myfortic]) 360 mg PO ASDIR [facility] Pantoprazole Sodium (Protonix -) 40 mg PO DAILY [facility] Last Admin: 12/09/19 09:34 Dose: 40 mg Prednisone (Deltasone -) 5 mg PO DAILY [facility] Last Admin: 12/09/19 09:35 Dose: 5 mg Sitagliptin Phosphate (Januvia -) 50 mg PO DAILY@0700 [facility] Last Admin: 12/09/19 06:44 Dose: 50 mg Tacrolimus (Prograf) 5 mg PO BID [facility] Last Admin: 12/09/19 09:37 Dose: 5 mg 73 year old woman with ESRD s/p renal transplant 11/2018 at [facility], NIDDM, hx of leoprosty, rheumatic fecver, hypertension presented with lower leg ulcer and found to have cellulitis and osteomylitis. 1. Osteomylitis of lower extremity r/p amputation 2. ESRD s/p Renal transplant 3. Hypertension 4. DM Renal function stable and at baseline continue tacrolimus 5mg BID,myfortic 360mg BID, Prednisone 5mg Daily upon discharge Given Bone Cx showed osteomyliits will require abx for total of 6 weeks t To get treated with Ceftriaxone as per ID Wound care no signs of sepsis to warrant deescalation of immunosuppressive medications Stable for discharge from renal perspective, to follow up in our office for monitoring of renal function. Thank you Ricky Chin DO
--- NOTE | 2019-12-09 12:11 | PN ---
Progress Note, Physician History of Present Illness: stable no new issues - Current Medication List Current Medications: Active Medications Acetaminophen (Tylenol -) 650 mg PO Q6H PRN PRN Reason: PAIN LEVEL 1 - 3 Aspirin (Asa -) 81 mg PO DAILY [facility] Last Admin: 12/09/19 09:34 Dose: 81 mg Atorvastatin Calcium (Lipitor -) 10 mg PO HS [facility] Last Admin: 12/08/19 22:48 Dose: 10 mg Atovaquone (Mepron -) 750 mg PO DAILY [facility] Last Admin: 12/09/19 09:34 Dose: 750 mg Budesonide/Formoterol Fumarate (Symbicort 160/4.5mcg -) 1 puff IH BID [facility] Last Admin: 12/09/19 09:36 Dose: 1 puff Heparin Sodium (Porcine) (Heparin -) 5,000 unit SQ BID [facility] Last Admin: 12/09/19 09:35 Dose: Not Given Ceftriaxone Sodium 1 gm/ (Dextrose) 50 mls @ 100 mls/hr IVPB DAILY [facility]; Protocol Last Admin: 12/09/19 09:35 Dose: 100 mls/hr Insulin Aspart (Novolog Vial Sliding Scale -) 1 vial SQ ACHS [facility]; Protocol Last Admin: 12/09/19 11:58 Dose: Not Given Nifedipine (Procardia Xl -) 30 mg PO BID [facility] Last Admin: 12/09/19 09:34 Dose: 30 mg Non-Formulary Medication (Mycophenolate Sodium [Myfortic]) 360 mg PO ASDIR [facility] Pantoprazole Sodium (Protonix -) 40 mg PO DAILY [facility] Last Admin: 12/09/19 09:34 Dose: 40 mg Prednisone (Deltasone -) 5 mg PO DAILY [facility] Last Admin: 12/09/19 09:35 Dose: 5 mg Sitagliptin Phosphate (Januvia -) 50 mg PO DAILY@0700 [facility] Last Admin: 12/09/19 06:44 Dose: 50 mg Tacrolimus (Prograf) 5 mg PO BID [facility] Last Admin: 12/09/19 09:37 Dose: 5 mg - Objective Vital Signs: Vital Signs Temperature 98.5 F 12/09/19 09:48 Pulse Rate 93 H 12/09/19 09:48 Respiratory Rate 16 12/09/19 09:48 Blood Pressure 124/79 12/09/19 09:48 O2 Sat by Pulse Oximetry (%) 100 12/08/19 21:00 Constitutional: Yes: No Distress, Calm Cardiovascular: Yes: S1, S2 Respiratory: Yes: Regular, CTA Bilaterally Gastrointestinal: Yes: Normal Bowel Sounds, Soft Musculoskeletal: Yes: WNL Extremities: Yes: Other Wound/Incision: Yes: Dressing Dry and Intact Neurological: Yes: Alert, Oriented Psychiatric: Yes: Alert, Oriented Labs: CBC, BMP 12/08/19 08:00 12/08/19 08:00 INR, PTT INR 1.06 (0.83-1.09) 12/04/19 08:20 Assessment/Plan Problem List - Problems (1) Osteomyelitis Code(s): M86.9 - OSTEOMYELITIS, UNSPECIFIED (2) Kidney transplant recipient Code(s): Z94.0 - KIDNEY TRANSPLANT STATUS (3) Asthma Code(s): J45.909 - UNSPECIFIED ASTHMA, UNCOMPLICATED Qualifiers: Asthma severity: mild intermittent (4) Diabetes Code(s): E11.9 - TYPE 2 DIABETES MELLITUS WITHOUT COMPLICATIONS Qualifiers: Diabetes mellitus complication status: with diabetic arthropathy (5) Hyperlipidemia Code(s): E78.5 - HYPERLIPIDEMIA, UNSPECIFIED (6) Rheumatoid arthritis Code(s): M06.9 - RHEUMATOID ARTHRITIS, UNSPECIFIED plan continue abx bone cx noted 5 more weeks rest as per the team
[2019-12-09 16:10] VITALS: BP 131/69; PULSE 98; TEMP 97.8
--- NOTE | 2019-12-22 14:59 | OP ---
DATE OF OPERATION: 12/04/2019 PREOPERATIVE DIAGNOSIS: Osteomyelitis with chronic wound and abscess, left foot over the 3rd metatarsophalangeal joint. POSTOPERATIVE DIAGNOSIS: Osteomyelitis with chronic wound and abscess, left foot over the 3rd metatarsophalangeal joint. PROCEDURES: 1. Amputation of the proximal phalanx with partial metatarsal head resection of the left 3rd metatarsophalangeal joint. 2. Revision of wound and 0.25-inch iodoform packing with retention sutures. SURGEON: Mirtha Kerr DPM [employer] MAKER: Yvon Bowden MD DESCRIPTION OF PROCEDURE: After noting all preoperative vital signs were within normal limits and after the surgical consent was signed and witnessed, the patient was brought to the OR, placed on the table in supine position. Once the patient was on the table, a local infiltrate was given proximally to 3rd metatarsophalangeal joint. Once this was done, the foot was then prepped and draped in the usual sterile fashion. Attention was then directed to the 3rd metatarsophalangeal joint where a stump of her toe was remaining. Utilizing a Baker-type incision, the incision was deepened to the level of the 3rd metatarsophalangeal joint. Once the 3rd metatarsophalangeal joint was exposed, the proximal phalanx was identified. It was resected and sent down to Pathology. At this time, utilizing a sagittal saw going from dorsal to plantar, the distal 1/4 of the 3rd metatarsa was resected and sent down to Pathology. Once this was done, the area was explored. The plantar wound was excised and sent down to Pathology as well. A flush was then done with copious amounts of sterile saline that had antibiotic irrigation added to it. Once this was done retention sutures were put into place using 4-0 nylon in a simple, interrupted suture fashion. The proximal remaining area was packed with 0.25-inch iodoform gauze packing. Once this was done, Xeroform gauze, sterile gauze, and a Kerlix dressing were applied with an Alejo bandage. The patient tolerated the anesthesia and the procedure well. Patient returned to recovery room vital signs stable and vascular status intact. DANA Lino/[id number] [facility]
== END 2019-12-09 18:05 | disposition home or self-care (01) | DRG 617 ==
LOC: JER 12:57 → JERBED 14:48 → J5S 12-02 02:08
PROVIDERS: ADMIT Internal Medicine; ATTEND Internal Medicine
PROC: 0Y6N0ZC Detachment at Left Foot, Partial 3rd Ray, Open Approach (ICD-10-PCS; principal; 2019-12-04 09:00)
PROC: 0JBR0ZZ Excision of Left Foot Subcutaneous Tissue and Fascia, Open Approach (ICD-10-PCS; 2019-12-04 09:00)
PROC: 02HV33Z Insertion of Infusion Device into Superior Vena Cava, Percutaneous Approach (ICD-10-PCS; 2019-12-09)
DX: E11.69 Type 2 diabetes mellitus with other specified complication (principal); M86.172 Other acute osteomyelitis, left ankle and foot; Z94.0 Kidney transplant status; L03.116 Cellulitis of left lower limb; M86.672 Other chronic osteomyelitis, left ankle and foot; E11.621 Type 2 diabetes mellitus with foot ulcer; J45.909 Unspecified asthma, uncomplicated; E78.5 Hyperlipidemia, unspecified; M06.9 Rheumatoid arthritis, unspecified; I10 Essential (primary) hypertension; K21.9 Gastro-esophageal reflux disease without esophagitis
CPT/HCPCS: 36415; 36558; 73630-TC-LT; 73718-TC-LT; 77001-TC-FY; 80048; 80053; 82962; 83735; 84100; 85025; 85610; 86140; 87040; 87070; 87075; 87186; 87205; 88304-TC; 88305-TC; 88311-TC; 94760; 99284-25; C1751; J1644

== ENCOUNTER 2019-12-10 08:44 | Day surgery (SDC) | payer OTHER ==
[2019-12-10] MEDS ORDERED: CEFTRIAXONE 2 GM in DEXTROSE 5%-WATER 100 ML IVPB ONE (09:00)
[2019-12-10] MEDS ORDERED: DEXTROSE 5%-WATER 100 ML IVPB ONE (09:20)
[2019-12-10 10:40] VITALS: TEMP 97.9
[2019-12-10 11:03] VITALS: BP 146/64; PULSE 96
== END 2019-12-10 10:55 | disposition home or self-care (01) ==
LOC: JINFUSION 08:44
PROVIDERS: ATTEND Internal Medicine Infectious Disease
DX: M86.172 Other acute osteomyelitis, left ankle and foot (principal); L03.116 Cellulitis of left lower limb; E11.621 Type 2 diabetes mellitus with foot ulcer
CPT/HCPCS: 96365

== ENCOUNTER 2019-12-11 07:50 | Day surgery (SDC) | payer OTHER ==
[2019-12-11] MEDS ORDERED: DEXTROSE 5%-WATER 100 ML IVPB ONE (08:12)
[2019-12-11 08:37] VITALS: TEMP 98.7
[2019-12-11] MEDS ORDERED: CEFTRIAXONE 2 GM in DEXTROSE 5%-WATER 100 ML IVPB ONE (09:00)
[2019-12-11 10:05] VITALS: BP 137/83; PULSE 101
== END 2019-12-11 09:30 | disposition home or self-care (01) ==
LOC: JINFUSION 07:50
PROVIDERS: ATTEND Internal Medicine Infectious Disease
DX: M86.172 Other acute osteomyelitis, left ankle and foot (principal); E11.621 Type 2 diabetes mellitus with foot ulcer; L03.116 Cellulitis of left lower limb
CPT/HCPCS: 11042; 15275; 96365; Q4196

== ENCOUNTER 2019-12-12 07:10 | Day surgery (SDC) | payer OTHER ==
[2019-12-12 07:51] VITALS: TEMP 97.6
[2019-12-12] MEDS ORDERED: CEFTRIAXONE 2 GM in DEXTROSE 5%-WATER 100 ML IVPB ONE (10:00)
[2019-12-12 11:16] VITALS: BP 126/68; PULSE 100
== END 2019-12-12 08:50 | disposition home or self-care (01) ==
LOC: JINFUSION 07:10
PROVIDERS: ATTEND Internal Medicine Infectious Disease
DX: M86.172 Other acute osteomyelitis, left ankle and foot (principal); L03.116 Cellulitis of left lower limb; E11.621 Type 2 diabetes mellitus with foot ulcer
CPT/HCPCS: 96365

== ENCOUNTER 2019-12-13 07:29 | Day surgery (SDC) | payer OTHER ==
[2019-12-13] MEDS ORDERED: CEFTRIAXONE 2 GM in DEXTROSE 5%-WATER 100 ML IVPB ONE (08:15)
[2019-12-13] MEDS ORDERED: DEXTROSE 5%-WATER 100 ML IVPB ONE (08:17)
[2019-12-13 10:17] VITALS: BP 136/75; PULSE 92; TEMP 98.7
== END 2019-12-13 09:20 | disposition home or self-care (01) ==
LOC: JINFUSION 07:29 → J7W 07:34 → JINFUSION 09:20
PROVIDERS: ATTEND Internal Medicine Infectious Disease
DX: M86.172 Other acute osteomyelitis, left ankle and foot (principal); L03.116 Cellulitis of left lower limb; E11.621 Type 2 diabetes mellitus with foot ulcer
CPT/HCPCS: 96365

== ENCOUNTER 2019-12-14 07:09 | Day surgery (SDC) | payer OTHER ==
[2019-12-14] MEDS ORDERED: CEFTRIAXONE 2 GM in DEXTROSE 5%-WATER 100 ML IVPB ONE (08:00)
[2019-12-14] MEDS ORDERED: DEXTROSE 5%-WATER 100 ML IVPB ONE (08:02)
[2019-12-14 12:37] VITALS: TEMP 98.2
[2019-12-14 12:42] VITALS: BP 152/83; PULSE 87
== END 2019-12-14 09:15 | disposition home or self-care (01) ==
LOC: JINFUSION 07:09 → J7W 07:09 → JINFUSION 09:15
PROVIDERS: ATTEND Internal Medicine Infectious Disease
DX: M86.172 Other acute osteomyelitis, left ankle and foot (principal); L03.116 Cellulitis of left lower limb; E11.621 Type 2 diabetes mellitus with foot ulcer
CPT/HCPCS: 96365

== ENCOUNTER 2019-12-15 10:28 | Day surgery (SDC) | payer OTHER ==
[2019-12-15] MEDS ORDERED: DEXTROSE 5%-WATER 100 ML IVPB ONE (11:06)
[2019-12-15] MEDS ORDERED: CEFTRIAXONE 2 GM in DEXTROSE 5%-WATER 100 ML IVPB ONE (11:30)
[2019-12-15 12:08] VITALS: BP 121/70; PULSE 102; TEMP 98.4
== END 2019-12-15 12:09 | disposition home or self-care (01) ==
LOC: JINFUSION 10:28 → J7W 10:30 → JINFUSION 12:09
PROVIDERS: ATTEND Internal Medicine Infectious Disease
DX: M86.172 Other acute osteomyelitis, left ankle and foot (principal); L03.116 Cellulitis of left lower limb; E11.621 Type 2 diabetes mellitus with foot ulcer
CPT/HCPCS: 82962; 96365; G0277

== ENCOUNTER 2019-12-16 06:43 | Day surgery (SDC) | payer OTHER ==
[2019-12-16] MEDS ORDERED: CEFTRIAXONE 2 GM in DEXTROSE 5%-WATER 100 ML IVPB ONE (08:00)
[2019-12-16] MEDS ORDERED: DEXTROSE 5%-WATER 100 ML IVPB ONE (08:17)
[2019-12-16 10:20] VITALS: BP 154/59; PULSE 83; TEMP 98.3
== END 2019-12-16 12:21 | disposition home or self-care (01) ==
LOC: JINFUSION 06:43 → J7W 06:45 → JINFUSION 12:21
PROVIDERS: ATTEND Internal Medicine Infectious Disease
DX: M86.172 Other acute osteomyelitis, left ankle and foot (principal); L03.116 Cellulitis of left lower limb; E11.621 Type 2 diabetes mellitus with foot ulcer
CPT/HCPCS: 82962; 96365; G0277

== ENCOUNTER 2019-12-17 07:20 | Day surgery (SDC) | payer OTHER ==
[2019-12-17] MEDS ORDERED: CEFTRIAXONE 2 GM in DEXTROSE 5%-WATER 100 ML IVPB ONE (08:30)
[2019-12-17] MEDS ORDERED: DEXTROSE 5%-WATER 100 ML IVPB ONE (09:27)
[2019-12-17 10:28] VITALS: TEMP 98.4
[2019-12-17 10:44] VITALS: BP 160/76; PULSE 92
== END 2019-12-17 10:45 | disposition home or self-care (01) ==
LOC: JINFUSION 07:20 → J7W 07:22 → JINFUSION 10:45
PROVIDERS: ATTEND Internal Medicine Infectious Disease
DX: M86.172 Other acute osteomyelitis, left ankle and foot (principal); L03.116 Cellulitis of left lower limb; E11.621 Type 2 diabetes mellitus with foot ulcer
CPT/HCPCS: 36415; 82962; 85651; 86140; 96365; G0277

== ENCOUNTER 2019-12-18 08:51 | Day surgery (SDC) | payer OTHER ==
[2019-12-18] MEDS ORDERED: CEFTRIAXONE 2 GM in DEXTROSE 5%-WATER 100 ML IVPB ONE (09:45)
[2019-12-18] MEDS ORDERED: DEXTROSE 5%-WATER 100 ML IVPB ONE (09:49)
[2019-12-18 10:54] VITALS: BP 138/59; PULSE 87; TEMP 98.2
== END 2019-12-18 11:30 | disposition home or self-care (01) ==
LOC: JINFUSION 08:51 → J7W 08:51 → JINFUSION 11:30
PROVIDERS: ATTEND Internal Medicine Infectious Disease
DX: M86.172 Other acute osteomyelitis, left ankle and foot (principal); L03.116 Cellulitis of left lower limb; E11.621 Type 2 diabetes mellitus with foot ulcer
CPT/HCPCS: 82962; 96365; G0277; G0463-25

== ENCOUNTER 2019-12-19 12:23 | Day surgery (SDC) | payer OTHER ==
[2019-12-19] MEDS ORDERED: CEFTRIAXONE 2 GM in DEXTROSE 5%-WATER 100 ML IVPB ONE (12:45)
[2019-12-19] MEDS ORDERED: DEXTROSE 5%-WATER 100 ML IVPB ONE (12:45)
[2019-12-19 12:56] VITALS: TEMP 99
[2019-12-19 15:18] VITALS: BP 143/80; PULSE 97
== END 2019-12-19 13:47 | disposition home or self-care (01) ==
LOC: JINFUSION 12:23 → J7W 12:24 → JINFUSION 13:47
PROVIDERS: ATTEND Internal Medicine Infectious Disease
DX: M86.172 Other acute osteomyelitis, left ankle and foot (principal); L03.116 Cellulitis of left lower limb; E11.621 Type 2 diabetes mellitus with foot ulcer; L97.522 Non-pressure chronic ulcer of other part of left foot with fat layer exposed; Z79.4 Long term (current) use of insulin
CPT/HCPCS: 82962; 96365; G0277

== ENCOUNTER 2019-12-20 08:26 | Day surgery (SDC) | payer OTHER ==
[2019-12-20] MEDS ORDERED: CEFTRIAXONE 2 GM in DEXTROSE 5%-WATER 100 ML IVPB ONE (09:00)
[2019-12-20] MEDS ORDERED: DEXTROSE 5%-WATER 100 ML IVPB ONE (09:02)
[2019-12-20 15:38] VITALS: TEMP 98.1
[2019-12-20 15:42] VITALS: BP 140/53; PULSE 86
== END 2019-12-20 10:00 | disposition home or self-care (01) ==
LOC: JINFUSION 08:26 → J7W 08:27 → JINFUSION 10:00
PROVIDERS: ATTEND Internal Medicine Infectious Disease
DX: M86.172 Other acute osteomyelitis, left ankle and foot (principal); L03.116 Cellulitis of left lower limb; E11.621 Type 2 diabetes mellitus with foot ulcer
CPT/HCPCS: 96365

== ENCOUNTER 2019-12-21 08:25 | Day surgery (SDC) | payer OTHER ==
[2019-12-21] MEDS ORDERED: CEFTRIAXONE 2 GM in DEXTROSE 5%-WATER 100 ML IVPB ONE (09:00)
[2019-12-21] MEDS ORDERED: DEXTROSE 5%-WATER 100 ML IVPB ONE (09:21)
[2019-12-21 18:13] VITALS: BP 141/79; PULSE 92; TEMP 98.1
== END 2019-12-21 10:15 | disposition home or self-care (01) ==
LOC: J7W 08:25 → JINFUSION 08:25
PROVIDERS: ATTEND Internal Medicine Infectious Disease
DX: M86.172 Other acute osteomyelitis, left ankle and foot (principal); L03.116 Cellulitis of left lower limb; E11.621 Type 2 diabetes mellitus with foot ulcer
CPT/HCPCS: 96365

== ENCOUNTER 2019-12-22 07:15 | Day surgery (SDC) | payer OTHER ==
[2019-12-22] MEDS ORDERED: CEFTRIAXONE 2 GM in DEXTROSE 5%-WATER 100 ML IVPB ONE (11:45)
[2019-12-22] MEDS ORDERED: DEXTROSE 5%-WATER 100 ML IVPB ONE (11:46)
[2019-12-22 12:44] VITALS: BP 149/78; PULSE 100; TEMP 98.6
== END 2019-12-22 12:51 | disposition home or self-care (01) ==
LOC: JINFUSION 07:15 → J7W 07:17 → JINFUSION 12:51
PROVIDERS: ATTEND Internal Medicine Infectious Disease
DX: E11.621 Type 2 diabetes mellitus with foot ulcer (principal); M86.172 Other acute osteomyelitis, left ankle and foot; L03.116 Cellulitis of left lower limb
CPT/HCPCS: 82962; 96365; G0277

== ENCOUNTER 2019-12-23 07:07 | Day surgery (SDC) | payer OTHER ==
[2019-12-23 10:43] VITALS: BP 135/73; PULSE 93; TEMP 98.3
[2019-12-23] MEDS ORDERED: DEXTROSE 5%-WATER 100 ML IVPB ONE (10:54)
[2019-12-23] MEDS ORDERED: CEFTRIAXONE 2 GM in DEXTROSE 5%-WATER 100 ML IVPB ONE (11:00)
== END 2019-12-23 12:00 | disposition home or self-care (01) ==
LOC: J7W 07:07 → JINFUSION 07:07 → J7W 10:21 → JINFUSION 12:00
PROVIDERS: ATTEND Internal Medicine Infectious Disease
DX: E11.621 Type 2 diabetes mellitus with foot ulcer (principal); M86.172 Other acute osteomyelitis, left ankle and foot; L03.116 Cellulitis of left lower limb; L97.522 Non-pressure chronic ulcer of other part of left foot with fat layer exposed; Z79.4 Long term (current) use of insulin
CPT/HCPCS: 82962; 96365; G0277

== ENCOUNTER 2019-12-24 07:03 | Day surgery (SDC) | payer OTHER ==
[2019-12-24 10:46] VITALS: TEMP 98.3
[2019-12-24] MEDS ORDERED: DEXTROSE 5%-WATER 100 ML IVPB ONE (11:45)
[2019-12-24] MEDS ORDERED: CEFTRIAXONE 2 GM in DEXTROSE 5%-WATER 100 ML IVPB ONE (11:45)
[2019-12-24 12:45] VITALS: BP 143/66; PULSE 84
== END 2019-12-24 12:46 | disposition home or self-care (01) ==
LOC: JINFUSION 07:03 → J7W 07:04 → JINFUSION 12:46
PROVIDERS: ATTEND Internal Medicine Infectious Disease
DX: E11.621 Type 2 diabetes mellitus with foot ulcer (principal); M86.172 Other acute osteomyelitis, left ankle and foot; L03.116 Cellulitis of left lower limb
CPT/HCPCS: 82962; 96365; G0277

== ENCOUNTER 2019-12-25 10:19 | Day surgery (SDC) | payer OTHER ==
[2019-12-25] MEDS ORDERED: CEFTRIAXONE 2 GM in DEXTROSE 5%-WATER 100 ML IVPB ONE (12:00)
[2019-12-25] MEDS ORDERED: DEXTROSE 5%-WATER 100 ML IVPB ONE (12:22)
[2019-12-25 14:22] VITALS: BP 124/49; PULSE 92; TEMP 98.1
== END 2019-12-25 14:24 | disposition home or self-care (01) ==
LOC: JINFUSION 10:19 → J7W 10:20 → JINFUSION 14:24
PROVIDERS: ATTEND Internal Medicine Infectious Disease
DX: E11.621 Type 2 diabetes mellitus with foot ulcer (principal); M86.172 Other acute osteomyelitis, left ankle and foot; L03.116 Cellulitis of left lower limb; L97.522 Non-pressure chronic ulcer of other part of left foot with fat layer exposed; Z79.4 Long term (current) use of insulin
CPT/HCPCS: 11042; 15275; 36415; 82962; 85651; 86140; 96365; G0277; Q4196

== ENCOUNTER 2019-12-26 07:42 | Day surgery (SDC) | payer OTHER ==
[2019-12-26] MEDS ORDERED: CEFTRIAXONE 2 GM in DEXTROSE 5%-WATER 100 ML IVPB ONE (10:15)
[2019-12-26] MEDS ORDERED: DEXTROSE 5%-WATER 100 ML IVPB ONE (10:35)
[2019-12-26 12:09] VITALS: BP 112/80; PULSE 85; TEMP 98
== END 2019-12-26 11:55 | disposition home or self-care (01) ==
LOC: JINFUSION 07:42 → J7W 07:44 → JINFUSION 11:55
PROVIDERS: ATTEND Internal Medicine Infectious Disease
DX: E11.621 Type 2 diabetes mellitus with foot ulcer (principal); M86.172 Other acute osteomyelitis, left ankle and foot; L03.116 Cellulitis of left lower limb
CPT/HCPCS: 82962; 96365; G0277

== ENCOUNTER 2019-12-27 09:11 | Day surgery (SDC) | payer OTHER ==
[2019-12-27] MEDS ORDERED: CEFTRIAXONE 2 GM in DEXTROSE 5%-WATER 100 ML IVPB ONE (09:30)
[2019-12-27] MEDS ORDERED: DEXTROSE 5%-WATER 100 ML IVPB ONE (09:41)
[2019-12-27 10:15] VITALS: BP 137/71; PULSE 82; TEMP 98.1
== END 2019-12-27 10:29 | disposition home or self-care (01) ==
LOC: JINFUSION 09:11 → J7W 09:12 → JINFUSION 10:29
PROVIDERS: ATTEND Internal Medicine Infectious Disease
DX: E11.621 Type 2 diabetes mellitus with foot ulcer (principal); M86.172 Other acute osteomyelitis, left ankle and foot; L03.116 Cellulitis of left lower limb
CPT/HCPCS: 96365

== ENCOUNTER 2019-12-28 09:12 | Day surgery (SDC) | payer OTHER ==
[2019-12-28] MEDS ORDERED: DEXTROSE 5%-WATER 100 ML IVPB ONE (09:49)
[2019-12-28] MEDS ORDERED: CEFTRIAXONE 2 GM in DEXTROSE 5%-WATER 100 ML IVPB ONE (10:00)
[2019-12-28 10:04] VITALS: TEMP 98.9
[2019-12-28 11:03] VITALS: BP 158/76; PULSE 83
== END 2019-12-28 11:03 | disposition home or self-care (01) ==
LOC: JINFUSION 09:12 → J7W 09:12 → JINFUSION 11:03
PROVIDERS: ATTEND Internal Medicine Infectious Disease
DX: E11.621 Type 2 diabetes mellitus with foot ulcer (principal); M86.172 Other acute osteomyelitis, left ankle and foot; L03.116 Cellulitis of left lower limb
CPT/HCPCS: 96365

== ENCOUNTER 2019-12-29 07:09 | Day surgery (SDC) | payer OTHER ==
[2019-12-29] MEDS ORDERED: CEFTRIAXONE 2 GM in DEXTROSE 5%-WATER 100 ML IVPB ONE (10:30)
[2019-12-29] MEDS ORDERED: DEXTROSE 5%-WATER 100 ML IVPB ONE (10:49)
[2019-12-29 18:59] VITALS: BP 118/64; PULSE 72; TEMP 97.9
== END 2019-12-29 11:10 | disposition home or self-care (01) ==
LOC: JINFUSION 07:09 → J7W 07:10 → JINFUSION 11:10
PROVIDERS: ATTEND Internal Medicine Infectious Disease
DX: E11.621 Type 2 diabetes mellitus with foot ulcer (principal); M86.172 Other acute osteomyelitis, left ankle and foot; L03.116 Cellulitis of left lower limb
CPT/HCPCS: 82962; 96365; G0277

== ENCOUNTER 2019-12-30 07:28 | Day surgery (SDC) | payer OTHER ==
[2019-12-30] MEDS ORDERED: DEXTROSE 5%-WATER 100 ML IVPB ONE (10:50)
[2019-12-30] MEDS ORDERED: CEFTRIAXONE 2 GM in DEXTROSE 5%-WATER 100 ML IVPB ONE (11:00)
[2019-12-30 11:49] VITALS: BP 133/68; PULSE 70; TEMP 98.6
== END 2019-12-30 11:50 | disposition home or self-care (01) ==
LOC: J7W 07:28 → JINFUSION 07:28 → J7W 10:15 → JINFUSION 11:50
PROVIDERS: ATTEND Internal Medicine Infectious Disease
DX: E11.621 Type 2 diabetes mellitus with foot ulcer (principal); M86.172 Other acute osteomyelitis, left ankle and foot; L03.116 Cellulitis of left lower limb; L97.522 Non-pressure chronic ulcer of other part of left foot with fat layer exposed; Z79.4 Long term (current) use of insulin
CPT/HCPCS: 82962; 96365; G0277

== ENCOUNTER 2019-12-31 07:16 | Day surgery (SDC) | payer OTHER ==
[2019-12-31] MEDS ORDERED: CEFTRIAXONE 2 GM in DEXTROSE 5%-WATER 100 ML IVPB ONE (10:45)
[2019-12-31] MEDS ORDERED: DEXTROSE 5%-WATER 100 ML IVPB ONE (10:50)
[2019-12-31 11:46] VITALS: BP 140/96; PULSE 80; TEMP 98.5
== END 2019-12-31 12:11 | disposition home or self-care (01) ==
LOC: JINFUSION 07:16 → J7W 07:17 → JINFUSION 12:11
PROVIDERS: ATTEND Internal Medicine Infectious Disease
DX: E11.621 Type 2 diabetes mellitus with foot ulcer (principal); M86.172 Other acute osteomyelitis, left ankle and foot; L03.116 Cellulitis of left lower limb
CPT/HCPCS: 36415; 82962; 85651; 86140; 96365; G0277

== ENCOUNTER 2020-01-01 05:48 | Day surgery (SDC) | payer OTHER ==
[2020-01-01 11:32] VITALS: TEMP 98.8
[2020-01-01] MEDS ORDERED: DEXTROSE 5%-WATER 200 ML IVPB ONE (11:34)
[2020-01-01] MEDS ORDERED: CEFTRIAXONE 2 GM in DEXTROSE 5%-WATER 100 ML IVPB ONE (11:45)
[2020-01-01 13:45] VITALS: BP 149/70; PULSE 98
== END 2020-01-01 13:20 | disposition home or self-care (01) ==
LOC: JINFUSION 05:48 → J7W 05:48 → JINFUSION 13:20
PROVIDERS: ATTEND Internal Medicine Infectious Disease
DX: E11.621 Type 2 diabetes mellitus with foot ulcer (principal); M86.172 Other acute osteomyelitis, left ankle and foot; L03.116 Cellulitis of left lower limb
CPT/HCPCS: 82962; 96365; G0277; G0463-25

== ENCOUNTER 2020-01-02 05:28 | Day surgery (SDC) | payer OTHER ==
[2020-01-02] MEDS ORDERED: CEFTRIAXONE 2 GM in DEXTROSE 5%-WATER 100 ML IVPB ONE (10:15)
[2020-01-02] MEDS ORDERED: DEXTROSE 5%-WATER 100 ML IVPB ONE (10:28)
[2020-01-02 11:23] VITALS: BP 135/88; PULSE 98; TEMP 98.2
== END 2020-01-02 11:28 | disposition home or self-care (01) ==
LOC: JINFUSION 05:28 → J7W 05:29 → JINFUSION 11:28
PROVIDERS: ATTEND Internal Medicine Infectious Disease
DX: E11.621 Type 2 diabetes mellitus with foot ulcer (principal); M86.172 Other acute osteomyelitis, left ankle and foot; L03.116 Cellulitis of left lower limb; L97.522 Non-pressure chronic ulcer of other part of left foot with fat layer exposed; Z79.4 Long term (current) use of insulin
CPT/HCPCS: 82962; 96365; 96367; G0277

== ENCOUNTER 2020-01-03 09:24 | Day surgery (SDC) | payer OTHER ==
[2020-01-03] MEDS ORDERED: DEXTROSE 5%-WATER 100 ML IVPB ONE (09:43)
[2020-01-03] MEDS ORDERED: CEFTRIAXONE 2 GM in DEXTROSE 5%-WATER 100 ML IVPB ONE (09:45)
[2020-01-03 11:25] VITALS: BP 121/64; PULSE 84; TEMP 98.3
== END 2020-01-03 11:25 | disposition home or self-care (01) ==
LOC: JINFUSION 09:24 → J7W 09:27 → JINFUSION 11:25
PROVIDERS: ATTEND Internal Medicine Infectious Disease
DX: E11.621 Type 2 diabetes mellitus with foot ulcer (principal); M86.172 Other acute osteomyelitis, left ankle and foot; L03.116 Cellulitis of left lower limb
CPT/HCPCS: 96365

== ENCOUNTER 2020-01-04 09:16 | Day surgery (SDC) | payer OTHER ==
[2020-01-04] MEDS ORDERED: CEFTRIAXONE 2 GM in DEXTROSE 5%-WATER 100 ML IVPB ONE (09:45)
[2020-01-04] MEDS ORDERED: DEXTROSE 5%-WATER 100 ML IVPB ONE (09:49)
[2020-01-04 10:02] VITALS: TEMP 98
[2020-01-04 10:29] VITALS: BP 120/80; PULSE 84
== END 2020-01-04 10:29 | disposition home or self-care (01) ==
LOC: J7W 09:16 → JINFUSION 09:16
PROVIDERS: ATTEND Internal Medicine Infectious Disease
DX: E11.621 Type 2 diabetes mellitus with foot ulcer (principal); M86.172 Other acute osteomyelitis, left ankle and foot; L03.116 Cellulitis of left lower limb
CPT/HCPCS: 96365

== ENCOUNTER 2020-01-05 05:28 | Day surgery (SDC) | payer OTHER ==
[2020-01-05] MEDS ORDERED: CEFTRIAXONE 2 GM in DEXTROSE 5%-WATER 100 ML IVPB ONE ×2 (11:15→11:30)
[2020-01-05] MEDS ORDERED: DEXTROSE 5%-WATER 100 ML IVPB ONE (11:28)
[2020-01-05 12:56] VITALS: BP 128/77; PULSE 100; TEMP 98
== END 2020-01-05 12:35 | disposition home or self-care (01) ==
LOC: JINFUSION 05:28 → J7W 05:28 → JINFUSION 12:35
PROVIDERS: ATTEND Internal Medicine Infectious Disease
DX: E11.621 Type 2 diabetes mellitus with foot ulcer (principal); M86.172 Other acute osteomyelitis, left ankle and foot; L03.116 Cellulitis of left lower limb
CPT/HCPCS: 82962; 96365; G0277

== ENCOUNTER 2020-01-06 05:09 | Day surgery (SDC) | payer OTHER ==
[2020-01-06] MEDS ORDERED: DEXTROSE 5%-WATER 100 ML IVPB ONE (10:02)
[2020-01-06 10:11] VITALS: TEMP 98.1
[2020-01-06] MEDS ORDERED: CEFTRIAXONE 2 GM in DEXTROSE 5%-WATER 100 ML IVPB ONE (10:15)
[2020-01-06 11:15] VITALS: BP 148/72; PULSE 93
== END 2020-01-06 11:15 | disposition home or self-care (01) ==
LOC: JINFUSION 05:09 → J7W 05:10 → JINFUSION 11:15
PROVIDERS: ATTEND Internal Medicine Infectious Disease
DX: E11.621 Type 2 diabetes mellitus with foot ulcer (principal); M86.172 Other acute osteomyelitis, left ankle and foot; L03.116 Cellulitis of left lower limb; L97.522 Non-pressure chronic ulcer of other part of left foot with fat layer exposed; Z79.4 Long term (current) use of insulin
CPT/HCPCS: 82962; 96365; G0277

== ENCOUNTER 2020-01-07 05:17 | Day surgery (SDC) | payer OTHER ==
[2020-01-07] MEDS ORDERED: CEFTRIAXONE 2 GM in DEXTROSE 5%-WATER 100 ML IVPB ONE (10:45)
[2020-01-07] MEDS ORDERED: DEXTROSE 5%-WATER 100 ML IVPB ONE (11:02)
[2020-01-07 12:08] VITALS: BP 122/66; PULSE 98; TEMP 98.5
== END 2020-01-07 11:40 | disposition home or self-care (01) ==
LOC: JINFUSION 05:17 → J7W 05:17 → JINFUSION 11:40
PROVIDERS: ATTEND Internal Medicine Infectious Disease
DX: E11.621 Type 2 diabetes mellitus with foot ulcer (principal); M86.172 Other acute osteomyelitis, left ankle and foot; L03.116 Cellulitis of left lower limb
CPT/HCPCS: 36415; 82962; 85651; 86140; 96365; G0277

== ENCOUNTER 2020-01-08 05:23 | Day surgery (SDC) | payer OTHER ==
[2020-01-08 11:37] VITALS: TEMP 97.9
[2020-01-08] MEDS ORDERED: CEFTRIAXONE 2 GM in DEXTROSE 5%-WATER 100 ML IVPB ONE (12:00)
[2020-01-08] MEDS ORDERED: DEXTROSE 5%-WATER 100 ML IVPB ONE (12:04)
[2020-01-08 13:00] VITALS: BP 134/74; PULSE 102
== END 2020-01-08 13:04 | disposition home or self-care (01) ==
LOC: JINFUSION 05:23 → J7W 05:25 → JINFUSION 13:04
PROVIDERS: ATTEND Internal Medicine Infectious Disease
DX: E11.621 Type 2 diabetes mellitus with foot ulcer (principal); M86.172 Other acute osteomyelitis, left ankle and foot; L03.116 Cellulitis of left lower limb
CPT/HCPCS: 82962; 96365; 96366; 96367; G0277; G0463-25

== ENCOUNTER 2020-01-09 05:14 | Day surgery (SDC) | payer OTHER ==
[2020-01-09] MEDS ORDERED: DEXTROSE 5%-WATER 100 ML IVPB ONE (10:27)
[2020-01-09] MEDS ORDERED: CEFTRIAXONE 2 GM in DEXTROSE 5%-WATER 100 ML IVPB ONE (10:30)
[2020-01-09 10:44] VITALS: TEMP 97.9
[2020-01-09 12:00] VITALS: BP 139/66; PULSE 99
== END 2020-01-09 14:09 | disposition home or self-care (01) ==
LOC: JINFUSION 05:14 → J7W 05:15 → JINFUSION 14:09
PROVIDERS: ATTEND Internal Medicine Infectious Disease
DX: E11.621 Type 2 diabetes mellitus with foot ulcer (principal); M86.172 Other acute osteomyelitis, left ankle and foot; L03.116 Cellulitis of left lower limb; L97.522 Non-pressure chronic ulcer of other part of left foot with fat layer exposed; Z79.4 Long term (current) use of insulin
CPT/HCPCS: 82962; 96365; G0277

== ENCOUNTER 2020-01-10 06:32 | Day surgery (SDC) | payer OTHER ==
[2020-01-10] MEDS ORDERED: CEFTRIAXONE 2 GM in DEXTROSE 5%-WATER 100 ML IVPB ONE (09:45)
[2020-01-10] MEDS ORDERED: DEXTROSE 5%-WATER 100 ML IVPB ONE (10:00)
[2020-01-10 11:06] VITALS: BP 140/70; PULSE 86; TEMP 98.1
== END 2020-01-10 14:27 | disposition home or self-care (01) ==
LOC: J7W 06:32 → JINFUSION 06:32
PROVIDERS: ATTEND Internal Medicine Infectious Disease
DX: E11.621 Type 2 diabetes mellitus with foot ulcer (principal); M86.172 Other acute osteomyelitis, left ankle and foot; L03.116 Cellulitis of left lower limb
CPT/HCPCS: 96365

== ENCOUNTER 2020-01-11 09:22 | Day surgery (SDC) | payer OTHER ==
[2020-01-11] MEDS ORDERED: CEFTRIAXONE 2 GM in DEXTROSE 5%-WATER 100 ML IVPB ONE (09:45)
[2020-01-11] MEDS ORDERED: DEXTROSE 5%-WATER 100 ML IVPB ONE (09:45)
[2020-01-11 09:59] VITALS: TEMP 98.2
[2020-01-11 10:37] VITALS: BP 148/66; PULSE 79
== END 2020-01-11 10:38 | disposition home or self-care (01) ==
LOC: JINFUSION 09:22 → J7W 09:23 → JINFUSION 10:38
PROVIDERS: ATTEND Internal Medicine Infectious Disease
DX: E11.621 Type 2 diabetes mellitus with foot ulcer (principal); M86.172 Other acute osteomyelitis, left ankle and foot; L03.116 Cellulitis of left lower limb
CPT/HCPCS: 96365

== ENCOUNTER 2020-01-12 05:14 | Day surgery (SDC) | payer OTHER ==
[2020-01-12] MEDS ORDERED: CEFTRIAXONE 2 GM in DEXTROSE 5%-WATER 100 ML IVPB ONE (10:15)
[2020-01-12] MEDS ORDERED: DEXTROSE 5%-WATER 100 ML IVPB ONE (10:29)
[2020-01-12 14:00] VITALS: BP 120/68; PULSE 83; TEMP 98
== END 2020-01-12 14:00 | disposition home or self-care (01) ==
LOC: J7W 05:14 → JINFUSION 05:14
PROVIDERS: ATTEND Internal Medicine Infectious Disease
DX: E11.621 Type 2 diabetes mellitus with foot ulcer (principal); M86.172 Other acute osteomyelitis, left ankle and foot; L03.116 Cellulitis of left lower limb
CPT/HCPCS: 96365

== ENCOUNTER 2020-01-13 05:33 | Day surgery (SDC) | payer OTHER ==
[2020-01-13] MEDS ORDERED: CEFTRIAXONE 2 GM in DEXTROSE 5%-WATER 100 ML IVPB ONE (10:00)
[2020-01-13] MEDS ORDERED: DEXTROSE 5%-WATER 100 ML IVPB ONE (10:02)
[2020-01-13 11:05] VITALS: BP 145/78; PULSE 96; TEMP 97.8
== END 2020-01-13 11:15 | disposition home or self-care (01) ==
LOC: JINFUSION 05:33 → J7W 05:34 → JINFUSION 11:15
PROVIDERS: ATTEND Internal Medicine Infectious Disease
DX: E11.621 Type 2 diabetes mellitus with foot ulcer (principal); M86.172 Other acute osteomyelitis, left ankle and foot; L03.116 Cellulitis of left lower limb
CPT/HCPCS: 96365

== ENCOUNTER 2020-01-14 05:15 | Day surgery (SDC) | payer OTHER ==
[2020-01-14] MEDS ORDERED: CEFTRIAXONE 2 GM in DEXTROSE 5%-WATER 100 ML IVPB ONE (09:45)
[2020-01-14] MEDS ORDERED: DEXTROSE 5%-WATER 100 ML IVPB ONE (10:12)
[2020-01-14 10:54] VITALS: TEMP 98.2
[2020-01-14 10:58] VITALS: BP 137/71; PULSE 86
== END 2020-01-14 11:12 | disposition home or self-care (01) ==
LOC: JINFUSION 05:15 → J7W 05:16 → JINFUSION 11:12
PROVIDERS: ATTEND Internal Medicine Infectious Disease
DX: E11.621 Type 2 diabetes mellitus with foot ulcer (principal); M86.172 Other acute osteomyelitis, left ankle and foot; L03.116 Cellulitis of left lower limb
CPT/HCPCS: 36415; 85651; 86140; 96365

== ENCOUNTER → 2020-01-19 | Day surgery (SDC) | payer OTHER | END | disposition home or self-care (01) | LOC: JRADIR 11:46 | PROVIDERS: ATTEND Internal Medicine Infectious Disease | PROC: 0JPT0WZ Removal of Totally Implantable Vascular Access Device from Trunk Subcutaneous Tissue and Fascia, Open Approach (ICD-10-PCS; principal; 2020-01-19) | DX: Z45.2 Encounter for adjustment and management of vascular access device (principal) | CPT/HCPCS: 36589 ==

== ENCOUNTER 2020-10-24 00:59 | Emergency (ER) | payer OTHER ==
[2020-10-24 01:04] VITALS: BMI 30.2
[2020-10-24] MEDS ORDERED: ACETAMINOPHEN 1000 MG/100 ML VIAL (NON FORMULARY) IVPB ONE (02:35)
[2020-10-24] MEDS ORDERED: DEXAMETHASONE LIQUID 0.5 MG/5 ML PO ONE (02:35)
[2020-10-24] MEDS ORDERED: DEXAMETHASONE SOD PHOSPHATE 10 MG/1 ML VIAL ONE (03:07)
[2020-10-24] MEDS ORDERED: ACETAMINOPHEN INJECTION 100 ML IVPB ONE (03:08)
[2020-10-24 03:33] LABS: BASO % 0.2 % (0-2.0); EOS % 0.2 % (0-4.5); HEMATOCRIT 34.9 % (32.4-45.2); HEMOGLOBIN 11.3 GM/dL (10.7-15.3); LYMPH % 5.2 % (8-40); MCH 30.2 pg (25.7-33.7); MCHC 32.4 g/dl (32.0-36.0); MEAN CELL VOLUME 93.4 fl (80-96); MEAN PLT VOLUME 8.1 fl (7.5-11.1); MONO % 9.4 % (3.8-10.2); PLATELET COUNT 227 K/MM3 (134-434); RBC 3.73 M/mm3 (3.60-5.2); RDW 13.4 % (11.6-15.6); WHITE BLOOD COUNT 7.7 K/mm3 (4.0-10.0)
[2020-10-24 03:40] LABS: INR 0.98 (0.83-1.09); PROTHROMBIN TIME (PATIENT) 11.9 SEC (9.7-13.0)
[2020-10-24 03:43] LABS: ACTIVATED PTT 30.2 SECONDS (25.2-36.5)
[2020-10-24 03:54] LABS: CHLORIDE 108 mmol/L (98-107); POTASSIUM 4.2 mmol/L (3.5-5.1); SODIUM 140 mmol/L (136-145)
[2020-10-24 03:56] LABS: CALCIUM 8.9 mg/dL (8.5-10.1)
[2020-10-24 03:57] LABS: ALBUMIN 3.7 g/dl (3.4-5.0); ANION GAP 10 MMOL/L (8-16); BLOOD UREA NITROGEN 20.1 mg/dL (7-18); CO2 22 mmol/L (21-32); GLUCOSE,RANDOM 151 mg/dL (74-106)
[2020-10-24 03:59] LABS: BILIRUBIN,DIRECT 0.1 mg/dL (0.0-0.2); CREATININE 1.4 mg/dL (0.55-1.3)
[2020-10-24 04:00] LABS: SGOT/AST 12 U/L (15-37); SGPT/ALT 19 U/L (13-61)
[2020-10-24 04:01] LABS: BILIRUBIN,TOTAL 0.6 mg/dL (0.2-1); LDH 219 U/L (84-246); TOT PROT 6.9 g/dl (6.4-8.2)
[2020-10-24 04:02] LABS: ALK PHOS 69 U/L (45-117)
[2020-10-24 04:42] VITALS: PULSE 95; TEMP 98.4
[2020-10-24 04:44] VITALS: BP 133/65
== END 2020-10-24 05:30 | disposition short-term general hospital (02) ==
LOC: JER 00:59
PROC: 3E0333Z Introduction of Anti-inflammatory into Peripheral Vein, Percutaneous Approach (ICD-10-PCS; principal; 2020-10-24)
DX: U07.1 COVID-19 (principal)
CPT/HCPCS: 36415; 71046-TC-FY; 80053; 82248; 82550; 82728; 83605; 83615; 84484; 85025; 85379; 85610; 85730; 86140; 87040; 93005; 93010; 99285-25; C9803; J0131; U0003

== ENCOUNTER 2022-10-15 12:43 | Inpatient (IN) | payer OTHER ==
[2022-10-15 12:52] VITALS: BMI 28.6
[2022-10-15] MEDS ORDERED: VANCOMYCIN 1 GM in D5W (PRE-DOCKED) 1,000 MG/250 ML IVPB ONE (14:20)
[2022-10-15] MEDS ORDERED: SODIUM CHLORIDE 1,000 ML IV STA (14:20)
[2022-10-15] MEDS ORDERED: VANCOMYCIN/WATER FOR INJ (PEG) 1,000 MG/200 ML BAG IVPB ONE (14:30)
[2022-10-15 15:19] LABS: BASO % 0.6 % (0-2.0); HEMATOCRIT 33.4 % (32.4-45.2); HEMOGLOBIN 10.6 GM/dL (10.7-15.3); LYMPH % 4.7 % (8-40); MCH 26.9 pg (25.7-33.7); MCHC 31.7 g/dl (32.0-36.0); MEAN CELL VOLUME 84.8 fl (80-96); MEAN PLT VOLUME 7.5 fl (7.5-11.1); NEUT % 88.7 % (42.8-82.8); PLATELET COUNT 618 10^3/uL (134-434); RBC 3.94 M/mm3 (3.60-5.2); RDW 15.3 % (11.6-15.6); WHITE BLOOD COUNT 16.7 K/mm3 (4.0-10.0)
[2022-10-15 15:20] LABS: CALCIUM 9.6 mg/dL (8.5-10.1)
[2022-10-15 15:21] LABS: ALBUMIN 2.6 g/dl (3.4-5.0); BLOOD UREA NITROGEN 22.8 mg/dL (7-18)
[2022-10-15 15:24] LABS: CREATININE 1.4 mg/dL (0.55-1.3)
[2022-10-15 15:25] LABS: BILIRUBIN,TOTAL 0.6 mg/dL (0.2-1); TOT PROT 7.1 g/dl (6.4-8.2)
[2022-10-15 15:33] LABS: ERYTHROCYTE SEDIMENTATION RATE 95 mm/hr (0-30)
[2022-10-15 16:08] LABS: EPI CELLS 7 /uL (0-25.1); HYALINE CASTS 1 /uL (0-3.1); PH,URINE 5.5 (5.0-8.0); URINE APPEARANCE CLEAR; URINE BACTERIA 0 /uL (0-1359); URINE BILIRUBIN NEGATIVE (NEGATIVE); URINE COLOR YELLOW; URINE GLUCOSE (UA) TRACE (NEGATIVE); URINE KETONE NEGATIVE (NEGATIVE); URINE LEUK ESTERASE NEGATIVE (NEGATIVE); URINE NITRITE NEGATIVE (NEGATIVE); URINE PROTEIN 2+ (NEGATIVE); URINE RBC 5 /uL (0-23.9); URINE UROBILINOGEN 0.2 mg/dL (0.2-1.0); URINE WBC 2 /uL (0-25.8)
[2022-10-15] MEDS ORDERED: CEFEPIME HCL/D5W 1 GM/50 ML BAG IVPB ONE (16:42)
[2022-10-15] MEDS ORDERED: CEFEPIME 1 GM/100 ML BAG IVPB ONE (17:47)
[2022-10-15] MEDS ORDERED: ALBUTEROL SO4 HFA INHALER IH PRN (21:27)
[2022-10-15] MEDS ORDERED: VANCOMYCIN 1,000 MG in DEXTROSE 5%-WATER - 250 ML IVPB SCH (21:30)
[2022-10-16] MEDS ORDERED: VANCOMYCIN/WATER FOR INJ (PEG) 1,000 MG/200 ML BAG IVPB SCH (03:00)
[2022-10-16 08:56] LABS: BASO % 0.5 % (0-2.0); EOS % 0.6 % (0-4.5); HEMATOCRIT 25.7 % (32.4-45.2); HEMOGLOBIN 8.3 GM/dL (10.7-15.3); LYMPH % 7.5 % (8-40); MCH 27.7 pg (25.7-33.7); MCHC 32.3 g/dl (32.0-36.0); MEAN CELL VOLUME 85.7 fl (80-96); MEAN PLT VOLUME 7.2 fl (7.5-11.1); MONO % 8.9 % (3.8-10.2); NEUT % 82.5 % (42.8-82.8); PLATELET COUNT 480 10^3/uL (134-434); RBC 2.99 M/mm3 (3.60-5.2); RDW 14.1 % (11.6-15.6); WHITE BLOOD COUNT 10.2 K/mm3 (4.0-10.0)
[2022-10-16 09:21] LABS: CALCIUM 9.2 mg/dL (8.5-10.1)
[2022-10-16 09:22] LABS: MAGNESIUM 1.5 mg/dL (1.8-2.4)
[2022-10-16 09:24] LABS: CREATININE 1.1 mg/dL (0.55-1.3)
[2022-10-16 09:25] LABS: BILIRUBIN,TOTAL 0.5 mg/dL (0.2-1); TOT PROT 5.6 g/dl (6.4-8.2)
[2022-10-16 09:39] LABS: ALBUMIN 2.1 g/dl (3.4-5.0)
[2022-10-16] MEDS ORDERED: CEFEPIME 0.5 GM in DEXTROSE 5%-WATER - 100 ML IVPB SCH (10:00)
[2022-10-16] MEDS ORDERED: CEFEPIME 0.5 GM in DEXTROSE 5%-WATER - 50 ML IVPB SCH (10:00)
[2022-10-16] MEDS ORDERED: TACROLIMUS ANHYDROUS 5 MG CAPSULE PO SCH (10:00)
[2022-10-16] MEDS ORDERED: CHOLECALCIFEROL (VIT D3) 1,000 UNIT (25 MCG) TABLET ONE (10:05)
[2022-10-16] MEDS ORDERED: FAMOTIDINE 20 MG TABLET ONE (10:05)
[2022-10-16] MEDS ORDERED: predniSONE 10 MG TABLET (UD) ONE (10:05)
[2022-10-16] MEDS ORDERED: FUROSEMIDE 20 MG TABLET (FP) ONE (10:06)
[2022-10-16] MEDS: ATORVASTATIN CA 20 MG TABLET (FP) PO SCH ×2 (10:07→21:37)
[2022-10-16] MEDS: MAGNESIUM OXIDE 400 MG TABLET (FP) PO SCH ×3 (10:07→21:51)
[2022-10-16] MEDS: BUDESONIDE/FORMETEROL FUMARATE 160/4.5 mcg INHALER IH SCH ×3 (10:08→21:52)
[2022-10-16] MEDS: TACROLIMUS ANHYDROUS 1 MG CAPSULE PO SCH ×3 (10:08→21:51)
[2022-10-16] MEDS: INSULIN SLIDING SCALE (NOVOLOG) 1 VIAL SQ SCH ×5 (10:08→21:35)
[2022-10-16] MEDS: MYCOPHENOLATE SODIUM 360 MG TABLET.DR PO SCH ×3 (10:08→21:51)
[2022-10-16] MEDS ORDERED: ASPIRIN 81 MG CHEWABLE TABLETS ONE (10:47)
[2022-10-16] MEDS ORDERED: MAGNESIUM OXIDE 400 MG TABLET (FP) ONE (10:47)
[2022-10-16] MEDS ORDERED: NIFEdipine E.R. 30 MG TABLET ONE (10:47)
[2022-10-16] MEDS: predniSONE 5 MG TABLET (UD) PO SCH (11:02)
[2022-10-16] MEDS: ASPIRIN 81 MG CHEWABLE TABLETS PO SCH (11:02)
[2022-10-16] MEDS: FAMOTIDINE 20 MG TABLET PO SCH (11:03)
[2022-10-16] MEDS: FUROSEMIDE 20 MG TABLET (FP) PO SCH (11:03)
[2022-10-16] MEDS: sitaGLIPtin PHOSPHATE 50 MG TABLET PO SCH ×2 (11:03→14:57)
[2022-10-16] MEDS: CHOLECALCIFEROL (VIT D3) 1,000 UNIT (25 MCG) TABLET PO SCH (11:04)
[2022-10-16] MEDS: NIFEdipine E.R. 30 MG TABLET PO SCH (11:04)
[2022-10-16] MEDS: VANCOMYCIN/WATER FOR INJ (PEG) 1,000 MG/200 ML BAG IVPB SCH (16:48)
[2022-10-16] MEDS ORDERED: FLU VACC QS2022-23(6MOS UP)/PF 60 MCG/0.5 ML SYRINGE IM ONE (17:00)
[2022-10-16] MEDS: CEFEPIME 2 GM in DEXTROSE 5%-WATER 100 ML IVPB SCH (17:49)
[2022-10-17] MEDS: CEFEPIME 2 GM in DEXTROSE 5%-WATER 100 ML IVPB SCH ×3 (06:00→20:29)
[2022-10-17] MEDS: sitaGLIPtin PHOSPHATE 50 MG TABLET PO SCH (06:08)
[2022-10-17] MEDS: INSULIN SLIDING SCALE (NOVOLOG) 1 VIAL SQ SCH ×6 (06:09→21:58)
[2022-10-17] MEDS: ASPIRIN 81 MG CHEWABLE TABLETS PO SCH (10:43)
[2022-10-17] MEDS: FAMOTIDINE 20 MG TABLET PO SCH (10:43)
[2022-10-17] MEDS: MAGNESIUM OXIDE 400 MG TABLET (FP) PO SCH ×2 (10:43→21:58)
[2022-10-17] MEDS: CHOLECALCIFEROL (VIT D3) 1,000 UNIT (25 MCG) TABLET PO SCH (10:43)
[2022-10-17] MEDS: TACROLIMUS ANHYDROUS 1 MG CAPSULE PO SCH ×2 (10:44→21:58)
[2022-10-17] MEDS: MYCOPHENOLATE SODIUM 360 MG TABLET.DR PO SCH ×2 (10:45→21:58)
[2022-10-17] MEDS: BUDESONIDE/FORMETEROL FUMARATE 160/4.5 mcg INHALER IH SCH ×2 (10:47→21:58)
[2022-10-17] MEDS: NIFEdipine E.R. 30 MG TABLET PO SCH (12:55)
[2022-10-17] MEDS: FUROSEMIDE 20 MG TABLET (FP) PO SCH (12:55)
[2022-10-17] MEDS: predniSONE 5 MG TABLET (UD) PO SCH (12:56)
[2022-10-17 15:57] LABS: BASO % 0.4 % (0-2.0); EOS % 0.8 % (0-4.5); HEMATOCRIT 26.9 % (32.4-45.2); HEMOGLOBIN 8.7 GM/dL (10.7-15.3); LYMPH % 8.5 % (8-40); MCH 27.5 pg (25.7-33.7); MCHC 32.1 g/dl (32.0-36.0); MEAN CELL VOLUME 85.6 fl (80-96); MEAN PLT VOLUME 6.8 fl (7.5-11.1); MONO % 10.2 % (3.8-10.2); NEUT % 80.1 % (42.8-82.8); PLATELET COUNT 438 10^3/uL (134-434); RBC 3.15 M/mm3 (3.60-5.2); RDW 14.7 % (11.6-15.6); WHITE BLOOD COUNT 9.9 K/mm3 (4.0-10.0)
[2022-10-17 16:18] LABS: CALCIUM 9.4 mg/dL (8.5-10.1)
[2022-10-17 16:19] LABS: ALBUMIN 2.1 g/dl (3.4-5.0); BLOOD UREA NITROGEN 20.9 mg/dL (7-18)
[2022-10-17 16:22] LABS: CREATININE 1.3 mg/dL (0.55-1.3)
[2022-10-17 16:24] LABS: BILIRUBIN,TOTAL 0.4 mg/dL (0.2-1); TOT PROT 5.6 g/dl (6.4-8.2)
[2022-10-17] MEDS: VANCOMYCIN/WATER FOR INJ (PEG) 1,000 MG/200 ML BAG IVPB SCH (16:30)
[2022-10-17] MEDS: ATORVASTATIN CA 20 MG TABLET (FP) PO SCH (21:58)
[2022-10-18] MEDS: CEFEPIME 2 GM in DEXTROSE 5%-WATER 100 ML IVPB SCH ×2 (06:51→16:39)
[2022-10-18] MEDS: INSULIN SLIDING SCALE (NOVOLOG) 1 VIAL SQ SCH ×4 (06:51→22:04)
[2022-10-18] MEDS: sitaGLIPtin PHOSPHATE 50 MG TABLET PO SCH (06:52)
[2022-10-18] MEDS: TACROLIMUS ANHYDROUS 1 MG CAPSULE PO SCH ×2 (09:19→22:04)
[2022-10-18] MEDS: FAMOTIDINE 20 MG TABLET PO SCH (09:19)
[2022-10-18] MEDS: ASPIRIN 81 MG CHEWABLE TABLETS PO SCH (09:19)
[2022-10-18] MEDS: NIFEdipine E.R. 30 MG TABLET PO SCH (09:19)
[2022-10-18] MEDS: MAGNESIUM OXIDE 400 MG TABLET (FP) PO SCH ×2 (09:19→22:04)
[2022-10-18] MEDS: predniSONE 5 MG TABLET (UD) PO SCH (09:19)
[2022-10-18] MEDS: CHOLECALCIFEROL (VIT D3) 1,000 UNIT (25 MCG) TABLET PO SCH (09:19)
[2022-10-18] MEDS: FUROSEMIDE 20 MG TABLET (FP) PO SCH (09:19)
[2022-10-18] MEDS: BUDESONIDE/FORMETEROL FUMARATE 160/4.5 mcg INHALER IH SCH ×2 (09:26→22:05)
[2022-10-18] MEDS: MYCOPHENOLATE SODIUM 360 MG TABLET.DR PO SCH ×2 (09:33→22:04)
[2022-10-18 09:51] LABS: MAGNESIUM 1.9 mg/dL (1.8-2.4)
[2022-10-18] MEDS: SODIUM CHLORIDE 1,000 ML IV SCH (13:18)
[2022-10-18] MEDS: VANCOMYCIN/WATER FOR INJ (PEG) 1,000 MG/200 ML BAG IVPB SCH (16:38)
[2022-10-18] MEDS: ATORVASTATIN CA 20 MG TABLET (FP) PO SCH (22:04)
[2022-10-19] MEDS: SODIUM CHLORIDE 1,000 ML IV SCH (05:04)
[2022-10-19] MEDS: CEFEPIME 2 GM in DEXTROSE 5%-WATER 100 ML IVPB SCH ×2 (05:04→17:52)
[2022-10-19] MEDS: INSULIN SLIDING SCALE (NOVOLOG) 1 VIAL SQ SCH ×4 (06:40→21:48)
[2022-10-19] MEDS: sitaGLIPtin PHOSPHATE 50 MG TABLET PO SCH (07:02)
[2022-10-19 08:53] LABS: HEMATOCRIT 27.7 % (32.4-45.2); MCH 27.7 pg (25.7-33.7); MCHC 32.5 g/dl (32.0-36.0); MEAN CELL VOLUME 85.2 fl (80-96); PLATELET COUNT 429 10^3/uL (134-434); RBC 3.25 M/mm3 (3.60-5.2); RDW 14.7 % (11.6-15.6); WHITE BLOOD COUNT 8.5 K/mm3 (4.0-10.0)
[2022-10-19] MEDS: ASPIRIN 81 MG CHEWABLE TABLETS PO SCH (09:18)
[2022-10-19] MEDS: predniSONE 5 MG TABLET (UD) PO SCH (09:18)
[2022-10-19] MEDS: MYCOPHENOLATE SODIUM 360 MG TABLET.DR PO SCH ×2 (09:19→21:44)
[2022-10-19] MEDS: FAMOTIDINE 20 MG TABLET PO SCH (09:19)
[2022-10-19] MEDS: FUROSEMIDE 20 MG TABLET (FP) PO SCH (09:19)
[2022-10-19] MEDS: BUDESONIDE/FORMETEROL FUMARATE 160/4.5 mcg INHALER IH SCH ×2 (09:19→21:44)
[2022-10-19] MEDS: CHOLECALCIFEROL (VIT D3) 1,000 UNIT (25 MCG) TABLET PO SCH (09:19)
[2022-10-19] MEDS: NIFEdipine E.R. 30 MG TABLET PO SCH (09:19)
[2022-10-19] MEDS: TACROLIMUS ANHYDROUS 1 MG CAPSULE PO SCH ×2 (09:19→21:43)
[2022-10-19] MEDS: MAGNESIUM OXIDE 400 MG TABLET (FP) PO SCH ×2 (09:19→21:42)
[2022-10-19 09:23] LABS: BLOOD UREA NITROGEN 16.8 mg/dL (7-18); MAGNESIUM 1.6 mg/dL (1.8-2.4)
[2022-10-19 09:25] LABS: BILIRUBIN,TOTAL 0.5 mg/dL (0.2-1); CREATININE 1.2 mg/dL (0.55-1.3); PHOSPHOROUS 2.4 mg/dL (2.5-4.9); TOT PROT 5.5 g/dl (6.4-8.2)
[2022-10-19 10:58] LABS: ANISOCYTOSIS 0; HELMET CELLS 0; HOWELL-JOLLY BODIES 0; MACROCYTOSIS 0; OVALOCYTE 0; ROULEAU 0; SICKELED CELLS 0; TARGET CELLS 0; TEAR DROP CELLS 0; TOXIC GRANULATION 0
[2022-10-19] MEDS: NAPH,MB-DB/K PH,MBDB POWDER PACKET PO SCH ×2 (14:11→21:42)
[2022-10-19] MEDS: VANCOMYCIN/WATER FOR INJ (PEG) 1,000 MG/200 ML BAG IVPB SCH (16:37)
[2022-10-19] MEDS: ATORVASTATIN CA 20 MG TABLET (FP) PO SCH (21:42)
[2022-10-20] MEDS: NAPH,MB-DB/K PH,MBDB POWDER PACKET PO SCH (05:33)
[2022-10-20] MEDS: CEFEPIME 2 GM in DEXTROSE 5%-WATER 100 ML IVPB SCH ×2 (05:33→17:40)
[2022-10-20] MEDS: sitaGLIPtin PHOSPHATE 50 MG TABLET PO SCH (06:39)
[2022-10-20] MEDS: INSULIN SLIDING SCALE (NOVOLOG) 1 VIAL SQ SCH ×4 (06:40→22:23)
[2022-10-20] MEDS: MYCOPHENOLATE SODIUM 360 MG TABLET.DR PO SCH ×2 (10:06→22:16)
[2022-10-20] MEDS: FAMOTIDINE 20 MG TABLET PO SCH (10:06)
[2022-10-20] MEDS: MAGNESIUM OXIDE 400 MG TABLET (FP) PO SCH ×2 (10:06→22:04)
[2022-10-20] MEDS: NIFEdipine E.R. 30 MG TABLET PO SCH (10:06)
[2022-10-20] MEDS: CHOLECALCIFEROL (VIT D3) 1,000 UNIT (25 MCG) TABLET PO SCH (10:06)
[2022-10-20] MEDS: FUROSEMIDE 20 MG TABLET (FP) PO SCH (10:06)
[2022-10-20] MEDS: ASPIRIN 81 MG CHEWABLE TABLETS PO SCH (10:06)
[2022-10-20] MEDS: predniSONE 5 MG TABLET (UD) PO SCH (10:06)
[2022-10-20] MEDS: BUDESONIDE/FORMETEROL FUMARATE 160/4.5 mcg INHALER IH SCH ×2 (10:07→22:03)
[2022-10-20] MEDS: TACROLIMUS ANHYDROUS 1 MG CAPSULE PO SCH ×2 (10:07→22:18)
[2022-10-20 10:39] LABS: HEMATOCRIT 28.3 % (32.4-45.2); HEMOGLOBIN 9.4 GM/dL (10.7-15.3); MCH 28.4 pg (25.7-33.7); MCHC 33.3 g/dl (32.0-36.0); MEAN CELL VOLUME 85.4 fl (80-96); MEAN PLT VOLUME 7.1 fl (7.5-11.1); PLATELET COUNT 480 10^3/uL (134-434); RBC 3.32 M/mm3 (3.60-5.2); RDW 14.7 % (11.6-15.6); WHITE BLOOD COUNT 10.5 K/mm3 (4.0-10.0)
[2022-10-20 11:25] LABS: ANISOCYTOSIS 0; HELMET CELLS 0; HOWELL-JOLLY BODIES 0; MACROCYTOSIS 0; OVALOCYTE 0; ROULEAU 0; SICKELED CELLS 0; TARGET CELLS 0; TEAR DROP CELLS 0; TOXIC GRANULATION 0
[2022-10-20 11:51] LABS: BLOOD UREA NITROGEN 16.6 mg/dL (7-18); CALCIUM 9.7 mg/dL (8.5-10.1); MAGNESIUM 1.7 mg/dL (1.8-2.4)
[2022-10-20 11:55] LABS: BILIRUBIN,TOTAL 0.7 mg/dL (0.2-1); CREATININE 1.2 mg/dL (0.55-1.3); PHOSPHOROUS 2.5 mg/dL (2.5-4.9); TOT PROT 6.5 g/dl (6.4-8.2)
[2022-10-20 11:58] LABS: ALBUMIN 2.5 g/dl (3.4-5.0)
[2022-10-20] MEDS: VANCOMYCIN/WATER FOR INJ (PEG) 1,000 MG/200 ML BAG IVPB SCH (16:15)
[2022-10-20] MEDS: ATORVASTATIN CA 20 MG TABLET (FP) PO SCH (22:04)
[2022-10-21] MEDS: CEFEPIME 2 GM in DEXTROSE 5%-WATER 100 ML IVPB SCH ×2 (05:07→17:51)
[2022-10-21] MEDS: sitaGLIPtin PHOSPHATE 50 MG TABLET PO SCH (06:33)
[2022-10-21] MEDS: INSULIN SLIDING SCALE (NOVOLOG) 1 VIAL SQ SCH ×4 (06:40→22:00)
[2022-10-21] MEDS: CHOLECALCIFEROL (VIT D3) 1,000 UNIT (25 MCG) TABLET PO SCH (10:03)
[2022-10-21] MEDS: predniSONE 5 MG TABLET (UD) PO SCH (10:03)
[2022-10-21] MEDS: FUROSEMIDE 20 MG TABLET (FP) PO SCH (10:03)
[2022-10-21] MEDS: NIFEdipine E.R. 30 MG TABLET PO SCH (10:03)
[2022-10-21] MEDS: ASPIRIN 81 MG CHEWABLE TABLETS PO SCH (10:04)
[2022-10-21] MEDS: MAGNESIUM OXIDE 400 MG TABLET (FP) PO SCH ×2 (10:04→22:00)
[2022-10-21] MEDS: TACROLIMUS ANHYDROUS 1 MG CAPSULE PO SCH ×2 (10:04→22:00)
[2022-10-21] MEDS: FAMOTIDINE 20 MG TABLET PO SCH (10:04)
[2022-10-21] MEDS: BUDESONIDE/FORMETEROL FUMARATE 160/4.5 mcg INHALER IH SCH ×2 (10:07→22:00)
[2022-10-21] MEDS: MYCOPHENOLATE SODIUM 360 MG TABLET.DR PO SCH ×2 (10:09→22:00)
[2022-10-21 10:35] LABS: HEMATOCRIT 29.6 % (32.4-45.2); HEMOGLOBIN 9.3 GM/dL (10.7-15.3); MCHC 31.6 g/dl (32.0-36.0); MEAN CELL VOLUME 85.6 fl (80-96); MEAN PLT VOLUME 7.4 fl (7.5-11.1); PLATELET COUNT 513 10^3/uL (134-434); RBC 3.46 M/mm3 (3.60-5.2); RDW 14.9 % (11.6-15.6); WHITE BLOOD COUNT 10.4 K/mm3 (4.0-10.0)
[2022-10-21 11:25] LABS: ANISOCYTOSIS 3+; MACROCYTOSIS 0
[2022-10-21 11:38] LABS: BLOOD UREA NITROGEN 19.2 mg/dL (7-18)
[2022-10-21 11:39] LABS: ALBUMIN 2.4 g/dl (3.4-5.0)
[2022-10-21 11:40] LABS: CALCIUM 9.8 mg/dL (8.5-10.1)
[2022-10-21 11:41] LABS: MAGNESIUM 1.8 mg/dL (1.8-2.4)
[2022-10-21 11:43] LABS: BILIRUBIN,TOTAL 0.6 mg/dL (0.2-1); CREATININE 1.3 mg/dL (0.55-1.3); TOT PROT 6.4 g/dl (6.4-8.2)
[2022-10-21] MEDS ORDERED: ACETAMINOPHEN 325 MG TABLET (FP) PO PRN (13:28)
[2022-10-21] MEDS: VANCOMYCIN/WATER FOR INJ (PEG) 1,000 MG/200 ML BAG IVPB SCH (16:20)
[2022-10-21] MEDS: ATORVASTATIN CA 20 MG TABLET (FP) PO SCH (22:00)
[2022-10-22] MEDS: sitaGLIPtin PHOSPHATE 50 MG TABLET PO SCH (06:05)
[2022-10-22] MEDS: CEFEPIME 2 GM in DEXTROSE 5%-WATER 100 ML IVPB SCH ×2 (06:05→18:24)
[2022-10-22] MEDS: INSULIN SLIDING SCALE (NOVOLOG) 1 VIAL SQ SCH ×4 (06:51→22:43)
[2022-10-22 08:48] LABS: BASO % 0.4 % (0-2.0); EOS % 0.8 % (0-4.5); HEMATOCRIT 26.1 % (32.4-45.2); HEMOGLOBIN 8.3 GM/dL (10.7-15.3); MCHC 31.7 g/dl (32.0-36.0); MEAN CELL VOLUME 85.3 fl (80-96); MEAN PLT VOLUME 7.2 fl (7.5-11.1); MONO % 10.3 % (3.8-10.2); NEUT % 81.5 % (42.8-82.8); PLATELET COUNT 462 10^3/uL (134-434); RBC 3.06 M/mm3 (3.60-5.2); RDW 14.4 % (11.6-15.6); WHITE BLOOD COUNT 11.8 K/mm3 (4.0-10.0)
[2022-10-22 09:16] LABS: BLOOD UREA NITROGEN 18.1 mg/dL (7-18); CALCIUM 9.8 mg/dL (8.5-10.1)
[2022-10-22 09:17] LABS: ALBUMIN 2.2 g/dl (3.4-5.0); MAGNESIUM 1.7 mg/dL (1.8-2.4)
[2022-10-22] MEDS: MAGNESIUM OXIDE 400 MG TABLET (FP) PO SCH ×2 (09:17→22:44)
[2022-10-22] MEDS: MYCOPHENOLATE SODIUM 360 MG TABLET.DR PO SCH ×2 (09:17→22:42)
[2022-10-22] MEDS: ASPIRIN 81 MG CHEWABLE TABLETS PO SCH (09:17)
[2022-10-22] MEDS: FAMOTIDINE 20 MG TABLET PO SCH (09:17)
[2022-10-22] MEDS: FUROSEMIDE 20 MG TABLET (FP) PO SCH (09:17)
[2022-10-22] MEDS: CHOLECALCIFEROL (VIT D3) 1,000 UNIT (25 MCG) TABLET PO SCH (09:17)
[2022-10-22] MEDS: predniSONE 5 MG TABLET (UD) PO SCH (09:17)
[2022-10-22] MEDS: NIFEdipine E.R. 30 MG TABLET PO SCH (09:18)
[2022-10-22] MEDS: TACROLIMUS ANHYDROUS 1 MG CAPSULE PO SCH ×2 (09:18→22:42)
[2022-10-22 09:20] LABS: CREATININE 1.3 mg/dL (0.55-1.3)
[2022-10-22 09:21] LABS: TOT PROT 5.9 g/dl (6.4-8.2)
[2022-10-22] MEDS: BUDESONIDE/FORMETEROL FUMARATE 160/4.5 mcg INHALER IH SCH ×2 (09:22→22:44)
[2022-10-22 09:24] LABS: BILIRUBIN,TOTAL 0.5 mg/dL (0.2-1)
[2022-10-22] MEDS ORDERED: MAGNESIUM OXIDE 400 MG TABLET (FP) PO ONE (11:05)
[2022-10-22] MEDS: VANCOMYCIN/WATER FOR INJ (PEG) 1,000 MG/200 ML BAG IVPB SCH (16:43)
[2022-10-22] MEDS: ATORVASTATIN CA 20 MG TABLET (FP) PO SCH (22:42)
[2022-10-23] MEDS: CEFEPIME 2 GM in DEXTROSE 5%-WATER 100 ML IVPB SCH ×2 (05:31→16:38)
[2022-10-23] MEDS: sitaGLIPtin PHOSPHATE 50 MG TABLET PO SCH (07:03)
[2022-10-23] MEDS: INSULIN SLIDING SCALE (NOVOLOG) 1 VIAL SQ SCH ×4 (07:04→22:04)
[2022-10-23] MEDS: MAGNESIUM OXIDE 400 MG TABLET (FP) PO SCH ×2 (09:29→21:55)
[2022-10-23] MEDS: FUROSEMIDE 20 MG TABLET (FP) PO SCH (09:29)
[2022-10-23] MEDS: CHOLECALCIFEROL (VIT D3) 1,000 UNIT (25 MCG) TABLET PO SCH (09:29)
[2022-10-23] MEDS: FAMOTIDINE 20 MG TABLET PO SCH (09:29)
[2022-10-23] MEDS: predniSONE 5 MG TABLET (UD) PO SCH (09:29)
[2022-10-23] MEDS: ASPIRIN 81 MG CHEWABLE TABLETS PO SCH (09:29)
[2022-10-23] MEDS: MYCOPHENOLATE SODIUM 360 MG TABLET.DR PO SCH ×2 (09:30→21:56)
[2022-10-23] MEDS: TACROLIMUS ANHYDROUS 1 MG CAPSULE PO SCH ×2 (09:32→21:56)
[2022-10-23] MEDS: BUDESONIDE/FORMETEROL FUMARATE 160/4.5 mcg INHALER IH SCH ×2 (09:32→21:55)
[2022-10-23] MEDS: NIFEdipine E.R. 30 MG TABLET PO SCH (09:32)
[2022-10-23 12:31] LABS: BASO % 0.4 % (0-2.0); EOS % 0.7 % (0-4.5); HEMATOCRIT 28.4 % (32.4-45.2); LYMPH % 6.8 % (8-40); MCH 27.1 pg (25.7-33.7); MCHC 31.6 g/dl (32.0-36.0); MEAN CELL VOLUME 85.7 fl (80-96); MEAN PLT VOLUME 7.3 fl (7.5-11.1); MONO % 7.9 % (3.8-10.2); NEUT % 84.2 % (42.8-82.8); PLATELET COUNT 480 10^3/uL (134-434); RBC 3.31 M/mm3 (3.60-5.2); WHITE BLOOD COUNT 11.5 K/mm3 (4.0-10.0)
[2022-10-23 12:37] LABS: CALCIUM 9.8 mg/dL (8.5-10.1)
[2022-10-23 12:38] LABS: ALBUMIN 2.3 g/dl (3.4-5.0); BLOOD UREA NITROGEN 19.9 mg/dL (7-18); MAGNESIUM 1.9 mg/dL (1.8-2.4)
[2022-10-23 12:41] LABS: CREATININE 1.3 mg/dL (0.55-1.3)
[2022-10-23 12:42] LABS: BILIRUBIN,TOTAL 0.5 mg/dL (0.2-1); TOT PROT 6.3 g/dl (6.4-8.2)
[2022-10-23] MEDS: ATORVASTATIN CA 20 MG TABLET (FP) PO SCH (21:55)
[2022-10-23 23:32] VITALS: RESP 18
[2022-10-24] MEDS: CEFEPIME 2 GM in DEXTROSE 5%-WATER 100 ML IVPB SCH ×2 (06:05→17:23)
[2022-10-24] MEDS: sitaGLIPtin PHOSPHATE 50 MG TABLET PO SCH (06:06)
[2022-10-24] MEDS: INSULIN SLIDING SCALE (NOVOLOG) 1 VIAL SQ SCH ×4 (08:00→22:15)
[2022-10-24 09:55] LABS: BASO % 0.3 % (0-2.0); EOS % 0.9 % (0-4.5); HEMATOCRIT 28.8 % (32.4-45.2); HEMOGLOBIN 9.4 GM/dL (10.7-15.3); LYMPH % 9.2 % (8-40); MCH 27.6 pg (25.7-33.7); MCHC 32.6 g/dl (32.0-36.0); MEAN CELL VOLUME 84.7 fl (80-96); MEAN PLT VOLUME 7.1 fl (7.5-11.1); MONO % 7.4 % (3.8-10.2); NEUT % 82.2 % (42.8-82.8); PLATELET COUNT 460 10^3/uL (134-434); RDW 15.1 % (11.6-15.6); WHITE BLOOD COUNT 10.7 K/mm3 (4.0-10.0)
[2022-10-24 10:43] LABS: CALCIUM 9.8 mg/dL (8.5-10.1)
[2022-10-24 10:44] LABS: ALBUMIN 2.2 g/dl (3.4-5.0); BLOOD UREA NITROGEN 22.1 mg/dL (7-18); MAGNESIUM 1.7 mg/dL (1.8-2.4)
[2022-10-24 10:47] LABS: CREATININE 1.3 mg/dL (0.55-1.3)
[2022-10-24 10:49] LABS: BILIRUBIN,TOTAL 0.4 mg/dL (0.2-1); TOT PROT 6.2 g/dl (6.4-8.2)
[2022-10-24] MEDS: FUROSEMIDE 20 MG TABLET (FP) PO SCH (10:56)
[2022-10-24] MEDS: ASPIRIN 81 MG CHEWABLE TABLETS PO SCH (10:56)
[2022-10-24] MEDS: MAGNESIUM OXIDE 400 MG TABLET (FP) PO SCH ×2 (10:56→21:57)
[2022-10-24] MEDS: predniSONE 5 MG TABLET (UD) PO SCH (10:56)
[2022-10-24] MEDS: NIFEdipine E.R. 30 MG TABLET PO SCH (10:57)
[2022-10-24] MEDS: FAMOTIDINE 20 MG TABLET PO SCH (10:57)
[2022-10-24] MEDS: MYCOPHENOLATE SODIUM 360 MG TABLET.DR PO SCH ×2 (10:57→21:57)
[2022-10-24] MEDS: CHOLECALCIFEROL (VIT D3) 1,000 UNIT (25 MCG) TABLET PO SCH (10:58)
[2022-10-24] MEDS: TACROLIMUS ANHYDROUS 1 MG CAPSULE PO SCH ×2 (10:58→21:57)
[2022-10-24] MEDS: BUDESONIDE/FORMETEROL FUMARATE 160/4.5 mcg INHALER IH SCH ×2 (10:58→21:59)
[2022-10-24] MEDS ORDERED: ONDANSETRON *ODT* 4 MG TABLET SL PRN (13:56)
[2022-10-24] MEDS: ATORVASTATIN CA 20 MG TABLET (FP) PO SCH (21:57)
[2022-10-25] MEDS: CEFEPIME 2 GM in DEXTROSE 5%-WATER 100 ML IVPB SCH (06:03)
[2022-10-25] MEDS: sitaGLIPtin PHOSPHATE 50 MG TABLET PO SCH (06:13)
[2022-10-25] MEDS: INSULIN SLIDING SCALE (NOVOLOG) 1 VIAL SQ SCH ×2 (08:15→12:03)
[2022-10-25 09:48] LABS: BASO % 0.4 % (0-2.0); EOS % 0.8 % (0-4.5); HEMATOCRIT 27.1 % (32.4-45.2); HEMOGLOBIN 8.6 GM/dL (10.7-15.3); LYMPH % 8.9 % (8-40); MCH 27.3 pg (25.7-33.7); MCHC 31.7 g/dl (32.0-36.0); MEAN CELL VOLUME 86.1 fl (80-96); MEAN PLT VOLUME 7.2 fl (7.5-11.1); MONO % 6.8 % (3.8-10.2); NEUT % 83.1 % (42.8-82.8); PLATELET COUNT 439 10^3/uL (134-434); RBC 3.15 M/mm3 (3.60-5.2); RDW 15.4 % (11.6-15.6); WHITE BLOOD COUNT 10.6 K/mm3 (4.0-10.0)
[2022-10-25 10:05] LABS: ALBUMIN 2.3 g/dl (3.4-5.0); BLOOD UREA NITROGEN 24.5 mg/dL (7-18); MAGNESIUM 1.7 mg/dL (1.8-2.4)
[2022-10-25 10:08] LABS: CALCIUM 9.6 mg/dL (8.5-10.1); CREATININE 1.3 mg/dL (0.55-1.3)
[2022-10-25 10:10] LABS: BILIRUBIN,TOTAL 0.4 mg/dL (0.2-1); TOT PROT 6.3 g/dl (6.4-8.2)
[2022-10-25] MEDS: MAGNESIUM OXIDE 400 MG TABLET (FP) PO SCH (11:00)
[2022-10-25] MEDS: ASPIRIN 81 MG CHEWABLE TABLETS PO SCH (11:00)
[2022-10-25] MEDS: predniSONE 5 MG TABLET (UD) PO SCH (11:00)
[2022-10-25] MEDS: NIFEdipine E.R. 30 MG TABLET PO SCH (11:00)
[2022-10-25] MEDS: MYCOPHENOLATE SODIUM 360 MG TABLET.DR PO SCH (11:00)
[2022-10-25] MEDS: FUROSEMIDE 20 MG TABLET (FP) PO SCH (11:00)
[2022-10-25] MEDS: TACROLIMUS ANHYDROUS 1 MG CAPSULE PO SCH (11:00)
[2022-10-25] MEDS: FAMOTIDINE 20 MG TABLET PO SCH (11:00)
[2022-10-25] MEDS: CHOLECALCIFEROL (VIT D3) 1,000 UNIT (25 MCG) TABLET PO SCH (11:00)
[2022-10-25] MEDS: BUDESONIDE/FORMETEROL FUMARATE 160/4.5 mcg INHALER IH SCH (11:00)
[2022-10-25 15:37] VITALS: BP 124/60; PULSE 89; TEMP 98.9
== END 2022-10-25 16:26 | disposition home or self-care (01) | DRG 602 ==
LOC: JER 12:43 → JERBED 14:21 → J6W 10-16 11:37
PROVIDERS: ADMIT Internal Medicine; ATTEND Nurse Practitioner Family
PROC: 0Y9M3ZZ Drainage of Right Foot, Percutaneous Approach (ICD-10-PCS; principal; 2022-10-21)
DX: L03.031 Cellulitis of right toe (principal); N18.6 End stage renal disease; L02.611 Cutaneous abscess of right foot; A30.9 Leprosy, unspecified; I12.0 Hypertensive chronic kidney disease with stage 5 chronic kidney disease or end stage renal disease; Z94.0 Kidney transplant status; D64.9 Anemia, unspecified; E78.5 Hyperlipidemia, unspecified; E11.22 Type 2 diabetes mellitus with diabetic chronic kidney disease; Z99.2 Dependence on renal dialysis; K21.9 Gastro-esophageal reflux disease without esophagitis; Z89.429 Acquired absence of other toe(s), unspecified side
CPT/HCPCS: 0241U-QW; 36415; 73630-TC-RT-FY; 73718-TC-RT; 73721-RT-TC; 80053; 80197; 81003; 82728; 82962; 83036; 83540; 83550; 83735; 84100; 85025; 85651; 86140; 87040; 87070; 87086; 87205; 93926-TC; 97116-GP; 97161-GP; 99285-25; G0008; G0480; Q2036

== ENCOUNTER 2023-03-01 09:14 | Inpatient (IN) | payer OTHER ==
[2023-03-01 13:39] LABS: VENOUS BASE EXCESS -1.7 mmol/L (-2-2); VENOUS O2 SATURATION 86.9 % (70-80); VENOUS PCO2 38.9 mmHg (38-52); VENOUS PH 7.39 (7.310-7.410)
[2023-03-01 13:41] LABS: BASO % 0.2 % (0-2.0); EOS % 0.5 % (0-4.5); HEMATOCRIT 33.3 % (32.4-45.2); HEMOGLOBIN 11.1 GM/dL (10.7-15.3); LYMPH % 3.7 % (8-40); MCH 29.7 pg (25.7-33.7); MCHC 33.3 g/dl (32.0-36.0); MEAN CELL VOLUME 89.1 fl (80-96); MEAN PLT VOLUME 8.1 fl (7.5-11.1); MONO % 6.2 % (3.8-10.2); NEUT % 89.4 % (42.8-82.8); PLATELET COUNT 339 10^3/uL (134-434); RBC 3.74 M/mm3 (3.60-5.2); RDW 14.1 % (11.6-15.6); WHITE BLOOD COUNT 14.2 K/mm3 (4.0-10.0)
[2023-03-01 13:48] LABS: INR 1.09 (0.83-1.09); PROTHROMBIN TIME (PATIENT) 12.6 SEC (9.7-13.0)
[2023-03-01 13:51] LABS: ACTIVATED PTT 34.2 SECONDS (25.2-36.5)
[2023-03-01 13:58] LABS: POTASSIUM 4.3 mmol/L (3.5-5.1)
[2023-03-01 14:00] LABS: ALBUMIN 3.2 g/dl (3.4-5.0); CALCIUM 9.9 mg/dL (8.5-10.1)
[2023-03-01 14:01] LABS: BLOOD UREA NITROGEN 22.6 mg/dL (7-18)
[2023-03-01 14:04] LABS: CREATININE 1.1 mg/dL (0.55-1.3)
[2023-03-01 14:05] LABS: BILIRUBIN,TOTAL 0.6 mg/dL (0.2-1)
[2023-03-01] MEDS ORDERED: MEROPENEM 1 GM VIAL (RESTRICTED TO ID) IVPB ONE ×3 (14:28→20:51)
[2023-03-01] MEDS: MEROPENEM 1 GM in DEXTROSE 5%-WATER 100 ML IVPB SCH ×3 (14:44→20:57)
[2023-03-01] MEDS ORDERED: REPAGLINIDE 0.5 MG TABLET (FP) PO SCH (22:00)
[2023-03-01] MEDS: MAGNESIUM OXIDE 400 MG TABLET (FP) PO SCH (22:55)
[2023-03-01] MEDS: INSULIN (NOVOLOG) ASPART 100 UNITS/ML 10ML VIAL SQ SCH (22:55)
[2023-03-01] MEDS: ATORVASTATIN CA 20 MG TABLET (FP) PO SCH (22:55)
[2023-03-01] MEDS: TACROLIMUS ANHYDROUS 1 MG CAPSULE PO SCH (23:37)
[2023-03-01] MEDS: MYCOPHENOLATE SODIUM 360 MG TABLET.DR PO SCH (23:37)
[2023-03-01 23:52] VITALS: BMI 27.5
[2023-03-02] MEDS: MEROPENEM 1 GM in DEXTROSE 5%-WATER 100 ML IVPB SCH ×3 (01:36→17:26)
[2023-03-02] MEDS ORDERED: INSULIN (NOVOLOG) ASPART 100 UNITS/ML 10ML VIAL ONE ×2 (06:23→16:50)
[2023-03-02] MEDS: INSULIN (NOVOLOG) ASPART 100 UNITS/ML 10ML VIAL SQ SCH ×4 (06:25→22:40)
[2023-03-02 07:41] LABS: BASO % 0.5 % (0-2.0); EOS % 2.2 % (0-4.5); HEMATOCRIT 29.9 % (32.4-45.2); HEMOGLOBIN 10.2 GM/dL (10.7-15.3); LYMPH % 9.1 % (8-40); MCH 30.3 pg (25.7-33.7); MCHC 34.1 g/dl (32.0-36.0); MEAN CELL VOLUME 88.6 fl (80-96); MEAN PLT VOLUME 7.5 fl (7.5-11.1); MONO % 10.8 % (3.8-10.2); NEUT % 77.4 % (42.8-82.8); PLATELET COUNT 332 10^3/uL (134-434); RBC 3.37 M/mm3 (3.60-5.2); RDW 14.3 % (11.6-15.6); WHITE BLOOD COUNT 8.5 K/mm3 (4.0-10.0)
[2023-03-02 07:43] LABS: POTASSIUM 4.6 mmol/L (3.5-5.1)
[2023-03-02 07:46] LABS: BLOOD UREA NITROGEN 26.7 mg/dL (7-18)
[2023-03-02 07:48] LABS: CALCIUM 9.6 mg/dL (8.5-10.1)
[2023-03-02 07:49] LABS: ALBUMIN 2.6 g/dl (3.4-5.0); CREATININE 1.3 mg/dL (0.55-1.3); PHOSPHOROUS 3.1 mg/dL (2.5-4.9)
[2023-03-02 07:50] LABS: BILIRUBIN,TOTAL 0.6 mg/dL (0.2-1); TOT PROT 6.1 g/dl (6.4-8.2)
[2023-03-02] MEDS: predniSONE 5 MG TABLET (UD) PO SCH (09:33)
[2023-03-02] MEDS: ASPIRIN 81 MG CHEWABLE TABLETS PO SCH (09:33)
[2023-03-02] MEDS: MAGNESIUM OXIDE 400 MG TABLET (FP) PO SCH ×2 (09:34→22:15)
[2023-03-02] MEDS: CHOLECALCIFEROL (VIT D3) 1,000 UNIT (25 MCG) TABLET PO SCH (09:34)
[2023-03-02] MEDS: TACROLIMUS ANHYDROUS 1 MG CAPSULE PO SCH ×2 (10:18→22:15)
[2023-03-02] MEDS: MYCOPHENOLATE SODIUM 360 MG TABLET.DR PO SCH ×2 (12:00→22:15)
[2023-03-02] MEDS: ATORVASTATIN CA 20 MG TABLET (FP) PO SCH (22:15)
[2023-03-03] MEDS: MEROPENEM 1 GM in DEXTROSE 5%-WATER 100 ML IVPB SCH ×3 (02:14→17:53)
[2023-03-03] MEDS: INSULIN (NOVOLOG) ASPART 100 UNITS/ML 10ML VIAL SQ SCH ×4 (06:34→21:37)
[2023-03-03] MEDS ORDERED: INSULIN (NOVOLOG) ASPART 100 UNITS/ML 10ML VIAL ONE ×2 (06:44→21:07)
[2023-03-03 08:34] LABS: BASO % 0.6 % (0-2.0); EOS % 2.4 % (0-4.5); HEMATOCRIT 30.8 % (32.4-45.2); HEMOGLOBIN 10.3 GM/dL (10.7-15.3); LYMPH % 10.1 % (8-40); MCH 29.8 pg (25.7-33.7); MCHC 33.6 g/dl (32.0-36.0); MEAN CELL VOLUME 88.7 fl (80-96); MEAN PLT VOLUME 7.9 fl (7.5-11.1); NEUT % 76.9 % (42.8-82.8); PLATELET COUNT 332 10^3/uL (134-434); RBC 3.47 M/mm3 (3.60-5.2); RDW 13.9 % (11.6-15.6); WHITE BLOOD COUNT 6.5 K/mm3 (4.0-10.0)
[2023-03-03 08:44] LABS: POTASSIUM 4.2 mmol/L (3.5-5.1)
[2023-03-03 08:48] LABS: ALBUMIN 2.6 g/dl (3.4-5.0); BLOOD UREA NITROGEN 26.8 mg/dL (7-18); CALCIUM 9.8 mg/dL (8.5-10.1); MAGNESIUM 1.9 mg/dL (1.8-2.4)
[2023-03-03 08:51] LABS: CREATININE 1.2 mg/dL (0.55-1.3)
[2023-03-03 08:53] LABS: BILIRUBIN,TOTAL 0.6 mg/dL (0.2-1); TOT PROT 5.8 g/dl (6.4-8.2)
[2023-03-03] MEDS: predniSONE 5 MG TABLET (UD) PO SCH (09:29)
[2023-03-03] MEDS: ASPIRIN 81 MG CHEWABLE TABLETS PO SCH (09:29)
[2023-03-03] MEDS: MAGNESIUM OXIDE 400 MG TABLET (FP) PO SCH ×2 (09:29→21:37)
[2023-03-03] MEDS: CHOLECALCIFEROL (VIT D3) 1,000 UNIT (25 MCG) TABLET PO SCH (09:29)
[2023-03-03] MEDS: TACROLIMUS ANHYDROUS 1 MG CAPSULE PO SCH ×2 (09:30→21:38)
[2023-03-03] MEDS: MYCOPHENOLATE SODIUM 360 MG TABLET.DR PO SCH ×2 (09:30→21:37)
[2023-03-03] MEDS: REGRANEX 0.01% PO SCH (12:43)
[2023-03-03] MEDS: [UNRECOGNIZED DRUG - OTHER] PO SCH (12:43)
[2023-03-03] MEDS: NIFEdipine E.R. 30 MG TABLET PO SCH (12:43)
[2023-03-03] MEDS: ATORVASTATIN CA 20 MG TABLET (FP) PO SCH (21:37)
[2023-03-04] MEDS: MEROPENEM 1 GM in DEXTROSE 5%-WATER 100 ML IVPB SCH ×3 (03:13→17:39)
[2023-03-04] MEDS ORDERED: INSULIN (NOVOLOG) ASPART 100 UNITS/ML 10ML VIAL ONE ×3 (06:03→21:42)
[2023-03-04] MEDS: INSULIN (NOVOLOG) ASPART 100 UNITS/ML 10ML VIAL SQ SCH ×4 (06:21→22:07)
[2023-03-04] MEDS: CHOLECALCIFEROL (VIT D3) 1,000 UNIT (25 MCG) TABLET PO SCH (09:39)
[2023-03-04] MEDS: NIFEdipine E.R. 30 MG TABLET PO SCH (09:39)
[2023-03-04] MEDS: predniSONE 5 MG TABLET (UD) PO SCH (09:39)
[2023-03-04] MEDS: MAGNESIUM OXIDE 400 MG TABLET (FP) PO SCH ×2 (09:39→22:06)
[2023-03-04] MEDS: MYCOPHENOLATE SODIUM 360 MG TABLET.DR PO SCH ×2 (09:40→22:06)
[2023-03-04] MEDS: ASPIRIN 81 MG CHEWABLE TABLETS PO SCH (09:40)
[2023-03-04] MEDS: TACROLIMUS ANHYDROUS 1 MG CAPSULE PO SCH ×2 (09:40→22:06)
[2023-03-04 13:41] LABS: BASO % 0.4 % (0-2.0); EOS % 1.5 % (0-4.5); HEMATOCRIT 32.9 % (32.4-45.2); HEMOGLOBIN 10.8 GM/dL (10.7-15.3); LYMPH % 7.3 % (8-40); MCH 29.4 pg (25.7-33.7); MEAN CELL VOLUME 89.1 fl (80-96); MEAN PLT VOLUME 7.9 fl (7.5-11.1); MONO % 7.2 % (3.8-10.2); NEUT % 83.6 % (42.8-82.8); PLATELET COUNT 374 10^3/uL (134-434); RBC 3.69 M/mm3 (3.60-5.2); RDW 14.1 % (11.6-15.6)
[2023-03-04 14:00] LABS: POTASSIUM 4.5 mmol/L (3.5-5.1)
[2023-03-04 14:02] LABS: CALCIUM 9.9 mg/dL (8.5-10.1)
[2023-03-04 14:03] LABS: ALBUMIN 2.9 g/dl (3.4-5.0); BLOOD UREA NITROGEN 27.5 mg/dL (7-18)
[2023-03-04 14:06] LABS: CREATININE 1.1 mg/dL (0.55-1.3)
[2023-03-04 14:08] LABS: BILIRUBIN,TOTAL 0.5 mg/dL (0.2-1)
[2023-03-04 14:09] LABS: TOT PROT 6.5 g/dl (6.4-8.2)
[2023-03-04] MEDS: [UNRECOGNIZED DRUG - OTHER] PO SCH (14:42)
[2023-03-04] MEDS: REGRANEX 0.01% PO SCH (14:42)
[2023-03-04] MEDS: ATORVASTATIN CA 20 MG TABLET (FP) PO SCH (22:06)
[2023-03-05] MEDS: MEROPENEM 1 GM in DEXTROSE 5%-WATER 100 ML IVPB SCH (01:19)
[2023-03-05] MEDS ORDERED: INSULIN (NOVOLOG) ASPART 100 UNITS/ML 10ML VIAL ONE (05:50)
[2023-03-05] MEDS: INSULIN (NOVOLOG) ASPART 100 UNITS/ML 10ML VIAL SQ SCH ×2 (06:06→11:22)
[2023-03-05] MEDS ORDERED: AMOX TR/POT CLAV 875MG/125MG TABLETS (FP) PO SCH (08:00)
[2023-03-05] MEDS: NIFEdipine E.R. 30 MG TABLET PO SCH (09:55)
[2023-03-05] MEDS: ASPIRIN 81 MG CHEWABLE TABLETS PO SCH (09:55)
[2023-03-05] MEDS: MAGNESIUM OXIDE 400 MG TABLET (FP) PO SCH (09:55)
[2023-03-05] MEDS: TACROLIMUS ANHYDROUS 1 MG CAPSULE PO SCH (09:57)
[2023-03-05] MEDS: predniSONE 5 MG TABLET (UD) PO SCH (09:57)
[2023-03-05] MEDS: CHOLECALCIFEROL (VIT D3) 1,000 UNIT (25 MCG) TABLET PO SCH (09:57)
[2023-03-05] MEDS: MYCOPHENOLATE SODIUM 360 MG TABLET.DR PO SCH (09:58)
[2023-03-05] MEDS ORDERED: DOXYCYCLINE HYCLATE 100 MG CAPSULE PO SCH (10:00)
[2023-03-05] MEDS: [UNRECOGNIZED DRUG - OTHER] PO SCH (10:41)
[2023-03-05] MEDS: REGRANEX 0.01% PO SCH (10:41)
[2023-03-05 11:40] LABS: BASO % 0.4 % (0-2.0); EOS % 1.6 % (0-4.5); HEMATOCRIT 34.4 % (32.4-45.2); HEMOGLOBIN 11.6 GM/dL (10.7-15.3); LYMPH % 11.1 % (8-40); MCHC 33.8 g/dl (32.0-36.0); MEAN CELL VOLUME 88.6 fl (80-96); MEAN PLT VOLUME 7.6 fl (7.5-11.1); MONO % 7.8 % (3.8-10.2); NEUT % 79.1 % (42.8-82.8); PLATELET COUNT 383 10^3/uL (134-434); RBC 3.88 M/mm3 (3.60-5.2); RDW 13.8 % (11.6-15.6); WHITE BLOOD COUNT 7.9 K/mm3 (4.0-10.0)
[2023-03-05 11:55] LABS: POTASSIUM 4.3 mmol/L (3.5-5.1)
[2023-03-05 11:59] LABS: ALBUMIN 2.9 g/dl (3.4-5.0); BLOOD UREA NITROGEN 26.8 mg/dL (7-18); CALCIUM 10.3 mg/dL (8.5-10.1)
[2023-03-05 12:02] LABS: CREATININE 1.1 mg/dL (0.55-1.3)
[2023-03-05 12:04] LABS: BILIRUBIN,TOTAL 0.5 mg/dL (0.2-1); TOT PROT 6.4 g/dl (6.4-8.2)
[2023-03-05 12:29] VITALS: BP 143/74; PULSE 88; RESP 17; TEMP 98.1
== END 2023-03-05 13:50 | disposition home or self-care (01) | DRG 872 ==
LOC: JER 09:14 → JERBED 15:17 → J8W 21:58
PROVIDERS: ADMIT Internal Medicine; ATTEND Nurse Practitioner Acute Care
DX: A41.9 Sepsis, unspecified organism (principal); L03.115 Cellulitis of right lower limb; Z94.0 Kidney transplant status; E78.5 Hyperlipidemia, unspecified; J45.909 Unspecified asthma, uncomplicated; Z79.84 Long term (current) use of oral hypoglycemic drugs; I10 Essential (primary) hypertension; E11.9 Type 2 diabetes mellitus without complications
CPT/HCPCS: 0241U-QW; 36415; 73610-TC-RT-FY; 80053; 82803; 82962; 83605; 83735; 84100; 84443; 85025; 85610; 85730; 86140; 87040; 93005; 93010; 93926-TC; 93971-TC; 97116-GP; 97162-GP; 97597; 99285-25; G0277